=== PATIENT | female | born 1955 | race Caucasian/White ===

== ENCOUNTER 2016-09-30 10:47 | Inpatient (IN) | payer OTHER ==
[2016-09-30] MEDS ORDERED: ACETAMINOPHEN INJECTION 100 ML IVPB ONE (10:54)
--- NOTE | 2016-09-30 10:55 | PDOC ---
History of Present Illness - General History Source: Alf Records, Old Records, Primary Care Provider Exam Limitations: Unresponsive - History of Present Illness Initial Comments: 09/30/16 11:24 The patient is a 61 year old female brought via EMS, with a significant past medical history of anemia, dementia, diabetes, HLD, thyroid disease and hyperparathyroidism, who presents to the emergency department unresponsive. Upon presentation, the patient is unable to give a history. Allergies: None Past surgical history: Cholecystectomy, gastric bypass Social history: No alcohol, tobacco or drug use PMD - Dr. Cruzito Rojas <Rob Connelly - Last Filed: 09/30/16 11:24> <Charmaine Bowman - Last Filed: 09/30/16 14:24> - General Stated Complaint: UNRESPONSIVE Time Seen by Provider: 09/30/16 10:54 Past History <Rob Connelly - Last Filed: 09/30/16 11:24> - Past Medical History Anemia: No Asthma: Yes Cancer: No Cardiac Disorders: No CVA: No COPD: No CHF: No Dementia: Yes Diabetes: Yes GI Disorders: No Disorders: No HTN: No Hypercholesterolemia: Yes Liver Disease: No Seizures: Yes Thyroid Disease: Yes (hyperparathyroidism) - Surgical History Abdominal Surgery: Yes Appendectomy: No Cardiac Surgery: No Cholecystectomy: Yes GI Surgery: Yes (bariatric) Lung Surgery: No Neurologic Surgery: No Orthopedic Surgery: No - Psycho/Social/Smoking Cessation Hx Anxiety: No Suicidal Ideation: No Smoking Status: No Smoking History: Unknown if ever smoked Have you smoked in the past 12 months: No Number of Cigarettes Smoked Daily: 0 Hx Alcohol Use: No Drug/Substance Use Hx: No Substance Use Type: None Hx Substance Use Treatment: No <Charmaine Bowman - Last Filed: 09/30/16 14:24> - Past Medical History Allergies/Adverse Reactions: Allergies Allergy/AdvReac Type Severity Reaction Status Date / Time No Known Allergies Allergy Verified 05/03/16 11:53 Home Medications: Ambulatory Orders Acetaminophen [Extra Strength Non-Aspirin] 500 mg PO BID 09/30/16 Ascorbic Acid [Vitamin C] 500 mg PO DAILY 09/30/16 Atorvastatin Ca [Lipitor] 40 mg PO HS 09/30/16 Heparin - 5,000 unit SQ BID 09/30/16 Insulin (LOG) Aspart [NovoLOG -] 0 unit SQ DAILY 09/30/16 Insulin (Levemir) [Levemir Flexpen -] 16 units SQ DAILY 09/30/16 Insulin (Levemir) [Levemir Flexpen -] 25 units SQ HS 09/30/16 Levetiracetam [Keppra -] 500 mg PO DAILY 09/30/16 Magnesium Oxide [Magnesium] 400 mg PO BID 09/30/16 Multivitamin [Poly-Vitamin] 1 each PO DAILY 09/30/16 Potassium Chloride [KCl -] 40 meq PO DAILY 09/30/16 Ranitidine [Zantac -] 150 mg PO DAILY 09/30/16 Review of Systems - Review of Systems Able to Perform ROS?: No Comments:: 09/30/16 11:25 The patient is unable to provide a history due to unresponsiveness. <Rob Connelly - Last Filed: 09/30/16 11:24> *Physical Exam - Vital Signs Last Vital Signs Temp Pulse Resp BP Pulse Ox 106 F H 117 H 57 H 82/20 09/30/16 10:58 09/30/16 10:58 09/30/16 10:58 09/30/16 10:58 <Rob Connelly - Last Filed: 09/30/16 11:24> - Physical Exam Comments: GENERAL: Lethargic, ill-appearing. HEAD: No signs of trauma EYES: PERRLA, EOMI, sclera anicteric, conjunctiva clear ENT: Auricles normal inspection, hearing grossly normal, nares patent, oropharynx clear without exudates. Dry mucosa NECK: Normal ROM, supple, no lymphadenopathy, JVD, or masses LUNGS: Diffuse rhonchi. Grunting. HEART: Tachycardic. ABDOMEN: Soft, nontender, normoactive bowel sounds. No guarding, no rebound. No masses EXTREMITIES: Normal range of motion, no edema. No clubbing or cyanosis. No cords, erythema, or tenderness NEUROLOGICAL: Unable to assess, patient altered. SKIN: Warm, Dry, normal turgor. Large sacral decubitus ulcer. <Charmaine Bowman - Last Filed: 09/30/16 14:24> ED Treatment Course - LABORATORY CBC & Chemistry Diagram: 09/30/16 11:30 09/30/16 11:30 <Charmaine Bowman - Last Filed: 09/30/16 14:24> Medical Decision Making - Medical Decision Making 09/30/16 11:25 Dr. Cruzito Rojas was called regarding the patient at 11:08am Dr. Rojas was consulted when he came in person to the ED at 11:24am [phone] <Rob Connelly - Last Filed: 09/30/16 11:24> - Critical Care Time Total Critical Care Time (minutes): 35 Critical Care Statement: The care of this patient involved high complexity decision making to prevent further life threatening deterioration of the patient 's condition and/or to evalute & treat vital organ system(s) failure or risk of failure. - Medical Decision Making 09/30/16 11:[address] Rojas at bedside. I have ordered sepsis protocol, IV fluids , vanco/zosyn for presumed sepsis. Will place her on BiPAP for work of breathing. 09/30/16 12:15 Approved for ICU by Dr. Huerta. <Charmaine Bowman - Last Filed: 09/30/16 14:24> *DC/Admit/Observation/Transfer - Attestations Scribe Attestion: 09/30/16 11:25 Documentation prepared by Rob Connelly, acting as medical office worker for Charmaine Bowman MD <Rob Connelly - Last Filed: 09/30/16 11:24> - Discharge Dispostion Admit: Yes <Charmaine Bowman - Last Filed: 09/30/16 14:24> Diagnosis at time of Disposition: Sepsis Qualifiers: Sepsis type: sepsis due to unspecified organism Qualified Code(s): A41.9 - Sepsis, unspecified organism Sacral decubitus ulcer Qualifiers: Pressure ulcer stage: unspecified pressure ulcer stage Qualified Code(s): L89.159 - Pressure ulcer of sacral region, unspecified stage - Discharge Dispostion Condition at time of disposition: Critical
[2016-09-30] MEDS ORDERED: VANCOMYCIN 1,000 MG in DEXTROSE 5%-WATER - 250 ML IVPB ONE (11:06)
[2016-09-30] MEDS ORDERED: PIPERACILLIN/TAZOBACTAM 4.5 GM VIAL IVPB ONE (11:06)
[2016-09-30] MEDS ORDERED: SODIUM CHLORIDE 1,000 ML IV STA ×2 (11:11→12:31)
[2016-09-30] MEDS ORDERED: ACETAMINOPHEN 1000 MG/100 ML VIAL (NON FORMULARY) IVPB ONE ×2 (11:13→22:38)
[2016-09-30 11:40] LABS: VENOUS PH 7.42 (7.32-7.42)
[2016-09-30 11:41] LABS: VENOUS BLOOD GAS HCO3 27.1 meq/L (19-25)
--- NOTE | 2016-09-30 11:42 | HP ---
[id number] Chief Complaint: Low Blood. Unresponsiveness History of Present Illness: Pt is a resident of [facility], with known PMHx significant for Stage 4 sacral ulcer, sacral OM, DM, Advanced Dementia noticed this AM to be unresponsive and have a low SBP ( 80's). Pt came to ER where was found to have Temp of 106, low SBP, tachypneic ( my evaluation 40 breaths/ min.), unresponsive. History Source: Significant Other - Past Medical History BRAID CUTTER: Yes: Dementia (advanced, nonverbal), Seizure Cardiovascular: Yes: Other Pulmonary: Yes: Asthma Gastrointestinal: Yes: Constipation Renal/: Yes: UTI Infectious Disease: Yes: Other (Sacral osteomyelitis Sepsis) Psych: Yes: Other (Dementia) Endocrine: Yes: Diabetes Mellitus, Hyperparathyroidism, Hypothyroidism Dermatology: Yes: Other (Pressure ulcer stage 4) - Past Surgical History Past Surgical History: Yes: Cholecystectomy - Smoking History Smoking history: Unknown if ever smoked Have you smoked in the past 12 months: No Aproximately how many cigarettes per day: 0 - Alcohol/Substance Use Hx Alcohol Use: No History of Substance Use: reports: None - Social History ADL: Support Services History of Recent Travel: No Home Medications - Allergies Allergies/Adverse Reactions: Allergies Allergy/AdvReac Type Severity Reaction Status Date / Time No Known Allergies Allergy Verified 05/03/16 11:53 - Home Medications Home Medications: Ambulatory Orders Acetaminophen [Extra Strength Non-Aspirin] 500 mg PO BID 09/30/16 Ascorbic Acid [Vitamin C] 500 mg PO DAILY 09/30/16 Atorvastatin Ca [Lipitor] 40 mg PO HS 09/30/16 Heparin - 5,000 unit SQ BID 09/30/16 Insulin (LOG) Aspart [NovoLOG -] 0 unit SQ DAILY 09/30/16 Insulin (Levemir) [Levemir Flexpen -] 16 units SQ DAILY 09/30/16 Insulin (Levemir) [Levemir Flexpen -] 25 units SQ HS 09/30/16 Levetiracetam [Keppra -] 500 mg PO DAILY 09/30/16 Magnesium Oxide [Magnesium] 400 mg PO BID 09/30/16 Multivitamin [Poly-Vitamin] 1 each PO DAILY 09/30/16 Potassium Chloride [KCl -] 40 meq PO DAILY 09/30/16 Ranitidine [Zantac -] 150 mg PO DAILY 09/30/16 Review of Systems Unable to obtain ROS, reason: secondary to sepsis. Physical Examination Vital Signs: Vital Signs Temperature 106 F H 09/30/16 10:58 Pulse Rate 120 H 09/30/16 11:33 Respiratory Rate 57 H 09/30/16 10:58 Blood Pressure 82/20 09/30/16 10:58 O2 Sat by Pulse Oximetry (%) 94 L 09/30/16 11:33 Constitutional: Yes: Mild Distress Eyes: Yes: Conjunctiva Clear, EOM Intact, PERRL HENT: Yes: Atraumatic. No: Rhinnorhea, Thrush Neck: Yes: Rigid (old) Cardiovascular: Yes: Tachycardia, S1, S2 Respiratory: Yes: Rhonchi (bilat.), Tachypnea Gastrointestinal: Yes: Normal Bowel Sounds, Soft. No: Palpable Mass ...Rectal Exam: Yes: Deferred Edema: No Integumentary: Yes: Other (stage 4 scral ulcer) Neurological: Yes: Lethargy Labs: pending Problem List - Problems (1) Septic shock Assessment/Plan: IV abtx Bolus IVF, then continue IVF; pt might need pressors to maintan BP (pt. received already over 2 L IVF bolus) Admit to ICU. ID consult. CCM consult Code(s): A41.9 - SEPSIS, UNSPECIFIED ORGANISM R65.21 - SEVERE SEPSIS WITH SEPTIC SHOCK (2) Acute respiratory failure Assessment/Plan: ON BIPAP; Pt is DNI. TO f/u with ICU attending ABG in AM. Code(s): J96.00 - ACUTE RESPIRATORY FAILURE, UNSP W HYPOXIA OR HYPERCAPNIA (3) UTI (urinary tract infection) Assessment/Plan: Might be the source of infection IV abtx F/u UCX Code(s): N39.0 - URINARY TRACT INFECTION, SITE NOT SPECIFIED Qualifiers: Urinary tract infection type: catheter-associated UTI Indwelling urinary catheter type: indwelling urethral catheter Encounter type: initial encounter Qualified Code(s): T83.511A - Infection and inflammatory reaction due to indwelling urethral catheter, initial encounter; N39.0 - Urinary tract infection, site not specified (4) Ulcer of sacral region, stage 4 Code(s): L89.154 - PRESSURE ULCER OF SACRAL REGION, STAGE 4 (5) Diabetes mellitus Assessment/Plan: BGM and Coverage only Code(s): E11.9 - TYPE 2 DIABETES MELLITUS WITHOUT COMPLICATIONS Qualifiers: Diabetes mellitus type: other specified (including FERCHO) (6) Endocarditis Assessment/Plan: HX/o endocarditis Code(s): I38 - ENDOCARDITIS, VALVE UNSPECIFIED (7) Seizure Assessment/Plan: on Keppra Code(s): R56.9 - UNSPECIFIED CONVULSIONS Qualifiers: Convulsion type: unspecified Qualified Code(s): R56.9 - Unspecified convulsions Assessment/Plan Pt. with poor prognosis given overall status, current medical condition. Pt. is DNR, DNI. AM labs. Time spent for patient care: over 75 min
[2016-09-30] MEDS ORDERED: PIPERACILLIN/TAZOB 4.5 GM 100 ML IVPB ONE (11:43)
[2016-09-30 11:46] LABS: URINE APPEARANCE TURBID; URINE BILIRUBIN NEGATIVE (NEGATIVE); URINE COLOR YELLOW; URINE GLUCOSE (UA) NEGATIVE (NEGATIVE); URINE KETONE NEGATIVE (NEGATIVE); URINE NITRITE NEGATIVE (NEGATIVE); URINE UROBILINOGEN NEGATIVE E.U./dl (0.2-1.0)
[2016-09-30 11:48] LABS: BASOPHIL 0.5 % (0-2.0); MCH 26.9 pg (25.7-33.7); MCHC 31.3 g/dl (32.0-36.0); MEAN CELL VOLUME 86.1 fl (80-96); MEAN PLT VOLUME 9.8 fl (7.5-11.1); NEUTROPHILS 88.5 % (42.8-82.8); PLATELET COUNT 216 K/MM3 (134-434); RDW 15.4 % (11.6-15.6); WHITE BLOOD COUNT 14.7 K/mm3 (4.0-10.0)
[2016-09-30] MEDS ORDERED: VANCOMYCIN 1 GRAM (PRE-DOCKED) 250 ML IVPB ONE (11:48)
[2016-09-30 11:50] LABS: URINE BLOOD 1+ (NEGATIVE); URINE LEUK ESTERASE 1+ (NEGATIVE); URINE PROTEIN 3+ (NEGATIVE)
[2016-09-30 12:00] LABS: URINE BACTERIA MANY /hpf (NONE SEEN); URINE MUCUS FEW; URINE RBC 45 /hpf (0-3); URINE WBC 104 /hpf (3-5)
[2016-09-30 12:05] LABS: INR 1.23 (0.82-1.09); PROTHROMBIN TIME (PATIENT) 13.6 SEC (9.98-11.88)
[2016-09-30 12:07] LABS: ACTIVATED PTT 27.7 SECONDS (26.9-34.4)
[2016-09-30 12:15] LABS: ALBUMIN 3.1 g/dl (3.4-5.0); BILIRUBIN,TOTAL 0.5 mg/dL (0.2-1.0); CALCIUM 9.4 mg/dL (8.5-10.1); CREATININE 2.4 mg/dL (0.55-1.02); TOT PROT 7.3 g/dl (6.4-8.2)
--- NOTE | 2016-09-30 12:23 | PN ---
Progress Note, Physician Chief Complaint: ID Consult dictated and discussed with Dr Rojas tachpneic hypotensive febrile - Current Medication List Current Medications: Active Medications Ascorbic Acid (Vitamin C -) 500 mg PO BID ANTONIETA Atorvastatin Calcium (Lipitor -) 40 mg PO HS ANTONIETA Heparin Sodium (Porcine) (Heparin -) 5,000 unit SQ BID ANTONIETA Vancomycin HCl 1,000 mg/ (Dextrose) 250 mls @ 200 mls/hr IVPB ONCE ONE Stop: 09/30/16 12:20 Last Admin: 09/30/16 11:51 Dose: 200 mls/hr Insulin Aspart (Novolog Vial Sliding Scale -) 1 vial SQ Q4H ANTONIETA PRN Reason: Protocol Levetiracetam (Keppra -) 500 mg PO BID ANTONIETA Magnesium Oxide (Mag-Ox -) 800 mg PO BID ANTONIETA Multivitamins/Minerals/Vitamin C (Tab-A-Vit -) 1 tab PO DAILY ANTONIETA Nystatin (Nystop Powder -) 1 applic TP DAILY ANTONIETA Zinc Sulfate (Orazinc -) 220 mg PO DAILY ANTONIETA - Objective Vital Signs: Vital Signs Temperature 106.2 F H 09/30/16 10:58 Pulse Rate 107 H 09/30/16 12:00 Respiratory Rate 35 H 09/30/16 12:00 Blood Pressure 100/40 09/30/16 12:00 O2 Sat by Pulse Oximetry (%) 100 09/30/16 12:00 Constitutional: Yes: Severe Distress, Thin, Other (Venit mask) Cardiovascular: Yes: WNL, Regular Rate and Rhythm, Tachycardia, S1, S2 Respiratory: Yes: WNL, Regular, CTA Bilaterally Gastrointestinal: Yes: Soft. No: Tenderness, Tenderness, Epigastrium Extremities: Yes: Other (Contracted) Edema: No Wound/Incision: Yes: Other (stage 4 sacral decub clean) Labs: CBC, BMP 09/30/16 11:30 INR, PTT INR 1.23 (0.82-1.09) H 09/30/16 11:30 Problem List - Problems (1) Sacral decubitus ulcer Code(s): L89.159 - PRESSURE ULCER OF SACRAL REGION, UNSPECIFIED STAGE Qualifiers: Pressure ulcer stage: unspecified pressure ulcer stage Qualified Code(s ): L89.159 - Pressure ulcer of sacral region, unspecified stage (2) Sepsis Code(s): A41.9 - SEPSIS, UNSPECIFIED ORGANISM Qualifiers: Sepsis type: sepsis due to unspecified organism Qualified Code(s): A41.9 - Sepsis, unspecified organism (3) UTI (urinary tract infection) due to urinary indwelling catheter Code(s): T83.511A - I/I REACT D/T INDWELLING URETHRAL CATHETER, INIT N39.0 - URINARY TRACT INFECTION, SITE NOT SPECIFIED Assessment/Plan Microbiology 05/03/16 12:34 Blood - Peripheral Venous Blood Culture - Final Staphylococcus Epidermidis 05/03/16 12:28 Urine - Urine - Catheterized Urine Culture - Final Proteus Mirabilis Enterococcus Faecalis Laboratory Tests 09/30/16 09/30/16 09/30/16 11:30 11:30 11:30 WBC 14.7 H D Hct 51.3 H D Plt Count 216 INR 1.23 H Ur Leukocyte Esterase 1+ H D ASSESSMENT SEPSIS URINARY SOURCE RESPIRATORY DISTRESS ? ASPIRATION SILENT BY HISTORY DECUBITUS STAGE 4 CLEAN DEMENTIA PLAN ICU LINEZOLID MEROPENEM PROGNOSIS POOR DISCUSSED WITH DR FERNANDA RAINEY
[2016-09-30 12:33] LABS: TROPONIN I 0.55 ng/ml (0.00-0.05)
[2016-09-30] MEDS ORDERED: SODIUM CHLORIDE 2,000 ML IV STA (12:58)
[2016-09-30] MEDS: LINEZOLID 600 MG PREMIX BAG 300 ML IVPB SCH ×2 (13:20→21:17)
--- NOTE | 2016-09-30 13:21 | CONS ---
DATE OF CONSULTATION: DATE OF DICTATION: 09/30/2016 This is a 61-year-old female from [facility] with severe dementia who I am asked to see with sepsis syndrome. She presented to the hospital with a 106 fever, unresponsive, hypotensive, and tachypneic at 40 breaths per minute. She has a history of urinary infections, in the past, including with resistant organism VREF. She has not been recently admitted to the hospital. She has a chronic Alfred catheter and a chronic stage IV sacral decubitus ulcer, according to her primary doctor. She is also noted to have silent aspiration, as per a prior swallowing evaluation. PAST MEDICAL HISTORY: In addition, asthma; sacral decubitus; dementia; diabetes; hyperparathyroidism; hypothyroidism; cholecystectomy. MEDICATIONS: Include atorvastatin; insulin; multivitamins; ranitidine; and Keppra. ALLERGIES: None known. SOCIAL HISTORY: A non-smoker. No history of alcohol or substance abuse. FAMILY HISTORY: Unobtainable. REVIEW OF SYSTEMS: Respiratory: Tachypnea. No cough, hemoptysis. Cardiac: No history of heart murmur, chest pain, palpitations, syncope. GI: No abdominal pain, vomiting, diarrhea. : Chronic indwelling Alfred. SKIN: Stage IV sacral decubitus ulcer. PHYSICAL EXAMINATION: General: Physical examination revealed a thin-appearing woman in extremis, breathing 40 to 50 times a minute, on a Ventimask. Vital signs: Tachycardic at 120; fever of 106; blood pressure 80/40. Neck: Supple. Lungs: Diminished breath sounds. Heart: S1, S2, tachycardic. Abdomen: Soft, nontender, without hepatosplenomegaly. Extremities: Without clubbing, cyanosis, or edema. Contracted. Skin: Revealed a stage IV large sacral decubitus. The white count was 14.7, hemoglobin 16, platelets of 216. BUN and creatinine pending. Lactic acid pending. Urinalysis with 123 WBCs, 4 RBCs, 1+ leukocyte esterase. Chest x-ray shows no acute infiltrate. ASSESSMENT: 1. Sepsis syndrome. 2. Urinary tract infection with purulent, foul-smelling urine from the Alfred catheter. 3. Sacral decubitus ulcer, stage IV. 4. Silent aspiration, by history. 5. History of dementia from early age. 6. 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 PLAN: Blood cultures. Urine culture. Empiric therapy with an aggressive approach toward antibiotics, at this point, with meropenem and linezolid, pending cultures. DNR status to be discussed by Dr. Rojas. The case was discussed at length with Dr. Rojas regarding plan to transfer the patient to the intensive care unit. CASPER RAINEY M.D. [id number]
[2016-09-30 13:40] VITALS: BMI 22.3
[2016-09-30] MEDS: INSULIN SLIDING SCALE (NOVOLOG) 1 VIAL SQ SCH ×3 (16:45→21:27)
[2016-09-30] MEDS: MEROPENEM 1 GM in DEXTROSE 5%-WATER - 100 ML IVPB SCH (17:38)
[2016-09-30] MEDS ORDERED: LORAZEPAM CARPU-JECT 2 MG/ML DISP.SYRIN IVPUSH ONE (17:41)
[2016-09-30] MEDS ORDERED: LORAZEPAM CARPU-JECT 2 MG/ML DISP.SYRIN ONE (17:42)
--- NOTE | 2016-09-30 18:22 | EKG ---
Test Reason : Blood Pressure : / mmHG Vent. Rate : 115 BPM Atrial Rate : 115 BPM P-R Int : 126 ms QRS Dur : 066 ms QT Int : 314 ms P-R-T Axes : 028 -13 050 degrees QTc Int : 434 ms SINUS TACHYCARDIA MODERATE VOLTAGE CRITERIA FOR LVH, MAY BE NORMAL VARIANT NONSPECIFIC ST ABNORMALITY ABNORMAL ECG WHEN COMPARED WITH ECG OF 03-MAY-2016 12:56, ST NOW DEPRESSED IN LATERAL LEADS T WAVE AMPLITUDE HAS INCREASED IN ANTERIOR LEADS Confirmed by GRECIA MANCIA MD ([id number]) on 09/30/2016 6:22:14 PM Referred By: Confirmed By:GRECIA MANCIA MD
[2016-09-30 19:01] LABS: ALBUMIN 2.1 g/dl (3.4-5.0); BILIRUBIN,TOTAL 0.5 mg/dL (0.2-1.0); CALCIUM 7.1 mg/dL (8.5-10.1); CREATININE 1.5 mg/dL (0.55-1.02)
[2016-09-30 19:04] LABS: TROPONIN I 0.33 ng/ml (0.00-0.05)
[2016-09-30] MEDS ORDERED: DOPAMINE 400 MG/D5W - 250 ML IVPB ONE (20:35)
[2016-09-30 20:45] LABS: ARTERIAL BLD GAS O2 SATURATION 98.9 % (90-98.9); ARTERIAL BLOOD GAS BASE EXCESS -4.8 meq/l (-2-2); ARTERIAL BLOOD GAS HCO3 18.4 meq/L (22-26)
[2016-09-30] MEDS ORDERED: DOPAMINE 400 MG/D5W - 250 ML IVPB SCH (20:45)
[2016-09-30 20:46] LABS: ALLENS TEST POSITIVE; ART PUNCT SITE RIGHT RADIAL; LPM/O2% 100%; PT. ON O2? YES; TYPE OF O2 BI-PAP; VENT RATE 16; VT/PRESS 14/6
[2016-09-30] MEDS: ASCORBIC ACID 500 MG TABLET (FP) PO SCH (21:17)
[2016-09-30] MEDS: levETIRAcetam 500 MG/5 ML INJECTION VIAL IVPB SCH (21:17)
[2016-09-30] MEDS: MAGNESIUM OXIDE 400 MG TABLET (FP) PO SCH (21:17)
[2016-09-30] MEDS: HEPARIN NA (PORCINE) 5,000 UNITS/ML 1ML VIAL SQ SCH (21:17)
[2016-09-30] MEDS: ATORVASTATIN CA 40 MG TABLET (FP) PO SCH (21:17)
[2016-09-30] MEDS: CHLORHEXIDINE GLUCONATE 4% CLEANSER FOR DECOLONIZATION TP SCH (21:28)
[2016-09-30] MEDS: MUPIROCIN 2% TOPICAL OINTMENT FOR DECOLONIZATION NS SCH (21:28)
--- NOTE | 2016-09-30 21:33 | CONSULT ---
Consult Consult Specialty:: Pulm/CCM Reason for Consultation:: septic shock, OZZIE, NSTEMI, resp distress - History of Present Illness Chief Complaint: AMS, fever History of Present Illness: This is a 61 yo woman NHR since 2007 for dementia, non verbal bed bound w/ chronic casas at baseline PMH: seizure on keppra, IDDM, stage 4 sacral decub w/ h/o osteomyelitis who presented from the [facility] w/ AMS (unresponsive to stimulation) , hypotension (SBP 80s) respiratory distress (RR 40s) and febrile (106 F). Labs significant for lactate 5, leukocytosis (14.7), SCr (2.4). Hyperkalemia ( 6.4), troponin (0.55) and transaminitis (400/836). Patient placed on NIPPV (20/12 ). U/A: 104 wbc, +LE and many bacteria. Casas changed. Blood and urine cultures sent. ABX started per ID: meropenem, linezolid (h/o VRE). She received IV fluids x 5 liters NS for continued hypotension. Repeat labs: troponin 0.33, SCr 1.4 and lactate 4.2. Patient sent to ICU for continued care. In the ICU patient remains unresponsive to verbal. AB.4/30/137 on NIPPV. Dopamine started via PIV. HCP called. Per documentation from [facility] patient DNR. - History Source History Provided By: Medical Record Limitations to Obtaining History: Unresponsive - Past Medical History [employer]: Yes: Dementia (advanced, nonverbal), Seizure Cardio/Vascular: Yes: Other Pulmonary: Yes: Asthma Gastrointestinal: Yes: Constipation Renal/: Yes: UTI ...: No Infectious Disease: Yes: Other (Sacral osteomyelitis Sepsis) Psych: Yes: Other (Dementia) Endocrine: Yes: Diabetes Mellitus, Hyperparathyroidism, Hypothyroidism Dermatology: Yes: Other (Pressure ulcer stage 4) - Past Surgical History Past Surgical History: Yes: Cholecystectomy - Alcohol/Substance Use Hx Alcohol Use: No History of Substance Use: reports: None - Smoking History Smoking history: Unknown if ever smoked Have you smoked in the past 12 months: No Aproximately how many cigarettes per day: 0 - Social History Usual Living Arrangement: Retirement ADL: Support Services History of Recent Travel: No Home Medications - Allergies Allergies/Adverse Reactions: Allergies Allergy/AdvReac Type Severity Reaction Status Date / Time No Known Allergies Allergy Verified 05/03/16 11:53 - Home Medications Home Medications: Ambulatory Orders Acetaminophen [Extra Strength Non-Aspirin] 500 mg PO BID 09/30/16 Ascorbic Acid [Vitamin C] 500 mg PO DAILY 09/30/16 Atorvastatin Ca [Lipitor] 40 mg PO HS 09/30/16 Heparin - 5,000 unit SQ BID 09/30/16 Insulin (LOG) Aspart [NovoLOG -] 0 unit SQ DAILY 09/30/16 Insulin (Levemir) [Levemir Flexpen -] 16 units SQ DAILY 09/30/16 Insulin (Levemir) [Levemir Flexpen -] 25 units SQ HS 09/30/16 Levetiracetam [Keppra -] 500 mg PO DAILY 09/30/16 Magnesium Oxide [Magnesium] 400 mg PO BID 09/30/16 Multivitamin [Poly-Vitamin] 1 each PO DAILY 09/30/16 Potassium Chloride [KCl -] 40 meq PO DAILY 09/30/16 Ranitidine [Zantac -] 150 mg PO DAILY 09/30/16 Family Disease History - Family Disease History Family History: Unable to Obtain Review of Systems Unable to obtain ROS, reason: AMS, non verbal Physical Exam Vital Signs: Vital Signs Period Temp Pulse Resp BP Sys/Paz Pulse Ox Last 24 Hr 98.6 F-106.2 F 74-120 20-78 70-130/20-78 88-100 Active Medications Ascorbic Acid (Vitamin C -) 500 mg PO BID [facility] Last Admin: 09/30/16 21:17 Dose: Not Given Atorvastatin Calcium (Lipitor -) 40 mg PO HS [facility] Last Admin: 09/30/16 21:17 Dose: Not Given Chlorhexidine Gluconate (Hibiclens For Decolonization -) 1 applic TP HS [facility] Last Admin: 09/30/16 21:28 Dose: 1 applic Heparin Sodium (Porcine) (Heparin -) 5,000 unit SQ BID [facility] Last Admin: 09/30/16 21:17 Dose: 5,000 unit Meropenem 1 gm/ Dextrose 100 mls @ 100 mls/hr IVPB Q8H-IV [facility] PRN Reason: Protocol Last Admin: 09/30/16 17:38 Dose: 100 mls/hr Linezolid (Zyvox 600 Mg Premix Bag (Restricted To Id) -) 300 mls @ 300 mls/hr IVPB BID [facility] Last Admin: 09/30/16 21:17 Dose: 300 mls/hr Dopamine HCl/Dextrose (Dopamine 400 Mg/D5w -) 250 mls @ 11.056 mls/hr IVPB TITR [facility]; 5 MCG/KG/MIN PRN Reason: Protocol Last Admin: 09/30/16 20:40 Dose: 11.056 mls/hr Dextrose/Sodium Chloride (D5-1/2ns -) 1,000 mls @ 75 mls/hr IV ASDIR [facility] Insulin Aspart (Novolog Vial Sliding Scale -) 1 vial SQ Q4H [facility] PRN Reason: Protocol Last Admin: 09/30/16 21:27 Dose: Not Given Levetiracetam (Keppra Injection -) 500 mg IVPB BID [facility] Last Admin: 09/30/16 21:17 Dose: 500 mg Magnesium Oxide (Mag-Ox -) 800 mg PO BID [facility] Last Admin: 09/30/16 21:17 Dose: Not Given Multivitamins/Minerals/Vitamin C (Tab-A-Vit -) 1 tab PO DAILY [facility] Mupirocin (Bactroban Ointment (For Decolonization) -) 1 applic NS BID [facility] Stop: 10/05/16 21:59 Last Admin: 09/30/16 21:28 Dose: 1 applic Nystatin (Nystop Powder -) 1 applic TP DAILY [facility] Zinc Sulfate (Orazinc -) 220 mg PO DAILY [facility] Constitutional: Yes: No Distress, Calm Eyes: Yes: Conjunctiva Clear, PERRL Cardiovascular: Yes: Tachycardia, S1, S2 Respiratory: Yes: On BiPap, Rales (RLL with insp crackles) Gastrointestinal: Yes: Normal Bowel Sounds, Soft Renal/: Yes: Casas Present Extremities: Yes: Cool Edema: No Integumentary: Yes: Pressure Ulcer (stage 4: 8 x 10 with undermining on left) Neurological: Yes: Unresponsive Labs: CBCD WBC 14.7 K/mm3 (4.0-10.0) H D 09/30/16 11:30 RBC 5.96 M/mm3 (3.60-5.2) H D 09/30/16 11:30 Hgb 16.0 GM/dL (10.7-15.3) H D 09/30/16 11:30 Hct 51.3 % (32.4-45.2) H D 09/30/16 11:30 MCV 86.1 fl (80-96) 09/30/16 11:30 MCHC 31.3 g/dl (32.0-36.0) L 09/30/16 11:30 RDW 15.4 % (11.6-15.6) 09/30/16 11:30 Plt Count 216 K/MM3 (134-434) 09/30/16 11:30 MPV 9.8 fl (7.5-11.1) D 09/30/16 11:30 CMP Sodium 152 mmol/L (136-145) H 09/30/16 18:19 Potassium 3.9 mmol/L (3.5-5.1) D 09/30/16 18:19 Chloride 116 mmol/L (98-107) H 09/30/16 18:19 Carbon Dioxide 22 mmol/L (21-32) 09/30/16 18:19 Anion Gap 14 (8-16) 09/30/16 18:19 BUN 57 mg/dL (7-18) H D 09/30/16 18:19 Creatinine 1.5 mg/dL (0.55-1.02) H D 09/30/16 18:19 Creat Clearance w eGFR 35.19 (>60) 09/30/16 18:19 Random Glucose 186 mg/dL (74-106) H D 09/30/16 18:19 Calcium 7.1 mg/dL (8.5-10.1) L D 09/30/16 18:19 Total Bilirubin 0.5 mg/dL (0.2-1.0) 09/30/16 18:19 AST 337 U/L (15-37) H 09/30/16 18:19 ALT 579 U/L (12-78) H D 09/30/16 18:19 Alkaline Phosphatase 108 U/L (45-117) D 09/30/16 18:19 Total Protein 5.0 g/dl (6.4-8.2) L D 09/30/16 18:19 Albumin 2.1 g/dl (3.4-5.0) L D 09/30/16 18:19 CARDIAC ENZYMES Creatine Kinase 134 IU/L (26-192) 09/30/16 18:19 Troponin I 0.33 ng/ml (0.00-0.05) H 09/30/16 18:19 Laboratory Tests 09/30/16 18:19 Lactic Acid 4.295 H* Urine Test Results Urine Color Yellow 09/30/16 11:30 Urine Appearance Turbid 09/30/16 11:30 Urine pH 8.0 (5.0-8.0) 09/30/16 11:30 Ur Specific [place] 1.015 (1.001-1.035) 09/30/16 11:30 Urine Protein 3+ (NEGATIVE) H 09/30/16 11:30 Urine Glucose (UA) Negative (NEGATIVE) 09/30/16 11:30 Urine Ketones Negative (NEGATIVE) 09/30/16 11:30 Urine Blood 1+ (NEGATIVE) H 09/30/16 11:30 Urine Nitrite Negative (NEGATIVE) 09/30/16 11:30 Urine Bilirubin Negative (NEGATIVE) 09/30/16 11:30 Ur Leukocyte Esterase 1+ (NEGATIVE) H D 09/30/16 11:30 Urine RBC 45 /hpf (0-3) 09/30/16 11:30 Urine WBC 104 /hpf (3-5) 09/30/16 11:30 Urine Bacteria Many /hpf (NONE SEEN) 09/30/16 11:30 Urine Mucus Few 09/30/16 11:30 Imaging - Results Chest X-ray: Report Reviewed, Image Reviewed Problem List - Problems (1) Sacral decubitus ulcer Code(s): L89.159 - PRESSURE ULCER OF SACRAL REGION, UNSPECIFIED STAGE Qualifiers: Pressure ulcer stage: unspecified pressure ulcer stage Qualified Code(s ): L89.159 - Pressure ulcer of sacral region, unspecified stage (2) Septic shock Code(s): A41.9 - SEPSIS, UNSPECIFIED ORGANISM R65.21 - SEVERE SEPSIS WITH SEPTIC SHOCK (3) UTI (urinary tract infection) due to urinary indwelling catheter Code(s): T83.511A - I/I REACT D/T INDWELLING URETHRAL CATHETER, INIT N39.0 - URINARY TRACT INFECTION, SITE NOT SPECIFIED (4) Diabetes mellitus Code(s): E11.9 - TYPE 2 DIABETES MELLITUS WITHOUT COMPLICATIONS Qualifiers: Diabetes mellitus type: other specified (including FERCHO) (5) Fever Code(s): R50.9 - FEVER, UNSPECIFIED (6) Seizure Code(s): R56.9 - UNSPECIFIED CONVULSIONS Qualifiers: Convulsion type: unspecified Qualified Code(s): R56.9 - Unspecified convulsions (7) Transaminitis Code(s): R74.0 - NONSPEC ELEV OF LEVELS OF TRANSAMNS & LACTIC ACID DEHYDRGNSE (8) Ulcer of sacral region, stage 4 Code(s): L89.154 - PRESSURE ULCER OF SACRAL REGION, STAGE 4 (9) OZZIE (acute kidney injury) Code(s): N17.9 - ACUTE KIDNEY FAILURE, UNSPECIFIED Assessment/Plan 61 yo woman PMH: dementia, sz d/o, IDDM, stage 4 decub who presented with AMS, fever, respiratory distress requiring NIPPV, septic shock most likely urosepsis (chronic casas) +/- pneumonia, +/- wound infection/osteo, OZZIE (SCr 2.5, baseline 0.4) likely prerenal, hyperNa, NSTEMI likely stress related, transaminitis likely r/t shock liver -cont IV fluids (d5 NS @ at 125) -renal dose medication -ABX oer ID: linezolid and meropenem -f/u culture data -surgical evaluation of decub -cont NIPPV, titrate Fio2 for Sat >90% -cont pressors for MAP 60-70 -abdominal u/s given transaminitis and OZZIE -NPO given AMS -trend LFTs -cont Keppra -DVT and GI proph -DNR, call out to HCP to discuss goals of care ie: central access Boerem ACNP Pulm/CCM CCT: 45m
[2016-09-30] MEDS: DEXTROSE 5%-0.45% SALINE 1,000 ML IV SCH (21:55)
[2016-09-30] MEDS ORDERED: levETIRAcetam 500 MG TABLET (FP) PO SCH (22:00)
[2016-10-01] MEDS: INSULIN SLIDING SCALE (NOVOLOG) 1 VIAL SQ SCH ×6 (02:35→21:10)
[2016-10-01] MEDS: MEROPENEM 1 GM in DEXTROSE 5%-WATER - 100 ML IVPB SCH ×3 (02:35→21:16)
[2016-10-01 06:15] LABS: MCH 27.1 pg (25.7-33.7); MCHC 31.7 g/dl (32.0-36.0); MEAN CELL VOLUME 85.5 fl (80-96); MEAN PLT VOLUME 10.3 fl (7.5-11.1); PLATELET COUNT 148 K/MM3 (134-434); RDW 15.1 % (11.6-15.6); WHITE BLOOD COUNT 16.5 K/mm3 (4.0-10.0)
[2016-10-01 06:44] LABS: ALBUMIN 2.1 g/dl (3.4-5.0); BILIRUBIN,DIRECT 0.2 mg/dL (0.0-0.2); SGOT/AST 189 U/L (15-37)
[2016-10-01 06:47] LABS: ALK PHOS 109 U/L (45-117); BILIRUBIN,TOTAL 0.4 mg/dL (0.2-1.0); TOT PROT 5.3 g/dl (6.4-8.2)
[2016-10-01 06:50] LABS: SGPT/ALT 551 U/L (12-78)
--- NOTE | 2016-10-01 07:24 | PN ---
Progress Note, Physician Chief Complaint: ID ICU follow up for this 61 year old female with early onset dementia seen in ER yesterday after presenting with severe sepsis syndrome and fever 106! History of gram negative bacteremias in the past treated here and history of resistant organisms VREF I gave her Linezolid and Meropenem now day 1 Rx. Yesterday she need Ventimask now 100%. Since I saw her Dopamine added for hypotension. Presently in severe distress and temp still febrile though 102. - Current Medication List Current Medications: Active Medications Ascorbic Acid (Vitamin C -) 500 mg PO BID [facility] Last Admin: 09/30/16 21:17 Dose: Not Given Atorvastatin Calcium (Lipitor -) 40 mg PO HS [facility] Last Admin: 09/30/16 21:17 Dose: Not Given Chlorhexidine Gluconate (Hibiclens For Decolonization -) 1 applic TP HS [facility] Last Admin: 09/30/16 21:28 Dose: 1 applic Heparin Sodium (Porcine) (Heparin -) 5,000 unit SQ BID [facility] Last Admin: 09/30/16 21:17 Dose: 5,000 unit Meropenem 1 gm/ Dextrose 100 mls @ 100 mls/hr IVPB Q8H-IV [facility] PRN Reason: Protocol Last Admin: 10/01/16 02:35 Dose: 100 mls/hr Linezolid (Zyvox 600 Mg Premix Bag (Restricted To Id) -) 300 mls @ 300 mls/hr IVPB BID [facility] Last Admin: 09/30/16 21:17 Dose: 300 mls/hr Dopamine HCl/Dextrose (Dopamine 400 Mg/D5w -) 250 mls @ 11.056 mls/hr IVPB TITR [facility]; 5 MCG/KG/MIN PRN Reason: Protocol Last Titration: 09/30/16 21:00 Dose: 10 mcg/kg/min Dextrose/Sodium Chloride (D5-1/2ns -) 1,000 mls @ 75 mls/hr IV ASDIR [facility] Last Admin: 09/30/16 21:55 Dose: 75 mls/hr Insulin Aspart (Novolog Vial Sliding Scale -) 1 vial SQ Q4HPO [facility] PRN Reason: Protocol Last Admin: 10/01/16 05:59 Dose: 4 units Levetiracetam (Keppra Injection -) 500 mg IVPB BID [facility] Last Admin: 09/30/16 21:17 Dose: 500 mg Magnesium Oxide (Mag-Ox -) 800 mg PO BID [facility] Last Admin: 09/30/16 21:17 Dose: Not Given Multivitamins/Minerals/Vitamin C (Tab-A-Vit -) 1 tab PO DAILY [facility] Mupirocin (Bactroban Ointment (For Decolonization) -) 1 applic NS BID [facility] Stop: 10/05/16 21:59 Last Admin: 09/30/16 21:28 Dose: 1 applic Nystatin (Nystop Powder -) 1 applic TP DAILY [facility] Pantoprazole Sodium (Protonix 40mg Ivpb (Pre-Docked)) 40 mg IVPB DAILY [facility] Zinc Sulfate (Orazinc -) 220 mg PO DAILY [facility] - Objective Vital Signs: Vital Signs Temperature 102.5 F H 10/01/16 05:49 Pulse Rate 116 H 10/01/16 05:49 Respiratory Rate 26 H 10/01/16 05:49 Blood Pressure 106/59 10/01/16 05:49 O2 Sat by Pulse Oximetry (%) 96 10/01/16 02:53 Constitutional: Yes: Severe Distress, Other (Ventimask) HENT: Yes: WNL, Atraumatic Cardiovascular: Yes: Tachycardia, S1, S2 Respiratory: Yes: WNL, Regular, CTA Bilaterally, Rhonchi. No: Rales Gastrointestinal: Yes: WNL, Normal Bowel Sounds, Hepatomegaly. No: Splenomegaly , Tenderness, Tenderness, Rebound Extremities: Yes: Other (peripheralIV). No: Cold, Cool, Cyanosis Edema: No Labs: CBC, BMP 10/01/16 05:20 09/30/16 18:19 INR, PTT INR 1.23 (0.82-1.09) H 09/30/16 11:30 Problem List - Problems (1) Sacral decubitus ulcer Code(s): L89.159 - PRESSURE ULCER OF SACRAL REGION, UNSPECIFIED STAGE Qualifiers: Pressure ulcer stage: unspecified pressure ulcer stage Qualified Code(s ): L89.159 - Pressure ulcer of sacral region, unspecified stage (2) Sepsis Code(s): A41.9 - SEPSIS, UNSPECIFIED ORGANISM Qualifiers: Sepsis type: sepsis due to unspecified organism Qualified Code(s): A41.9 - Sepsis, unspecified organism (3) UTI (urinary tract infection) due to urinary indwelling catheter Code(s): T83.511A - I/I REACT D/T INDWELLING URETHRAL CATHETER, INIT N39.0 - URINARY TRACT INFECTION, SITE NOT SPECIFIED (4) Elevated LFTs Code(s): R79.89 - OTHER SPECIFIED ABNORMAL FINDINGS OF BLOOD CHEMISTRY Assessment/Plan Microbiology Laboratory Tests 09/30/16 09/30/16 09/30/16 11:30 11:30 11:30 WBC Hgb Plt Count INR 1.23 H ABG pH ABG pCO2 at Pt Temp ABG pO2 at Pt Temp Oxygen Flow Rate BUN Creatinine Pending Creat Clearance w eGFR Lactic Acid AST ALT Alkaline Phosphatase Urine RBC 45 09/30/16 09/30/16 10/01/16 18:19 20:40 05:20 WBC 16.5 H Hgb 13.9 D Plt Count 148 D INR ABG pH 7.40 ABG pCO2 at Pt Temp 30.5 L ABG pO2 at Pt Temp 137.0 H Oxygen Flow Rate 100% BUN 57 H D Creatinine 1.5 H D Creat Clearance w eGFR 35.19 Lactic Acid AST ALT Alkaline Phosphatase Urine RBC 10/01/16 10/01/16 05:20 05:20 WBC Hgb Plt Count INR ABG pH ABG pCO2 at Pt Temp ABG pO2 at Pt Temp Oxygen Flow Rate BUN Creatinine Creat Clearance w eGFR Lactic Acid 5.969 H* AST 189 H D ALT 551 H Alkaline Phosphatase 109 Urine RBC Assessment Sepsis syndrome presumed to be urinary source at this time This is what she has had previously. Urine was purulent foul smelling URinary tract infection with histosry of resistant organisms VREF in past Early onset dementia NIDDM ? History of seizure disorder ( on Kepppra) Acute kidney injury Abnormal LFT most likely shock liver related but rule out biliary disease stones Stage 4 sacral decubitus Plan Lower carbepenem dose though kidney function improving Sonogram liver GB Attempting to reach family member re end of life concerns/questions 38 minutes spent with pt today critical care time Christopher [place] Antibiotics Await c/s
[2016-10-01] MEDS ORDERED: LORAZEPAM CARPU-JECT 2 MG/ML DISP.SYRIN ONE ×2 (07:29→16:00)
[2016-10-01] MEDS ORDERED: LORAZEPAM CARPU-JECT 2 MG/ML DISP.SYRIN IVPUSH ONE ×2 (07:39→16:45)
[2016-10-01] MEDS ORDERED: SODIUM CHLORIDE 1,000 ML IV STA (07:40)
--- NOTE | 2016-10-01 07:57 | PN ---
Progress Note (short form) - Note Progress Note: Seen and examined in ICU Cont on NIPPV (21/02) 100% Cont on DPA gtt 15mcg->10mcg/kg/min Seizure activity this AM t/w rose mary Spoke with HCP Ivan Geronimo this AM: DNR/DNI, no aggressive measures: no CVCs, no dialysis, no blood transfusions Plan to focus on comfort, cont on ABX for planned course Current Medications Ascorbic Acid (Vitamin C -) 500 mg PO BID [facility] Last Admin: 09/30/16 21:17 Dose: Not Given Atorvastatin Calcium (Lipitor -) 40 mg PO HS [facility] Last Admin: 09/30/16 21:17 Dose: Not Given Chlorhexidine Gluconate (Hibiclens For Decolonization -) 1 applic TP HS [facility] Last Admin: 09/30/16 21:28 Dose: 1 applic Heparin Sodium (Porcine) (Heparin -) 5,000 unit SQ BID [facility] Last Admin: 09/30/16 21:17 Dose: 5,000 unit Linezolid (Zyvox 600 Mg Premix Bag (Restricted To Id) -) 300 mls @ 300 mls/hr IVPB BID [facility] Last Admin: 09/30/16 21:17 Dose: 300 mls/hr Dopamine HCl/Dextrose (Dopamine 400 Mg/D5w -) 250 mls @ 11.056 mls/hr IVPB TITR [facility]; 5 MCG/KG/MIN PRN Reason: Protocol Last Titration: 09/30/16 22:00 Dose: 15 mcg/kg/min Dextrose/Sodium Chloride (D5-1/2ns -) 1,000 mls @ 75 mls/hr IV ASDIR [facility] Last Admin: 09/30/16 21:55 Dose: 75 mls/hr Meropenem 1 gm/ Dextrose 100 mls @ 100 mls/hr IVPB BID [facility] PRN Reason: Protocol Sodium Chloride (Normal Saline -) 1,000 mls @ 1,000 mls/hr IV ASDIR STA Stop: 10/01/16 08:39 Last Admin: 10/01/16 07:42 Dose: 1,000 mls/hr Insulin Aspart (Novolog Vial Sliding Scale -) 1 vial SQ Q4HPO [facility] PRN Reason: Protocol Last Admin: 10/01/16 05:59 Dose: 4 units Levetiracetam (Keppra Injection -) 500 mg IVPB BID [facility] Last Admin: 09/30/16 21:17 Dose: 500 mg Magnesium Oxide (Mag-Ox -) 800 mg PO BID [facility] Last Admin: 09/30/16 21:17 Dose: Not Given Multivitamins/Minerals/Vitamin C (Tab-A-Vit -) 1 tab PO DAILY [facility] Mupirocin (Bactroban Ointment (For Decolonization) -) 1 applic NS BID [facility] Stop: 10/05/16 21:59 Last Admin: 09/30/16 21:28 Dose: 1 applic Nystatin (Nystop Powder -) 1 applic TP DAILY [facility] Pantoprazole Sodium (Protonix 40mg Ivpb (Pre-Docked)) 40 mg IVPB DAILY [facility] Zinc Sulfate (Orazinc -) 220 mg PO DAILY [facility] Exam: General: ill appearing woman on NIPPV HEENT: PERRL Pulm: insp crackles R>L CV: s1, s2 tachy Abd: SNTND Ext: cool to touch CBCD WBC 16.5 K/mm3 (4.0-10.0) H 10/01/16 05:20 RBC 5.12 M/mm3 (3.60-5.2) 10/01/16 05:20 Hgb 13.9 GM/dL (10.7-15.3) D 10/01/16 05:20 Hct 43.7 % (32.4-45.2) 10/01/16 05:20 MCV 85.5 fl (80-96) 10/01/16 05:20 MCHC 31.7 g/dl (32.0-36.0) L 10/01/16 05:20 RDW 15.1 % (11.6-15.6) 10/01/16 05:20 Plt Count 148 K/MM3 (134-434) D 10/01/16 05:20 MPV 10.3 fl (7.5-11.1) 10/01/16 05:20 CMP Sodium 152 mmol/L (136-145) H 09/30/16 18:19 Potassium 3.9 mmol/L (3.5-5.1) D 09/30/16 18:19 Chloride 116 mmol/L (98-107) H 09/30/16 18:19 Carbon Dioxide 22 mmol/L (21-32) 09/30/16 18:19 Anion Gap 14 (8-16) 09/30/16 18:19 BUN 57 mg/dL (7-18) H D 09/30/16 18:19 Creatinine 1.5 mg/dL (0.55-1.02) H D 09/30/16 18:19 Creat Clearance w eGFR 35.19 (>60) 09/30/16 18:19 Random Glucose 186 mg/dL (74-106) H D 09/30/16 18:19 Calcium 7.1 mg/dL (8.5-10.1) L D 09/30/16 18:19 Total Bilirubin 0.4 mg/dL (0.2-1.0) 10/01/16 05:20 AST 189 U/L (15-37) H D 10/01/16 05:20 ALT 551 U/L (12-78) H 10/01/16 05:20 Alkaline Phosphatase 109 U/L (45-117) 10/01/16 05:20 Total Protein 5.3 g/dl (6.4-8.2) L 10/01/16 05:20 Albumin 2.1 g/dl (3.4-5.0) L 10/01/16 05:20 CARDIAC ENZYMES Creatine Kinase 134 IU/L (26-192) 09/30/16 18:19 Troponin I 0.33 ng/ml (0.00-0.05) H 09/30/16 18:19 Micro:pending Problem List - Problems (1) Sacral decubitus ulcer Code(s): L89.159 - PRESSURE ULCER OF SACRAL REGION, UNSPECIFIED STAGE Qualifiers: Pressure ulcer stage: unspecified pressure ulcer stage Qualified Code(s ): L89.159 - Pressure ulcer of sacral region, unspecified stage (2) Septic shock Code(s): A41.9 - SEPSIS, UNSPECIFIED ORGANISM R65.21 - SEVERE SEPSIS WITH SEPTIC SHOCK (3) UTI (urinary tract infection) due to urinary indwelling catheter Code(s): T83.511A - I/I REACT D/T INDWELLING URETHRAL CATHETER, INIT N39.0 - URINARY TRACT INFECTION, SITE NOT SPECIFIED (4) Diabetes mellitus Code(s): E11.9 - TYPE 2 DIABETES MELLITUS WITHOUT COMPLICATIONS Qualifiers: Diabetes mellitus type: other specified (including FERCHO) (5) Fever Code(s): R50.9 - FEVER, UNSPECIFIED (6) Seizure Code(s): R56.9 - UNSPECIFIED CONVULSIONS Qualifiers: Convulsion type: unspecified Qualified Code(s): R56.9 - Unspecified convulsions (7) Transaminitis Code(s): R74.0 - NONSPEC ELEV OF LEVELS OF TRANSAMNS & LACTIC ACID DEHYDRGNSE (8) Ulcer of sacral region, stage 4 Code(s): L89.154 - PRESSURE ULCER OF SACRAL REGION, STAGE 4 (9) OZZIE (acute kidney injury) Code(s): N17.9 - ACUTE KIDNEY FAILURE, UNSPECIFIED Assessment/Plan 61 yo woman PMH: dementia, sz d/o, IDDM, stage 4 decub who presented with AMS, fever, respiratory distress requiring NIPPV, septic shock most likely urosepsis (chronic casas) +/- pneumonia, +/- wound infection/osteo, OZZIE (SCr 2.5, baseline 0.4) likely prerenal, hyperNa, NSTEMI likely stress related, transaminitis likely r/t shock liver. Now DNR/DNI no escalation of aggressive care -cont IV fluids (d5 NS @ at 125) -renal dose medication -ABX oer ID: linezolid and meropenem -f/u culture data -surgical evaluation of decub -cont NIPPV, titrate Fio2 for Sat >90% -cont pressors for MAP 60-70, will wean off but not increase given goals of care -NPO given AMS -cont Keppra, ativan prn for seizure -DVT and GI proph -DNR/DNI no escalation of aggressive measures -focus on comfort, will add morphine drip if signs of distress Sam ACNP Pulm/CCM CCT: 45m Problem List - Problems (1) Sacral decubitus ulcer Code(s): L89.159 - PRESSURE ULCER OF SACRAL REGION, UNSPECIFIED STAGE Qualifiers: Pressure ulcer stage: unspecified pressure ulcer stage Qualified Code(s ): L89.159 - Pressure ulcer of sacral region, unspecified stage (2) Septic shock Code(s): A41.9 - SEPSIS, UNSPECIFIED ORGANISM R65.21 - SEVERE SEPSIS WITH SEPTIC SHOCK (3) UTI (urinary tract infection) due to urinary indwelling catheter Code(s): T83.511A - I/I REACT D/T INDWELLING URETHRAL CATHETER, INIT N39.0 - URINARY TRACT INFECTION, SITE NOT SPECIFIED (4) Diabetes mellitus Code(s): E11.9 - TYPE 2 DIABETES MELLITUS WITHOUT COMPLICATIONS Qualifiers: Diabetes mellitus type: other specified (including FERCHO) (5) Fever Code(s): R50.9 - FEVER, UNSPECIFIED (6) Seizure Code(s): R56.9 - UNSPECIFIED CONVULSIONS Qualifiers: Convulsion type: unspecified Qualified Code(s): R56.9 - Unspecified convulsions (7) Transaminitis Code(s): R74.0 - NONSPEC ELEV OF LEVELS OF TRANSAMNS & LACTIC ACID DEHYDRGNSE (8) Ulcer of sacral region, stage 4 Code(s): L89.154 - PRESSURE ULCER OF SACRAL REGION, STAGE 4 (9) OZZIE (acute kidney injury) Code(s): N17.9 - ACUTE KIDNEY FAILURE, UNSPECIFIED
[2016-10-01] MEDS ORDERED: morphine CARPU-JECT 2 MG/1 ML DISP.SYRIN ONE (09:15)
[2016-10-01 09:20] LABS: PLATELET COMMENT2 NO CLOTTING DETECTED; PLATELET ESTIMATE SLT DECREASED (NORMAL)
[2016-10-01 09:21] LABS: POIKILOCYTOSIS 1+; POLYCHROMASIA 1+
[2016-10-01 09:36] LABS: ANION GAP 14 (8-16); CALCIUM 7.4 mg/dL (8.5-10.1); CO2 19 mmol/L (21-32); CREATININE 0.6 mg/dL (0.55-1.02); GLUCOSE,RANDOM 169 mg/dL (74-106)
[2016-10-01] MEDS ORDERED: morphine CARPU-JECT 2 MG/1 ML DISP.SYRIN IVPUSH PRN (09:43)
[2016-10-01] MEDS: levETIRAcetam 500 MG/5 ML INJECTION VIAL IVPB SCH ×2 (09:46→21:09)
[2016-10-01] MEDS: LINEZOLID 600 MG PREMIX BAG 300 ML IVPB SCH ×2 (09:46→21:09)
[2016-10-01] MEDS: PANTOPRAZOLE SODIUM 40 MG/100 ML PRE-DOCKED IVPB SCH (09:46)
[2016-10-01] MEDS: MULTIVITAMINS (DAILY MVI) TABLET (FP) PO SCH (09:46)
[2016-10-01] MEDS: ASCORBIC ACID 500 MG TABLET (FP) PO SCH ×2 (09:46→21:10)
[2016-10-01] MEDS: NYSTATIN POWDER 100,000 UNITS/GM - 15 GM TOPICAL POWDER TP SCH (09:47)
[2016-10-01] MEDS: ZINC SULFATE 220 MG CAPSULE (FP) PO SCH (09:47)
[2016-10-01] MEDS: MAGNESIUM OXIDE 400 MG TABLET (FP) PO SCH (09:48)
[2016-10-01] MEDS: MUPIROCIN 2% TOPICAL OINTMENT FOR DECOLONIZATION NS SCH ×2 (09:48→21:09)
[2016-10-01] MEDS ORDERED: PANTOPRAZOLE SODIUM 40 MG in SODIUM CHLORIDE 100 ML IVPB SCH (10:00)
[2016-10-01] MEDS ORDERED: MORPHINE 100 MG in SODIUM CHLORIDE 98 ML IVPB SCH (10:15)
[2016-10-01] MEDS: HEPARIN NA (PORCINE) 5,000 UNITS/ML 1ML VIAL SQ SCH ×2 (10:15→21:09)
--- NOTE | 2016-10-01 12:27 | PN ---
Progress Note, Physician History of Present Illness: Pt. is in ICU, on BIPAP, unresponsive to voice and verbal stimuli ( pt received Ativan IVP, is on Morphine drip) Case was d/w pt.'s nurse at bedside, medications and care was reviewed. - Current Medication List Current Medications: Active Medications Ascorbic Acid (Vitamin C -) 500 mg PO BID [facility] Last Admin: 10/01/16 09:46 Dose: Not Given Atorvastatin Calcium (Lipitor -) 40 mg PO HS [facility] Last Admin: 09/30/16 21:17 Dose: Not Given Chlorhexidine Gluconate (Hibiclens For Decolonization -) 1 applic TP HS [facility] Last Admin: 09/30/16 21:28 Dose: 1 applic Heparin Sodium (Porcine) (Heparin -) 5,000 unit SQ BID [facility] Last Admin: 10/01/16 10:15 Dose: 5,000 unit Linezolid (Zyvox 600 Mg Premix Bag (Restricted To Id) -) 300 mls @ 300 mls/hr IVPB BID [facility] Last Admin: 10/01/16 09:46 Dose: 300 mls/hr Dextrose/Sodium Chloride (D5-1/2ns -) 1,000 mls @ 75 mls/hr IV ASDIR [facility] Last Admin: 09/30/16 21:55 Dose: 75 mls/hr Meropenem 1 gm/ Dextrose 100 mls @ 100 mls/hr IVPB BID [facility] PRN Reason: Protocol Last Admin: 10/01/16 09:47 Dose: 100 mls/hr Morphine Sulfate 100 mg/ (Sodium Chloride) 100 mls @ 2 mls/hr IVPB TITR [facility]; 2 MG/HR PRN Reason: Protocol Last Admin: 10/01/16 10:16 Dose: 2 mls/hr Insulin Aspart (Novolog Vial Sliding Scale -) 1 vial SQ Q4HPO [facility] PRN Reason: Protocol Last Admin: 10/01/16 10:09 Dose: Not Given Levetiracetam (Keppra Injection -) 500 mg IVPB BID [facility] Last Admin: 10/01/16 09:46 Dose: 500 mg Magnesium Oxide (Mag-Ox -) 800 mg PO BID [facility] Last Admin: 10/01/16 09:48 Dose: Not Given Morphine Sulfate (Morphine Injection -) 2 mg IVPUSH Q3H PRN PRN Reason: PAIN Last Admin: 10/01/16 09:45 Dose: 2 mg Multivitamins/Minerals/Vitamin C (Tab-A-Vit -) 1 tab PO DAILY [facility] Last Admin: 10/01/16 09:46 Dose: Not Given Mupirocin (Bactroban Ointment (For Decolonization) -) 1 applic NS BID [facility] Stop: 10/05/16 21:59 Last Admin: 10/01/16 09:48 Dose: 1 applic Nystatin (Nystop Powder -) 1 applic TP DAILY [facility] Last Admin: 10/01/16 09:47 Dose: 1 appful Pantoprazole Sodium (Protonix 40mg Ivpb (Pre-Docked)) 40 mg IVPB DAILY [facility] Last Admin: 10/01/16 09:46 Dose: 40 mg Zinc Sulfate (Orazinc -) 220 mg PO DAILY [facility] Last Admin: 10/01/16 09:47 Dose: Not Given - Objective Vital Signs: Vital Signs Temperature 100.2 F H 10/01/16 10:00 Pulse Rate 92 H 10/01/16 12:05 Respiratory Rate 28 H 10/01/16 10:00 Blood Pressure 138/68 10/01/16 10:00 O2 Sat by Pulse Oximetry (%) 100 10/01/16 12:05 Constitutional: Yes: No Distress, Calm Cardiovascular: Yes: Regular Rate and Rhythm, S1, S2 Respiratory: Yes: Regular, Other (coasrse at bases) Gastrointestinal: Yes: Normal Bowel Sounds, Soft. No: Tenderness Edema: No Neurological: Yes: Other (Sedated, on Morphine drip for comfort) Labs: CBC, BMP 10/01/16 05:20 10/01/16 05:49 INR, PTT INR 1.23 (0.82-1.09) H 09/30/16 11:30 Problem List - Problems (1) Septic shock Assessment/Plan: IV abtx- per ID IVF Admitted to ICU ID consult and f/u appreciated CCM consult appreciated Pt was on IV pressor, it was DC'ed per HCP request. I spoke with Mr. Geronimo (HCP) in ICU, case was reviewed, plan of care was reviewed, all questions were answered. Code(s): A41.9 - SEPSIS, UNSPECIFIED ORGANISM R65.21 - SEVERE SEPSIS WITH SEPTIC SHOCK (2) UTI (urinary tract infection) Assessment/Plan: IV abtx per ID- today urine looks better. Code(s): N39.0 - URINARY TRACT INFECTION, SITE NOT SPECIFIED Qualifiers: Urinary tract infection type: catheter-associated UTI Indwelling urinary catheter type: indwelling urethral catheter Encounter type: initial encounter Qualified Code(s): T83.511A - Infection and inflammatory reaction due to indwelling urethral catheter, initial encounter; N39.0 - Urinary tract infection, site not specified (3) Ulcer of sacral region, stage 4 Code(s): L89.154 - PRESSURE ULCER OF SACRAL REGION, STAGE 4 (4) Diabetes mellitus Assessment/Plan: BGM and Coverage only Code(s): E11.9 - TYPE 2 DIABETES MELLITUS WITHOUT COMPLICATIONS Qualifiers: Diabetes mellitus type: other specified (including FERCHO) (5) Endocarditis Assessment/Plan: HX/o endocarditis Code(s): I38 - ENDOCARDITIS, VALVE UNSPECIFIED (6) Seizure Assessment/Plan: on IV Keppra, required Ativan Code(s): R56.9 - UNSPECIFIED CONVULSIONS Qualifiers: Convulsion type: unspecified Qualified Code(s): R56.9 - Unspecified convulsions (7) Elevated liver enzymes Assessment/Plan: Probable secondary to sepsis to monitor Code(s): R74.8 - ABNORMAL LEVELS OF OTHER SERUM ENZYMES (8) Acute renal insufficiency Code(s): N28.9 - DISORDER OF KIDNEY AND URETER, UNSPECIFIED (9) Acute respiratory failure Assessment/Plan: Improving To monitor Code(s): J96.00 - ACUTE RESPIRATORY FAILURE, UNSP W HYPOXIA OR HYPERCAPNIA (10) Hypokalemia Assessment/Plan: Replete K Check Mg level Code(s): E87.6 - HYPOKALEMIA Assessment/Plan AM labs Time spent for managing pt's care: over 45 min
[2016-10-01 12:39] LABS: THYROID STIMULATING HORMONE 1.48 uIU/ml (0.358-3.74)
[2016-10-01] MEDS: KCL 10 MEQ IVPB 100 ML IVPB SCH ×5 (14:00→22:00)
[2016-10-01] MEDS: ATORVASTATIN CA 40 MG TABLET (FP) PO SCH (21:10)
[2016-10-01] MEDS: DEXTROSE 5%-0.45% SALINE 1,000 ML IV SCH (21:11)
[2016-10-01] MEDS: CHLORHEXIDINE GLUCONATE 4% CLEANSER FOR DECOLONIZATION TP SCH (21:11)
[2016-10-01] MEDS ORDERED: PT OWN MED DRAWER 7, Y5N ONE (21:16)
[2016-10-02] MEDS: INSULIN SLIDING SCALE (NOVOLOG) 1 VIAL SQ SCH ×6 (03:08→21:39)
[2016-10-02] MEDS: MAGNESIUM OXIDE 400 MG TABLET (FP) PO SCH ×2 (03:09→10:00)
[2016-10-02 06:04] LABS: MCH 27.2 pg (25.7-33.7); MCHC 32.1 g/dl (32.0-36.0); MEAN CELL VOLUME 84.9 fl (80-96); MEAN PLT VOLUME 9.5 fl (7.5-11.1); PLATELET COUNT 89 K/MM3 (134-434); RDW 15.3 % (11.6-15.6); WHITE BLOOD COUNT 12.5 K/mm3 (4.0-10.0)
[2016-10-02 06:30] LABS: ANION GAP 8 (8-16); BILIRUBIN,TOTAL 0.3 mg/dL (0.2-1.0); CALCIUM 7.1 mg/dL (8.5-10.1); CO2 26 mmol/L (21-32); CREATININE 0.6 mg/dL (0.55-1.02); GLUCOSE,RANDOM 136 mg/dL (74-106); SGOT/AST 229 U/L (15-37); TOT PROT 4.6 g/dl (6.4-8.2)
[2016-10-02 06:31] LABS: ALK PHOS 128 U/L (45-117)
[2016-10-02 06:37] LABS: SGPT/ALT 471 U/L (12-78)
--- NOTE | 2016-10-02 07:25 | PN ---
Physical Exam: SUBJECTIVE: Patient seen and examined OBJECTIVE: Vital Signs Period Temp Pulse Resp BP Sys/Paz Pulse Ox Last 24 Hr 97.5 F-100.2 F 69-92 13-28 75-138/53-79 96-100 GENERAL: The patient is awake, alert, and fully oriented, in no acute distress. HEAD: Normal with no signs of trauma. EYES: PERRL, extraocular movements intact, sclera anicteric, conjunctiva clear. No ptosis. ENT: Ears normal, nares patent, oropharynx clear without exudates, moist mucous membranes. NECK: Trachea midline, full range of motion, supple. LUNGS: Breath sounds equal, clear to auscultation bilaterally, no wheezes, no crackles, no accessory muscle use. HEART: Regular rate and rhythm, S1, S2 without murmur, rub or gallop. ABDOMEN: Soft, nontender, nondistended, normoactive bowel sounds, no guarding, no rebound, no hepatosplenomegaly, no masses. EXTREMITIES: 2+ pulses, warm, well-perfused, no edema. NEUROLOGICAL: Cranial nerves II through XII grossly intact. Normal speech, gait not observed. PSYCH: Normal mood, normal affect. SKIN: Warm, dry, normal turgor, no rashes or lesions noted Laboratory Results - last 24 hr 10/01/16 10/01/16 10/01/16 02:24 05:20 05:20 WBC RBC Hgb Hct MCV MCHC RDW Plt Count MPV Neutrophils % 73.0 Lymphocytes % 10.0 D Monocytes % 5.0 Band Neutrophils 12.0 H D Platelet Estimate Slt decreased Platelet Comment No clotting detected Polychromasia 1+ Poikilocytosis 1+ Sodium 150 H Potassium 3.0 L D Chloride 117 H Carbon Dioxide 19 L Anion Gap 14 BUN 30 H D Creatinine 0.6 D Creat Clearance w eGFR > 60 POC Glucometer [phone] Random Glucose 169 H Calcium 7.4 L Phosphorus Magnesium Total Bilirubin Direct Bilirubin GGT AST ALT Alkaline Phosphatase Total Protein Albumin TSH 1.48 D 10/01/16 10/01/16 10/01/16 05:24 05:49 10:08 WBC RBC Hgb Hct MCV MCHC RDW Plt Count MPV Neutrophils % Lymphocytes % Monocytes % Band Neutrophils Platelet Estimate Platelet Comment Polychromasia Poikilocytosis Sodium Cancelled Potassium Cancelled Chloride Cancelled Carbon Dioxide Cancelled Anion Gap Cancelled BUN Cancelled Creatinine Cancelled Creat Clearance w eGFR Cancelled POC Glucometer 202.96655 101.42951 Random Glucose Cancelled Calcium Cancelled Phosphorus Magnesium Total Bilirubin Cancelled Direct Bilirubin Cancelled GGT AST Cancelled ALT Cancelled Alkaline Phosphatase Cancelled Total Protein Cancelled Albumin Cancelled [facility] 10/01/16 10/01/16 10/02/16 14:55 21:37 03:07 WBC RBC Hgb Hct MCV MCHC RDW Plt Count MPV Neutrophils % Lymphocytes % Monocytes % Band Neutrophils Platelet Estimate Platelet Comment Polychromasia Poikilocytosis Sodium Potassium Chloride Carbon Dioxide Anion Gap BUN Creatinine Creat Clearance w eGFR POC Glucometer 120.45563 148.67200 196.90414 Random Glucose Calcium Phosphorus Magnesium Total Bilirubin Direct Bilirubin GGT AST ALT Alkaline Phosphatase Total Protein Albumin [facility] 10/02/16 10/02/16 10/02/16 05:05 05:05 05:05 WBC 12.5 H RBC 4.18 Hgb 11.4 D Hct 35.5 D MCV 84.9 MCHC 32.1 RDW 15.3 Plt Count 89 L D MPV 9.5 Neutrophils % Lymphocytes % Monocytes % Band Neutrophils Platelet Estimate Platelet Comment Polychromasia Poikilocytosis Sodium 148 H Potassium 3.6 Chloride 114 H Carbon Dioxide 26 D Anion Gap 8 BUN 32 H Creatinine 0.6 Creat Clearance w eGFR > 60 POC Glucometer Random Glucose 136 H Calcium 7.1 L Phosphorus 2.0 L D Magnesium 2.2 D Total Bilirubin 0.3 D Direct Bilirubin GGT 188 H D AST 229 H D ALT 471 H Alkaline Phosphatase 128 H Total Protein 4.6 L Albumin 2.0 L TSH Active Medications Generic Name Dose Route Start Last Admin Trade Name Freq PRN Reason Stop Dose Admin Ascorbic Acid 500 mg 09/30/16 22:00 10/01/16 21:10 Vitamin C - PO Not Given BID [facility]A Atorvastatin Calcium 40 mg 09/30/16 22:00 10/01/16 21:10 Lipitor - PO Not Given HS AN[facility]IETA Chlorhexidine Gluconate 1 applic 09/30/16 22:00 10/01/16 21:11 Hibiclens For Decolonization - TP 1 applic HS [facility]ETA Administration Heparin Sodium (Porcine) 5,000 unit 09/30/16 22:00 10/01/16 21:09 Heparin - SQ 5,000 unit BID [facility] Administration Linezolid 300 mls @ 300 mls/hr 09/30/16 12:45 10/01/16 21:09 Zyvox 600 Mg Premix Bag (Restricted To Id) - IVPB 300 mls/hr BID [facility] Administration Dextrose/Sodium Chloride 1,000 mls @ 75 mls/hr 09/30/16 21:30 10/01/16 21:11 D5-1/2ns - IV 75 mls/hr ASDIR AN[facility]IETA Administration Meropenem 1 gm/ Dextrose 100 mls @ 100 mls/hr 10/01/16 10:00 10/01/16 21:16 IVPB 100 mls/hr BID [facility] Administration Protocol Morphine Sulfate 100 mg/ 100 mls @ 2 mls/hr 10/01/16 10:15 10/01/16 10:16 Sodium Chloride IVPB 2 mls/hr TITR [facility] Administration Protocol 2 MG/HR Insulin Aspart 1 vial 10/01/16 02:00 10/02/16 06:26 Novolog Vial Sliding Scale - SQ 2 units Q4HPO [facility] Administration Protocol Levetiracetam 500 mg 09/30/16 22:00 10/01/16 21:09 Keppra Injection - IVPB 500 mg BID [facility] Administration Magnesium Oxide 800 mg 09/30/16 22:00 10/02/16 03:09 Mag-Ox - PO Not Given BID [facility] Morphine Sulfate 2 mg 10/01/16 09:43 10/01/16 09:45 Morphine Injection - IVPUSH 2 mg Q3H PRN Administration PAIN Multivitamins/Minerals/Vitamin C 1 tab 10/01/16 10:00 10/01/16 09:46 Tab-A-Vit - PO Not Given DAILY [facility] Mupirocin 1 applic 09/30/16 22:00 10/01/16 21:09 Bactroban Ointment (For Decolonization) - NS 10/05/16 21:59 1 applic BID [facility] Administration Nystatin 1 applic 10/01/16 10:00 10/01/16 09:47 Nystop Powder - TP 1 appful DAILY [facility] Administration Pantoprazole Sodium 40 mg 10/01/16 10:00 10/01/16 09:46 Protonix 40mg Ivpb (Pre-Docked) IVPB 40 mg DAILY [facility] Administration Zinc Sulfate 220 mg 10/01/16 10:00 10/01/16 09:47 Orazinc - PO Not Given DAILY [facility] ASSESSMENT/PLAN:
--- NOTE | 2016-10-02 07:52 | PN ---
Progress Note (short form) - Note Progress Note: ID Meropenem Linezolid day 2 therapy Doing better Temps down Originally 106! Off pressors Selected Entries 10/02/16 06:00 Temperature 97.6 F Pulse Rate 80 Respiratory 16 Rate Blood Pressure 115/79 Microbiology 09/30/16 11:30 Blood - Peripheral Venous Blood Culture - Preliminary NO GROWTH OBTAINED AFTER 24 HOURS, INCUBATION TO CONTINUE FOR 4 DAYS. 09/30/16 11:30 Blood - Peripheral Venous Blood Culture - Preliminary NO GROWTH OBTAINED AFTER 24 HOURS, INCUBATION TO CONTINUE FOR 4 DAYS. Laboratory Tests 09/30/16 10/01/16 10/02/16 11:30 05:20 05:05 WBC 14.7 H D 16.5 H 12.5 H Hgb 11.4 D Plt Count 89 L D Creat Clearance w eGFR GGT AST ALT Alkaline Phosphatase 10/02/16 05:05 WBC Hgb Plt Count Creat Clearance w eGFR > 60 GGT 188 H D AST 229 H D ALT 471 H Alkaline Phosphatase 128 H SONOGRAM unrevealing Assessment Sepsis syndrome urinary source Urine culture pending Shock liver (enzymes) Decubitus ulcer Plan Same antibiotic pending urine culture then svenate [place] Problem List - Problems (1) Sacral decubitus ulcer Code(s): L89.159 - PRESSURE ULCER OF SACRAL REGION, UNSPECIFIED STAGE Qualifiers: Pressure ulcer stage: unspecified pressure ulcer stage Qualified Code(s ): L89.159 - Pressure ulcer of sacral region, unspecified stage (2) Sepsis Code(s): A41.9 - SEPSIS, UNSPECIFIED ORGANISM Qualifiers: Sepsis type: sepsis due to unspecified organism Qualified Code(s): A41.9 - Sepsis, unspecified organism (3) UTI (urinary tract infection) due to urinary indwelling catheter Code(s): T83.511A - I/I REACT D/T INDWELLING URETHRAL CATHETER, INIT N39.0 - URINARY TRACT INFECTION, SITE NOT SPECIFIED (4) Elevated LFTs Code(s): R79.89 - OTHER SPECIFIED ABNORMAL FINDINGS OF BLOOD CHEMISTRY
[2016-10-02] MEDS ORDERED: PT OWN MED DRAWER 7, Y5N ONE (07:59)
[2016-10-02] MEDS: PANTOPRAZOLE SODIUM 40 MG/100 ML PRE-DOCKED IVPB SCH (09:03)
[2016-10-02] MEDS: LINEZOLID 600 MG PREMIX BAG 300 ML IVPB SCH ×2 (09:04→21:10)
[2016-10-02] MEDS ORDERED: DEXTROSE 5%-0.45% SALINE 1,000 ML IV SCH ×2 (09:05→18:56)
[2016-10-02] MEDS: MUPIROCIN 2% TOPICAL OINTMENT FOR DECOLONIZATION NS SCH (09:06)
[2016-10-02] MEDS: levETIRAcetam 500 MG/5 ML INJECTION VIAL IVPB SCH ×2 (09:07→21:09)
[2016-10-02] MEDS: HEPARIN NA (PORCINE) 5,000 UNITS/ML 1ML VIAL SQ SCH ×2 (09:07→21:09)
[2016-10-02] MEDS: NYSTATIN POWDER 100,000 UNITS/GM - 15 GM TOPICAL POWDER TP SCH (10:00)
--- NOTE | 2016-10-02 10:57 | PN ---
Progress Note, Physician History of Present Illness: Pt. is in ICU, on BIPAP, unresponsive to voice and verbal stimuli ( pt received Ativan IVP, is on Morphine drip) Case was d/w ICU attending and pt.'s nurse at bedside. - Current Medication List Current Medications: Active Medications Ascorbic Acid (Vitamin C -) 500 mg PO BID [facility] Last Admin: 10/01/16 21:10 Dose: Not Given Atorvastatin Calcium (Lipitor -) 40 mg PO HS [facility] Last Admin: 10/01/16 21:10 Dose: Not Given Chlorhexidine Gluconate (Hibiclens For Decolonization -) 1 applic TP HS [facility] Last Admin: 10/01/16 21:11 Dose: 1 applic Heparin Sodium (Porcine) (Heparin -) 5,000 unit SQ BID [facility] Last Admin: 10/02/16 09:07 Dose: 5,000 unit Linezolid (Zyvox 600 Mg Premix Bag (Restricted To Id) -) 300 mls @ 300 mls/hr IVPB BID [facility] Last Admin: 10/02/16 09:04 Dose: 300 mls/hr Meropenem 1 gm/ Dextrose 100 mls @ 100 mls/hr IVPB BID [facility] PRN Reason: Protocol Last Admin: 10/01/16 21:16 Dose: 100 mls/hr Morphine Sulfate 100 mg/ (Sodium Chloride) 100 mls @ 2 mls/hr IVPB TITR [facility]; 2 MG/HR PRN Reason: Protocol Last Admin: 10/01/16 10:16 Dose: 2 mls/hr Dextrose/Sodium Chloride (D5-1/2ns -) 1,000 mls @ 100 mls/hr IV ASDIR [facility] Insulin Aspart (Novolog Vial Sliding Scale -) 1 vial SQ Q4HPO [facility] PRN Reason: Protocol Last Admin: 10/02/16 06:26 Dose: 2 units Levetiracetam (Keppra Injection -) 500 mg IVPB BID [facility] Last Admin: 10/02/16 09:07 Dose: 500 mg Magnesium Oxide (Mag-Ox -) 800 mg PO BID [facility] Last Admin: 10/02/16 03:09 Dose: Not Given Morphine Sulfate (Morphine Injection -) 2 mg IVPUSH Q3H PRN PRN Reason: PAIN Last Admin: 10/01/16 09:45 Dose: 2 mg Multivitamins/Minerals/Vitamin C (Tab-A-Vit -) 1 tab PO DAILY [facility] Last Admin: 10/01/16 09:46 Dose: Not Given Mupirocin (Bactroban Ointment (For Decolonization) -) 1 applic NS BID [facility] Stop: 10/05/16 21:59 Last Admin: 10/02/16 09:06 Dose: 1 applic Nystatin (Nystop Powder -) 1 applic TP DAILY [facility] Last Admin: 10/01/16 09:47 Dose: 1 appful Pantoprazole Sodium (Protonix 40mg Ivpb (Pre-Docked)) 40 mg IVPB DAILY [facility] Last Admin: 10/02/16 09:03 Dose: 40 mg Zinc Sulfate (Orazinc -) 220 mg PO DAILY [facility] Last Admin: 10/01/16 09:47 Dose: Not Given - Objective Vital Signs: Vital Signs Temperature 97.6 F 10/02/16 06:00 Pulse Rate 72 10/02/16 08:00 Respiratory Rate 16 10/02/16 08:17 Blood Pressure 90/61 10/02/16 08:00 O2 Sat by Pulse Oximetry (%) 98 10/02/16 08:17 Constitutional: Yes: No Distress, Calm Cardiovascular: Yes: Regular Rate and Rhythm, S1, S2 Respiratory: Yes: Regular, Rhonchi (scattered bilat) Gastrointestinal: Yes: Normal Bowel Sounds, Soft. No: Tenderness Edema: No Labs: CBC, BMP 10/02/16 05:05 10/02/16 05:05 INR, PTT INR 1.23 (0.82-1.09) H 09/30/16 11:30 Problem List - Problems (1) Septic shock Assessment/Plan: IV abtx- per ID IVF Admitted to ICU ID consult and f/u appreciated CCM consult appreciated Pt is off pressor. Code(s): A41.9 - SEPSIS, UNSPECIFIED ORGANISM R65.21 - SEVERE SEPSIS WITH SEPTIC SHOCK (2) UTI (urinary tract infection) Assessment/Plan: IV abtx per ID- today urine looks better. Code(s): N39.0 - URINARY TRACT INFECTION, SITE NOT SPECIFIED Qualifiers: Urinary tract infection type: catheter-associated UTI Indwelling urinary catheter type: indwelling urethral catheter Encounter type: initial encounter Qualified Code(s): T83.511A - Infection and inflammatory reaction due to indwelling urethral catheter, initial encounter; N39.0 - Urinary tract infection, site not specified (3) Ulcer of sacral region, stage 4 Code(s): L89.154 - PRESSURE ULCER OF SACRAL REGION, STAGE 4 (4) Diabetes mellitus Assessment/Plan: BGM and Coverage only Code(s): E11.9 - TYPE 2 DIABETES MELLITUS WITHOUT COMPLICATIONS Qualifiers: Diabetes mellitus type: other specified (including FERCHO) (5) Endocarditis Assessment/Plan: Hx/o endocarditis Code(s): I38 - ENDOCARDITIS, VALVE UNSPECIFIED (6) Seizure Assessment/Plan: on IV Keppra. Pt. is very anxious at baseline, with and tremor at baseline Code(s): R56.9 - UNSPECIFIED CONVULSIONS Qualifiers: Convulsion type: unspecified Qualified Code(s): R56.9 - Unspecified convulsions (7) Elevated liver enzymes Assessment/Plan: Probable secondary to sepsis. Improving. To monitor LFTs Code(s): R74.8 - ABNORMAL LEVELS OF OTHER SERUM ENZYMES (8) Acute renal insufficiency Code(s): N28.9 - DISORDER OF KIDNEY AND URETER, UNSPECIFIED (9) Acute respiratory failure Assessment/Plan: Improving, on BIPAP To monitor Code(s): J96.00 - ACUTE RESPIRATORY FAILURE, UNSP W HYPOXIA OR HYPERCAPNIA (10) Hypokalemia Assessment/Plan: Repleted K, corrected, Mg level w/i NL Code(s): E87.6 - HYPOKALEMIA Assessment/Plan AM labs Time spent for managing pt's care: over 45 min
[2016-10-02] MEDS: MEROPENEM 1 GM in DEXTROSE 5%-WATER - 100 ML IVPB SCH ×2 (11:00→21:09)
[2016-10-02] MEDS ORDERED: morphine CARPU-JECT 2 MG/1 ML DISP.SYRIN IVPUSH PRN ×3 (13:00→18:56)
--- NOTE | 2016-10-02 13:32 | PN ---
Physical Exam: SUBJECTIVE: Patient seen and examined, patient lying in bed, non verbal on BIPAP , casas cath in situ. on iv fluid 75 ml/hr off dopamin on morphine drip, OBJECTIVE: Vital Signs Period Temp Pulse Resp BP Sys/Paz Pulse Ox Last 24 Hr 97.5 F-99.2 F 69-80 13-18 80-115/53-79 96-100 GENERAL: lying in bed on bipap support HEAD: Normal with no signs of trauma. NECK: Trachea midline, LUNGS: b/l air entry present, diffuse ronchi. HEART: s1s2 normal ABDOMEN: Soft, nontender, nondistended, normoactive bowel sounds, no guarding, no rebound, EXTREMITIES: 2+ pulses, b/l lower extremities warm to touch, no edema. NEUROLOGICAL: unobtainable SKIN: Warm, dry, Laboratory Results - last 24 hr 10/01/16 10/01/16 10/01/16 02:24 05:24 10:08 WBC RBC Hgb Hct MCV MCHC RDW Plt Count MPV Sodium Potassium Chloride Carbon Dioxide Anion Gap BUN Creatinine Creat Clearance w eGFR POC Glucometer 261.68938 202.47771 101.38617 Random Glucose Calcium Phosphorus Magnesium Total Bilirubin GGT AST ALT Alkaline Phosphatase Total Protein Albumin 10/01/16 10/01/16 10/02/16 14:55 21:37 03:07 WBC RBC Hgb Hct MCV MCHC RDW Plt Count MPV Sodium Potassium Chloride Carbon Dioxide Anion Gap BUN Creatinine Creat Clearance w eGFR POC Glucometer 120.85462 148.44411 196.19119 Random Glucose Calcium Phosphorus Magnesium Total Bilirubin GGT AST ALT Alkaline Phosphatase Total Protein Albumin 10/02/16 10/02/16 10/02/16 05:05 05:05 05:05 WBC 12.5 H RBC 4.18 Hgb 11.4 D Hct 35.5 D MCV 84.9 MCHC 32.1 RDW 15.3 Plt Count 89 L D MPV 9.5 Sodium 148 H Potassium 3.6 Chloride 114 H Carbon Dioxide 26 D Anion Gap 8 BUN 32 H Creatinine 0.6 Creat Clearance w eGFR > 60 POC Glucometer Random Glucose 136 H Calcium 7.1 L Phosphorus 2.0 L D Magnesium 2.2 D Total Bilirubin 0.3 D GGT 188 H D AST 229 H D ALT 471 H Alkaline Phosphatase 128 H Total Protein 4.6 L Albumin 2.0 L 10/02/16 06:18 WBC RBC Hgb Hct MCV MCHC RDW Plt Count MPV Sodium Potassium Chloride Carbon Dioxide Anion Gap BUN Creatinine Creat Clearance w eGFR POC Glucometer 167.62072 Random Glucose Calcium Phosphorus Magnesium Total Bilirubin GGT AST ALT Alkaline Phosphatase Total Protein Albumin Active Medications Generic Name Dose Route Start Last Admin Trade Name Freq PRN Reason Stop Dose Admin Ascorbic Acid 500 mg 09/30/16 22:00 10/01/16 21:10 Vitamin C - PO Not Given BID [facility] Atorvastatin Calcium 40 mg 09/30/16 22:00 10/01/16 21:10 Lipitor - PO Not Given HS [facility] Chlorhexidine Gluconate 1 applic 09/30/16 22:00 10/01/16 21:11 Hibiclens For Decolonization - TP 1 applic HS [facility] Administration Heparin Sodium (Porcine) 5,000 unit 09/30/16 22:00 10/02/16 09:07 Heparin - SQ 5,000 unit BID [facility] Administration Linezolid 300 mls @ 300 mls/hr 09/30/16 12:45 10/02/16 09:04 Zyvox 600 Mg Premix Bag (Restricted To Id) - IVPB 300 mls/hr BID [facility] Administration Meropenem 1 gm/ Dextrose 100 mls @ 100 mls/hr 10/01/16 10:00 10/01/16 21:16 IVPB 100 mls/hr BID [facility] Administration Protocol Dextrose/Sodium Chloride 1,000 mls @ 100 mls/hr 10/02/16 09:05 D5-1/2ns - IV ASDIR [facility] Insulin Aspart 1 vial 10/01/16 02:00 10/02/16 06:26 Novolog Vial Sliding Scale - SQ 2 units Q4HPO [facility] Administration Protocol Levetiracetam 500 mg 09/30/16 22:00 10/02/16 09:07 Keppra Injection - IVPB 500 mg BID [facility] Administration Magnesium Oxide 800 mg 09/30/16 22:00 10/02/16 03:09 Mag-Ox - PO Not Given BID [facility] Morphine Sulfate 2 mg 10/01/16 09:43 10/01/16 09:45 Morphine Injection - IVPUSH 2 mg Q3H PRN Administration PAIN Morphine Sulfate 2 mg 10/02/16 13:00 Morphine Injection - IVPUSH Q3H PRN PAIN Multivitamins/Minerals/Vitamin C 1 tab 10/01/16 10:00 10/01/16 09:46 Tab-A-Vit - PO Not Given DAILY [facility] Mupirocin 1 applic 09/30/16 22:00 10/02/16 09:06 Bactroban Ointment (For Decolonization) - NS 10/05/16 21:59 1 applic BID [facility] Administration Nystatin 1 applic 10/01/16 10:00 10/01/16 09:47 Nystop Powder - TP 1 appful DAILY [facility] Administration Pantoprazole Sodium 40 mg 10/01/16 10:00 10/02/16 09:03 Protonix 40mg Ivpb (Pre-Docked) IVPB 40 mg DAILY [facility] Administration Zinc Sulfate 220 mg 10/01/16 10:00 10/01/16 09:47 Orazinc - PO Not Given DAILY [facility] Microbiology 09/30/16 10:58 Decubiti Gram Stain - Final 09/30/16 10:58 Decubiti Wound Culture - Preliminary Presumptive Mssa (Pbp2a Neg) Diphtheroid/Corynebacterium 09/30/16 11:30 Urine - Urine - Catheterized Urine Culture - Preliminary Non Lactose Fermenting Gnb Group D Strep Or Entero Coccus 09/30/16 11:30 Blood - Peripheral Venous Blood Culture - Preliminary NO GROWTH OBTAINED AFTER 48 HOURS, INCUBATION TO CONTINUE FOR 3 DAYS. 09/30/16 11:30 Blood - Peripheral Venous Blood Culture - Preliminary NO GROWTH OBTAINED AFTER 48 HOURS, INCUBATION TO CONTINUE FOR 3 DAYS. ASSESSMENT/PLAN: (1) Septic shock ( could be due to bed bed sore and uti) on iv antibiotics meropenem and linezolid Iv fluid 100ml/hr monitor vitals monitor intake/ output follow b/c, urine culture (2) UTI (urinary tract infection) u/c non lactose fermenting gnb, group d strep on Iv antibiotics meropenem and linezolid (3) Ulcer of sacral region, stage 4 regular dressing change position every 2 hour avoid pressure on sacral area (4) Diabetes mellitus on BGM monitoring on sliding scale (5) Seizure on IV Keppra. (6) Elevated liver enzymes Probable secondary to sepsis. Improving. To monitor LFTs (7) Acute renal insufficiency improved probably secondary to shock (8) Acute respiratory failure improving change from BIPAP to ventuary mask 9 Hypernatremia free water deficit 1.5L increases IV fluid to 100ml/hr monitor serum Na Fluid D51/2ns increased to 100ml/hr electrolyte: monitor na, k dvt pro :on heparin gi pro on protonix Dispo: monitor on ventuary mask, if stable transfer [facility] surg Patient DNR, DNI Visit type - Emergency Visit Emergency Visit: Yes ED Registration Date: 09/30/16 Care time: The patient presented to the Emergency Department on the above date and was hospitalized for further evaluation of their emergent condition. - New Patient This patient is new to me today: Yes Date on this admission: 10/02/16 - Critical Care Critical Care patient: Yes Total Critical Care Time (in minutes): 45 Critical Care Statement: The care of this patient involved high complexity decision making to prevent further life threatening deterioration of the patient 's condition and/or to evalute & treat vital organ system(s) failure or risk of failure.
--- NOTE | 2016-10-02 15:14 | PN ---
Teaching Attending Note Name of Resident: Marco Antonio Madrid ATTENDING PHYSICIAN STATEMENT I saw and evaluated the patient. I reviewed the resident's note and discussed the case with the resident. I agree with the resident's findings and plan as documented. SUBJECTIVE: Patient seen and examined in the ICU. Lethargic on BiPAP. IV Morphine drip at 1 mg/hr. Currently off Dopamine. Intake & Output 09/29/16 09/30/16 10/01/16 10/02/16 23:59 23:59 23:59 23:59 Intake Total 3838 2606 1165 Output Total 3900 1500 400 Balance -62 1106 765 Weight 125 lb 6 oz 125 lb 6 oz 128 lb 11.999 oz Last Vital Signs Temp Pulse Resp BP Pulse Ox 97.6 F 70 16 90/61 98 10/02/16 06:00 10/02/16 09:35 10/02/16 08:17 10/02/16 08:00 10/02/16 13:58 Active Medications Ascorbic Acid (Vitamin C -) 500 mg PO BID [facility] Last Admin: 10/01/16 21:10 Dose: Not Given Atorvastatin Calcium (Lipitor -) 40 mg PO HS [facility] Last Admin: 10/01/16 21:10 Dose: Not Given Chlorhexidine Gluconate (Hibiclens For Decolonization -) 1 applic TP HS [facility] Last Admin: 10/01/16 21:11 Dose: 1 applic Heparin Sodium (Porcine) (Heparin -) 5,000 unit SQ BID [facility] Last Admin: 10/02/16 09:07 Dose: 5,000 unit Linezolid (Zyvox 600 Mg Premix Bag (Restricted To Id) -) 300 mls @ 300 mls/hr IVPB BID [facility] Last Admin: 10/02/16 09:04 Dose: 300 mls/hr Meropenem 1 gm/ Dextrose 100 mls @ 100 mls/hr IVPB BID [facility] PRN Reason: Protocol Last Admin: 10/01/16 21:16 Dose: 100 mls/hr Dextrose/Sodium Chloride (D5-1/2ns -) 1,000 mls @ 100 mls/hr IV ASDIR [facility] Insulin Aspart (Novolog Vial Sliding Scale -) 1 vial SQ Q4HPO [facility] PRN Reason: Protocol Last Admin: 10/02/16 06:26 Dose: 2 units Levetiracetam (Keppra Injection -) 500 mg IVPB BID [facility] Last Admin: 10/02/16 09:07 Dose: 500 mg Magnesium Oxide (Mag-Ox -) 800 mg PO BID [facility] Last Admin: 10/02/16 03:09 Dose: Not Given Morphine Sulfate (Morphine Injection -) 2 mg IVPUSH Q3H PRN PRN Reason: PAIN Last Admin: 10/01/16 09:45 Dose: 2 mg Morphine Sulfate (Morphine Injection -) 2 mg IVPUSH Q3H PRN PRN Reason: PAIN Multivitamins/Minerals/Vitamin C (Tab-A-Vit -) 1 tab PO DAILY [facility] Last Admin: 10/01/16 09:46 Dose: Not Given Mupirocin (Bactroban Ointment (For Decolonization) -) 1 applic NS BID [facility] Stop: 10/05/16 21:59 Last Admin: 10/02/16 09:06 Dose: 1 applic Nystatin (Nystop Powder -) 1 applic TP DAILY [facility] Last Admin: 10/01/16 09:47 Dose: 1 appful Pantoprazole Sodium (Protonix 40mg Ivpb (Pre-Docked)) 40 mg IVPB DAILY [facility] Last Admin: 10/02/16 09:03 Dose: 40 mg Zinc Sulfate (Orazinc -) 220 mg PO DAILY [facility] Last Admin: 10/01/16 09:47 Dose: Not Given General: Lethargic on NIPPV HEENT: (-) Icterus Pulm: Bilateral rhonchi and basilar crackles CV: S1, S2 tachy Abd: (+) BS, ND Ext: cool to touch Laboratory Results - last 24 hr 10/01/16 10/01/16 10/01/16 02:24 05:24 10:08 WBC RBC Hgb Hct MCV MCHC RDW Plt Count MPV Sodium Potassium Chloride Carbon Dioxide Anion Gap BUN Creatinine Creat Clearance w eGFR POC Glucometer 261.35545 202.06437 101.25088 Random Glucose Calcium Phosphorus Magnesium Total Bilirubin GGT AST ALT Alkaline Phosphatase Total Protein Albumin 10/01/16 10/01/16 10/02/16 14:55 21:37 03:07 WBC RBC Hgb Hct MCV MCHC RDW Plt Count MPV Sodium Potassium Chloride Carbon Dioxide Anion Gap BUN Creatinine Creat Clearance w eGFR POC Glucometer 120.16579 148.84521 196.75771 Random Glucose Calcium Phosphorus Magnesium Total Bilirubin GGT AST ALT Alkaline Phosphatase Total Protein Albumin 10/02/16 10/02/16 10/02/16 05:05 05:05 05:05 WBC 12.5 H RBC 4.18 Hgb 11.4 D Hct 35.5 D MCV 84.9 MCHC 32.1 RDW 15.3 Plt Count 89 L D MPV 9.5 Sodium 148 H Potassium 3.6 Chloride 114 H Carbon Dioxide 26 D Anion Gap 8 BUN 32 H Creatinine 0.6 Creat Clearance w eGFR > 60 POC Glucometer Random Glucose 136 H Calcium 7.1 L Phosphorus 2.0 L D Magnesium 2.2 D Total Bilirubin 0.3 D GGT 188 H D AST 229 H D ALT 471 H Alkaline Phosphatase 128 H Total Protein 4.6 L Albumin 2.0 L 10/02/16 06:18 WBC RBC Hgb Hct MCV MCHC RDW Plt Count MPV Sodium Potassium Chloride Carbon Dioxide Anion Gap BUN Creatinine Creat Clearance w eGFR POC Glucometer 167.71423 Random Glucose Calcium Phosphorus Magnesium Total Bilirubin GGT AST ALT Alkaline Phosphatase Total Protein Albumin Problem List - Problems (1) Sacral decubitus ulcer Code(s): L89.159 - PRESSURE ULCER OF SACRAL REGION, UNSPECIFIED STAGE Qualifiers: Pressure ulcer stage: unspecified pressure ulcer stage Qualified Code(s ): L89.159 - Pressure ulcer of sacral region, unspecified stage (2) Septic shock Code(s): A41.9 - SEPSIS, UNSPECIFIED ORGANISM R65.21 - SEVERE SEPSIS WITH SEPTIC SHOCK (3) UTI (urinary tract infection) due to urinary indwelling catheter Code(s): T83.511A - I/I REACT D/T INDWELLING URETHRAL CATHETER, INIT N39.0 - URINARY TRACT INFECTION, SITE NOT SPECIFIED (4) Diabetes mellitus Code(s): E11.9 - TYPE 2 DIABETES MELLITUS WITHOUT COMPLICATIONS Qualifiers: Diabetes mellitus type: other specified (including FERCHO) (5) Fever Code(s): R50.9 - FEVER, UNSPECIFIED (6) Seizure Code(s): R56.9 - UNSPECIFIED CONVULSIONS Qualifiers: Convulsion type: unspecified Qualified Code(s): R56.9 - Unspecified convulsions (7) Transaminitis Code(s): R74.0 - NONSPEC ELEV OF LEVELS OF TRANSAMNS & LACTIC ACID DEHYDRGNSE (8) Ulcer of sacral region, stage 4 Code(s): L89.154 - PRESSURE ULCER OF SACRAL REGION, STAGE 4 (9) OZZIE (acute kidney injury) Code(s): N17.9 - ACUTE KIDNEY FAILURE, UNSPECIFIED Assessment/Plan Trial of VM O2 Aspiration precautions MS for comfort measures IVF ABX per ID Local wound care Keppra Atbeatriz prn for seizure DVT and GI prophylaxis DNR/DNI no escalation of aggressive measures Dr Naidu CCTime 35"
[2016-10-02] MEDS: ZINC SULFATE 220 MG CAPSULE (FP) PO SCH (16:11)
[2016-10-02] MEDS: MULTIVITAMINS (DAILY MVI) TABLET (FP) PO SCH (16:12)
[2016-10-02] MEDS: ASCORBIC ACID 500 MG TABLET (FP) PO SCH ×2 (16:12→21:10)
[2016-10-02] MEDS: ATORVASTATIN CA 40 MG TABLET (FP) PO SCH (21:09)
[2016-10-02] MEDS ORDERED: INSULIN (NOVOLOG) ASPART 100 UNITS/ML 10ML VIAL ONE (21:32)
[2016-10-02] MEDS ORDERED: MAGNESIUM OXIDE 400 MG TABLET (FP) PO SCH (22:00)
[2016-10-02] MEDS ORDERED: CHLORHEXIDINE GLUCONATE 4% CLEANSER FOR DECOLONIZATION TP SCH (22:00)
[2016-10-02] MEDS ORDERED: MUPIROCIN 2% TOPICAL OINTMENT FOR DECOLONIZATION NS SCH (22:00)
[2016-10-03] MEDS: INSULIN SLIDING SCALE (NOVOLOG) 1 VIAL SQ SCH ×6 (01:22→21:58)
[2016-10-03] MEDS: HEPARIN NA (PORCINE) 5,000 UNITS/ML 1ML VIAL SQ SCH ×2 (09:05→21:42)
[2016-10-03] MEDS: levETIRAcetam 500 MG/5 ML INJECTION VIAL IVPB SCH ×2 (09:06→21:42)
[2016-10-03] MEDS: ASCORBIC ACID 500 MG TABLET (FP) PO SCH ×2 (09:07→21:38)
[2016-10-03] MEDS: ZINC SULFATE 220 MG CAPSULE (FP) PO SCH (09:07)
[2016-10-03] MEDS: MULTIVITAMINS (DAILY MVI) TABLET (FP) PO SCH (09:07)
[2016-10-03 09:12] LABS: BASOPHIL 0.3 % (0-2.0); EOSINOPHIL 0.7 % (0-4.5); MCHC 31.4 g/dl (32.0-36.0); MEAN CELL VOLUME 85.9 fl (80-96); MEAN PLT VOLUME 9.4 fl (7.5-11.1); NEUTROPHILS 92.5 % (42.8-82.8); PLATELET COUNT 71 K/MM3 (134-434); RDW 14.4 % (11.6-15.6); WHITE BLOOD COUNT 9.5 K/mm3 (4.0-10.0)
[2016-10-03 10:03] LABS: ALBUMIN 1.9 g/dl (3.4-5.0); ALK PHOS 133 U/L (45-117); ANION GAP 11 (8-16); BILIRUBIN,TOTAL 0.4 mg/dL (0.2-1.0); CALCIUM 7.1 mg/dL (8.5-10.1); CO2 26 mmol/L (21-32); CREATININE 0.4 mg/dL (0.55-1.02); GLUCOSE,RANDOM 219 mg/dL (74-106); SGOT/AST 58 U/L (15-37); SGPT/ALT 282 U/L (12-78); TOT PROT 4.4 g/dl (6.4-8.2)
--- NOTE | 2016-10-03 10:43 | PN ---
Progress Note, Physician History of Present Illness: Pt. was transferred to the floor form ICU, off BIPAP. - Current Medication List Current Medications: Active Medications Ascorbic Acid (Vitamin C -) 500 mg PO BID [facility] Last Admin: 10/03/16 09:07 Dose: Not Given Atorvastatin Calcium (Lipitor -) 40 mg PO HS [facility] Last Admin: 10/02/16 21:09 Dose: Not Given Heparin Sodium (Porcine) (Heparin -) 5,000 unit SQ BID [facility] Last Admin: 10/03/16 09:05 Dose: 5,000 unit Linezolid (Zyvox 600 Mg Premix Bag (Restricted To Id) -) 300 mls @ 300 mls/hr IVPB BID [facility] Last Admin: 10/02/16 21:10 Dose: 300 mls/hr Meropenem 1 gm/ Dextrose 100 mls @ 200 mls/hr IVPB BID [facility] PRN Reason: Protocol Last Admin: 10/02/16 21:09 Dose: 200 mls/hr Dextrose/Sodium Chloride (D5-1/2ns -) 1,000 mls @ 50 mls/hr IV ASDIR [facility] Insulin Aspart (Novolog Vial Sliding Scale -) 1 vial SQ Q4HPO [facility] PRN Reason: Protocol Last Admin: 10/03/16 06:27 Dose: 2 units Levetiracetam (Keppra Injection -) 500 mg IVPB BID [facility] Last Admin: 10/03/16 09:06 Dose: 500 mg Magnesium Oxide (Mag-Ox -) 800 mg PO BID [facility] Morphine Sulfate (Morphine Injection -) 2 mg IVPUSH Q3H PRN PRN Reason: PAIN Multivitamins/Minerals/Vitamin C (Tab-A-Vit -) 1 tab PO DAILY [facility] Last Admin: 10/03/16 09:07 Dose: Not Given Nystatin (Nystop Powder -) 1 applic TP DAILY [facility] Pantoprazole Sodium (Protonix 40mg Ivpb (Pre-Docked)) 40 mg IVPB DAILY [facility] Zinc Sulfate (Orazinc -) 220 mg PO DAILY [facility] Last Admin: 10/03/16 09:07 Dose: Not Given - Objective Vital Signs: Vital Signs Temperature 98.6 F 10/03/16 06:39 Pulse Rate 77 10/03/16 06:39 Respiratory Rate 20 10/03/16 06:39 Blood Pressure 151/71 10/03/16 06:39 O2 Sat by Pulse Oximetry (%) 95 10/02/16 20:24 Constitutional: Yes: No Distress, Calm Cardiovascular: Yes: Regular Rate and Rhythm, S1, S2 Respiratory: Yes: Regular, Other (coarse BS bilat. throughout) Gastrointestinal: Yes: Normal Bowel Sounds, Soft, Tenderness Edema: No Neurological: Yes: Alert Labs: CBC, BMP 10/03/16 08:35 10/03/16 08:35 INR, PTT INR 1.23 (0.82-1.09) H 09/30/16 11:30 Problem List - Problems (1) Septic shock Assessment/Plan: IV abtx- per ID IVF Admitted to ICU, now on regular floor ID consult and f/u appreciated CCM consult appreciated Pt is off pressor. Code(s): A41.9 - SEPSIS, UNSPECIFIED ORGANISM R65.21 - SEVERE SEPSIS WITH SEPTIC SHOCK (2) UTI (urinary tract infection) Assessment/Plan: IV abtx per ID. Code(s): N39.0 - URINARY TRACT INFECTION, SITE NOT SPECIFIED Qualifiers: Urinary tract infection type: catheter-associated UTI Indwelling urinary catheter type: indwelling urethral catheter Encounter type: initial encounter Qualified Code(s): T83.511A - Infection and inflammatory reaction due to indwelling urethral catheter, initial encounter; N39.0 - Urinary tract infection, site not specified (3) Ulcer of sacral region, stage 4 Code(s): L89.154 - PRESSURE ULCER OF SACRAL REGION, STAGE 4 (4) Diabetes mellitus Assessment/Plan: BGM and Coverage only Code(s): E11.9 - TYPE 2 DIABETES MELLITUS WITHOUT COMPLICATIONS Qualifiers: Diabetes mellitus type: other specified (including FERCHO) (5) Endocarditis Code(s): I38 - ENDOCARDITIS, VALVE UNSPECIFIED (6) Seizure Assessment/Plan: on IV Keppra. Pt. is very anxious at baseline, with and tremor at baseline Code(s): R56.9 - UNSPECIFIED CONVULSIONS Qualifiers: Convulsion type: unspecified Qualified Code(s): R56.9 - Unspecified convulsions (7) Elevated liver enzymes Assessment/Plan: Probable secondary to sepsis. Improving. To monitor LFTs Code(s): R74.8 - ABNORMAL LEVELS OF OTHER SERUM ENZYMES (8) Acute renal insufficiency Code(s): N28.9 - DISORDER OF KIDNEY AND URETER, UNSPECIFIED (9) Acute respiratory failure Assessment/Plan: Improving, off BIPAP To monitor Code(s): J96.00 - ACUTE RESPIRATORY FAILURE, UNSP W HYPOXIA OR HYPERCAPNIA (10) Hypokalemia Assessment/Plan: Repleted K, corrected. Mg level w/i NL. Today K pending Code(s): E87.6 - HYPOKALEMIA Assessment/Plan AM labs.
[2016-10-03 10:50] LABS: PHOSPHOROUS 0.8 mg/dL (2.5-4.9)
[2016-10-03] MEDS ORDERED: INSULIN (NOVOLOG) ASPART 100 UNITS/ML 10ML VIAL ONE ×2 (10:52→17:09)
[2016-10-03] MEDS: PANTOPRAZOLE SODIUM 40 MG/100 ML PRE-DOCKED IVPB SCH (10:55)
[2016-10-03] MEDS: DEXTROSE 5%-0.45% SALINE 1,000 ML IV SCH (10:56)
[2016-10-03] MEDS: NYSTATIN POWDER 100,000 UNITS/GM - 15 GM TOPICAL POWDER TP SCH (11:04)
--- NOTE | 2016-10-03 11:22 | PN ---
Progress Note (short form) - Note Progress Note: PULMONARY No fevers recorded. Appears relatively comfortable. Last Vital Signs Temp Pulse Resp BP Pulse Ox 98.6 F 77 20 151/71 95 10/03/16 06:39 10/03/16 06:39 10/03/16 06:39 10/03/16 06:39 10/02/16 20:24 Gen: lethargic but arousable Heart: RRR Lung: scattered rhonchi Abd: soft, nontender Ext: trace edema CBC, BMP 10/03/16 08:35 10/03/16 08:35 Active Medications Ascorbic Acid (Vitamin C -) 500 mg PO BID [facility] Last Admin: 10/03/16 09:07 Dose: Not Given Atorvastatin Calcium (Lipitor -) 40 mg PO HS [facility] Last Admin: 10/02/16 21:09 Dose: Not Given Heparin Sodium (Porcine) (Heparin -) 5,000 unit SQ BID [facility] Last Admin: 10/03/16 09:05 Dose: 5,000 unit Linezolid (Zyvox 600 Mg Premix Bag (Restricted To Id) -) 300 mls @ 300 mls/hr IVPB BID [facility] Last Admin: 10/02/16 21:10 Dose: 300 mls/hr Meropenem 1 gm/ Dextrose 100 mls @ 200 mls/hr IVPB BID [facility] PRN Reason: Protocol Last Admin: 10/02/16 21:09 Dose: 200 mls/hr Dextrose/Sodium Chloride (D5-1/2ns -) 1,000 mls @ 50 mls/hr IV ASDIR [facility] Last Admin: 10/03/16 10:56 Dose: 50 mls/hr Insulin Aspart (Novolog Vial Sliding Scale -) 1 vial SQ Q4HPO [facility] PRN Reason: Protocol Last Admin: 10/03/16 11:00 Dose: 2 units Levetiracetam (Keppra Injection -) 500 mg IVPB BID [facility] Last Admin: 10/03/16 09:06 Dose: 500 mg Magnesium Oxide (Mag-Ox -) 800 mg PO BID [facility] Morphine Sulfate (Morphine Injection -) 2 mg IVPUSH Q3H PRN PRN Reason: PAIN Multivitamins/Minerals/Vitamin C (Tab-A-Vit -) 1 tab PO DAILY [facility] Last Admin: 10/03/16 09:07 Dose: Not Given Nystatin (Nystop Powder -) 1 applic TP DAILY [facility] Last Admin: 10/03/16 11:04 Dose: 1 applic Pantoprazole Sodium (Protonix 40mg Ivpb (Pre-Docked)) 40 mg IVPB DAILY [facility] Last Admin: 10/03/16 10:55 Dose: 40 mg Zinc Sulfate (Orazinc -) 220 mg PO DAILY [facility] Last Admin: 10/03/16 09:07 Dose: Not Given A/P UTI s/p Septic Shock Sacral Decubitus Ulcer s/p Acute Respiratory Failure Seizure Disorder DM - continue antibiotics - f/u cultures - replete lytes - wound care - morphine for comfort - DVT prophylaxis
[2016-10-03] MEDS ORDERED: POTASSIUM CHLORIDE 40 MEQ/30 ML UNIT DOSE CUP PO ONE (11:45)
[2016-10-03] MEDS: MEROPENEM 1 GM in DEXTROSE 5%-WATER - 100 ML IVPB SCH (11:56)
[2016-10-03] MEDS ORDERED: POTASSIUM PHOSPHATE 30 MM in DEXTROSE 5%-WATER - 500 ML IVPB ONE (12:00)
[2016-10-03] MEDS: LINEZOLID 600 MG PREMIX BAG 300 ML IVPB SCH (12:38)
[2016-10-03] MEDS: KCL 10 MEQ IVPB 100 ML IVPB SCH ×2 (14:52→16:00)
--- NOTE | 2016-10-03 16:30 | PN ---
Progress Note (short form) - Note Progress Note: afebrile Vital Signs Period Temp Pulse Resp BP Sys/Paz Pulse Ox Last 24 Hr 97.2 F-98.7 F 68-88 16-20 98-151/48-71 95-97 cor-rrr lungs decreased bs at bases abd soft,nt ext no edema CBC, BMP 10/03/16 08:35 10/03/16 08:35 Microbiology 09/30/16 11:30 Urine - Urine - Catheterized Urine Culture - Final Proteus Mirabilus - Esbl Produ Enterococcus Faecalis 09/30/16 10:58 Decubiti Gram Stain - Final 09/30/16 10:58 Decubiti Wound Culture - Preliminary Presumptive Mssa (Pbp2a Neg) Diphtheroid/Corynebacterium 09/30/16 11:30 Blood - Peripheral Venous Blood Culture - Preliminary NO GROWTH OBTAINED AFTER 72 HOURS, INCUBATION TO CONTINUE FOR 2 DAYS. 09/30/16 11:30 Blood - Peripheral Venous Blood Culture - Preliminary NO GROWTH OBTAINED AFTER 72 HOURS, INCUBATION TO CONTINUE FOR 2 DAYS. Current Medications Ascorbic Acid (Vitamin C -) 500 mg PO BID [facility] Last Admin: 10/03/16 09:07 Dose: Not Given Atorvastatin Calcium (Lipitor -) 40 mg PO HS [facility] Last Admin: 10/02/16 21:09 Dose: Not Given Heparin Sodium (Porcine) (Heparin -) 5,000 unit SQ BID [facility] Last Admin: 10/03/16 09:05 Dose: 5,000 unit Linezolid (Zyvox 600 Mg Premix Bag (Restricted To Id) -) 300 mls @ 300 mls/hr IVPB BID [facility] Last Admin: 10/03/16 12:38 Dose: 300 mls/hr Meropenem 1 gm/ Dextrose 100 mls @ 200 mls/hr IVPB BID [facility] PRN Reason: Protocol Last Admin: 10/03/16 11:56 Dose: 200 mls/hr Dextrose/Sodium Chloride (D5-1/2ns -) 1,000 mls @ 50 mls/hr IV ASDIR [facility] Last Admin: 10/03/16 10:56 Dose: 50 mls/hr Potassium Phosphate 30 mm/ (Dextrose) 510 mls @ 85 mls/hr IVPB ONCE ONE Stop: 10/03/16 17:59 Insulin Aspart (Novolog Vial Sliding Scale -) 1 vial SQ Q4HPO [facility] PRN Reason: Protocol Last Admin: 10/03/16 14:27 Dose: Not Given Levetiracetam (Keppra Injection -) 500 mg IVPB BID [facility] Last Admin: 10/03/16 09:06 Dose: 500 mg Magnesium Oxide (Mag-Ox -) 800 mg PO BID [facility] Morphine Sulfate (Morphine Injection -) 2 mg IVPUSH Q3H PRN PRN Reason: PAIN Multivitamins/Minerals/Vitamin C (Tab-A-Vit -) 1 tab PO DAILY [facility] Last Admin: 10/03/16 09:07 Dose: Not Given Nystatin (Nystop Powder -) 1 applic TP DAILY [facility] Last Admin: 10/03/16 11:04 Dose: 1 applic Pantoprazole Sodium (Protonix 40mg Ivpb (Pre-Docked)) 40 mg IVPB DAILY [facility] Last Admin: 10/03/16 10:55 Dose: 40 mg Zinc Sulfate (Orazinc -) 220 mg PO DAILY [facility] Last Admin: 10/03/16 09:07 Dose: Not Given a/p s/p septic shock- off pressors transferred to floor source felt to be urine switch to ertapenem d/c zyvox and meropenem
[2016-10-03] MEDS ORDERED: DEXTROSE 50%-WATER - 25 GM/50 ML VIAL IVPB ONE (18:15)
[2016-10-03] MEDS: LACTOBACILLUS ACIDOPHILUS 1 EACH TAB (FP) PO SCH (21:37)
[2016-10-03] MEDS: ATORVASTATIN CA 40 MG TABLET (FP) PO SCH (21:37)
[2016-10-03] MEDS: AMPICILLIN NA/SULBACTAM NA 100 ML IVPB SCH (21:42)
[2016-10-04] MEDS: INSULIN SLIDING SCALE (NOVOLOG) 1 VIAL SQ SCH ×6 (01:18→21:42)
[2016-10-04] MEDS: AMPICILLIN NA/SULBACTAM NA 100 ML IVPB SCH ×4 (02:37→20:57)
[2016-10-04 08:32] LABS: MCH 27.3 pg (25.7-33.7); MCHC 32.6 g/dl (32.0-36.0); MEAN CELL VOLUME 83.8 fl (80-96); MEAN PLT VOLUME 9.6 fl (7.5-11.1); PLATELET COUNT 102 K/MM3 (134-434); RDW 14.5 % (11.6-15.6); WHITE BLOOD COUNT 7.5 K/mm3 (4.0-10.0)
[2016-10-04 09:03] LABS: ALBUMIN 2.1 g/dl (3.4-5.0); ALK PHOS 155 U/L (45-117); ANION GAP 8 (8-16); BILIRUBIN,TOTAL 0.7 mg/dL (0.2-1.0); CO2 32 mmol/L (21-32); CREATININE 0.2 mg/dL (0.55-1.02); GLUCOSE,RANDOM 177 mg/dL (74-106); MAGNESIUM 1.4 mg/dL (1.8-2.4); PHOSPHOROUS 1.8 mg/dL (2.5-4.9); SGOT/AST 41 U/L (15-37); SGPT/ALT 213 U/L (12-78)
[2016-10-04 09:10] LABS: CALCIUM 6.9 mg/dL (8.5-10.1)
[2016-10-04] MEDS: ASCORBIC ACID 500 MG TABLET (FP) PO SCH ×2 (09:45→21:13)
[2016-10-04] MEDS: MULTIVITAMINS (DAILY MVI) TABLET (FP) PO SCH (09:45)
[2016-10-04] MEDS: ZINC SULFATE 220 MG CAPSULE (FP) PO SCH (09:45)
[2016-10-04] MEDS: LACTOBACILLUS ACIDOPHILUS 1 EACH TAB (FP) PO SCH ×2 (09:45→21:28)
[2016-10-04] MEDS: NYSTATIN POWDER 100,000 UNITS/GM - 15 GM TOPICAL POWDER TP SCH (09:47)
[2016-10-04] MEDS ORDERED: POTASSIUM PHOSPHATE 30 MM in DEXTROSE 5%-WATER - 250 ML IVPB ONE (10:00)
[2016-10-04] MEDS ORDERED: MAGNESIUM SULF 50% (8.12 MEQ/2 ML-1 GM VIAL) IVPB ONE (10:00)
--- NOTE | 2016-10-04 10:09 | PN ---
Progress Note (short form) - Note Progress Note: PULMONARY NO RESP DISTRESS VSS/AFEBRILE NO OVERALL CHANGE IN EXAM LABS/MEDS/NOTES/IMAGING REVIEWED A/P UTI s/p Septic Shock Sacral Decubitus Ulcer s/p Acute Respiratory Failure Seizure Disorder DM - continue antibiotics - f/u cultures - replete lytes - wound care - morphine for comfort - DVT prophylaxis Raciel COHEN MD
[2016-10-04] MEDS ORDERED: POTASSIUM PHOSPHATE 30 MM in DEXTROSE 5%-WATER - 500 ML IVPB ONE (10:16)
--- NOTE | 2016-10-04 10:42 | CONSULT ---
Admitting History and Physical - Past Medical History [employer]: Yes: Dementia (advanced, nonverbal), Seizure Cardiovascular: Yes: Other Pulmonary: Yes: Asthma Gastrointestinal: Yes: Constipation Renal/: Yes: UTI ...: No Infectious Disease: Yes: Other (Sacral osteomyelitis Sepsis) Psych: Yes: Other (Dementia) Endocrine: Yes: Diabetes Mellitus, Hyperparathyroidism, Hypothyroidism Dermatology: Yes: Other (Pressure ulcer stage 4) - Past Surgical History Past Surgical History: Yes: Cholecystectomy - Advance Directives Advance Directives: Yes: Living Will, Health Care Proxy, DNR - Smoking History Smoking history: Unknown if ever smoked Have you smoked in the past 12 months: No Aproximately how many cigarettes per day: 0 - Alcohol/Substance Use Hx Alcohol Use: No History of Substance Use: reports: None - Social History ADL: Support Services History of Recent Travel: No History - Admission Reason For Visit: SEPSIS, SACRAL DECUBITUS - Hearing Hearing: Normal Speech Evaluation - Communication Primary Language: BANGLADESHI Communication: Yes: Non-Communicable Oral Expression Ability: Yes: Non-Verbal (secondary to advanced dementia, vocalizations and incoherent words. Pt was able to say "yes." in response to a question.) - Speech Production Apraxia: No Able to Make Needs Known: Yes: Severely Impaired Intelligibility: Yes: Severely Impaired - Speech Characteristics Voice Loudness: Mildly Soft/Quiet Voice Pitch: Yes: Limited Variation Voice Phonatory-based Quality: Yes: Quivering, Strident Speech Pattern: Impaired Speech Clarity: < 100% Nasal Resonance: Normal Articulation: Yes: Imprecise Voice, Other Observations: Yes: Mouth Breathing, Throat Clearing, Progressively Weak Voice, Disordered Intonation - Language/Auditory Comprehension Observation: Able to respond to yes/no queries: No (occassionally ), Yes/No Confusion: Yes, Comprehends Conversational Speech: No (possibly simple social speech), Benefits from Slow Speech: Yes, Benefits from Repetiton: Yes, Benefits from Increased Volume of Speech: No - Language/Verbal Expression Aphasia: Yes: Neologisms Able to Respond to Simple Queries: Yes: Severely Impaired Able to Communicate Wants and Needs: Yes: Severely Impaired Functional Communication Status: Yes: Severely Impaired (Essentially Non-verbal) Aware of Errors: No Attempts to Correct Errors: No Use of Gestures: No Attention: Yes: Profound Impairment (Pt will turn towards speaker when her name is called. 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 Pt has top teeth. Unable to visually observe bottom teeth secondary to AMS.) Facial Symmetry at Rest: Symmetrical Facial Symmetry on Retraction: Symmetrical Facial Movement: Controlled Facial Comment: Informal observation only secondary to AMS but appears WFL. Jaw Position: Open at Rest Against Resistance Opening: Normal Against Resistance Closing: Weak Lips, Comment: Informal observation only secondary to AMS but appears WFL. Lingual Movement: Unable to Perform (Informal observation only secondary to AMS but appears WFL.) Lingual Speed of Movement: Other (unable to perfrm) Lingual Movement Characteristics: Jerky (Informal observation only secondary to AMS but appears WFL.) Lingual Comment: Informal observation only secondary to AMS but appears WFL. Gag Reflex: Absent Velopharyngeal Movement: Reduced Elevation Laryngeal Elevation: Impaired Laryngeal Movement: Unable to Palpate Needs Assistance: Yes Bolus Size: Small Labial Seal: WFL Chewing: Impaired Oral Prep Time: Increased A-P Transit: Impaired Coughing/Throat Clear: Yes Change in Voice: No Other Findings/Remarks: 61 year old female seen at bedside eval to r/o dysphagia. Pt present with advanced dementia, non-verbal but vocal, unable to follow directives. Nasal canula in place. Poor secretion management as pt intermittently coughs to clear airway with weak voicing. PMHX includes seizure, AK failure, UTI diabetes mellitus and asthma. Pt was unable to participate in oral motor examination secondary to AMS. Pt given po trials of ice chips and sips of water via spoon revealed poor acceptance, adequate labial containment and A-P transport. Pharyngeal swallow is delayed 2-4 seconds with coughing observed after the swallow. Multiple swallow observed and delayed coughing observed. No solid consistency offered at this time. Recommendations - Speech Evaluation, Impression/Plan Impression: 61 year old female present with moderate to severe pharyngeal phase dysphagia with positive s/s of aspiration at this time. Pt is at risk for aspiration with po trials. House Principal Goals: Maintain NPO status. Short Term Goals: Maintain NPO status - Dysphagia Impressions/Plan Swallowing Skills: Impaired Dysphagia Impressions: Profound Impairment, Risk of Aspiration, Suspect Aspiration *Silent aspiration: cannot be R/O at bedside Dysphagia Treatment Plan: Other Dysphagia Evaluation Summary: Pt is not safe to consume po trials of liquids or solids at this time. Continue NPO status. Consider alternative methods for providing nutrition and hydration. Observe standard aspiration precautions. Results given to battery charger Maggy and to pcp via chart. Recommendations: Modified Barium Swallow (If patient is cece.) - Recommendations Diet Consistency: NPO Liquids: NPO, IV Hydration
[2016-10-04] MEDS: levETIRAcetam 500 MG/5 ML INJECTION VIAL IVPB SCH ×2 (11:05→21:41)
[2016-10-04] MEDS: HEPARIN NA (PORCINE) 5,000 UNITS/ML 1ML VIAL SQ SCH ×2 (11:06→21:41)
--- NOTE | 2016-10-04 11:42 | PN ---
Progress Note, Physician History of Present Illness: Pt. was transferred to the floor form ICU ( yesterday), off BIPAP. Pt is more alert today than yesterday. - Current Medication List Current Medications: Active Medications Ascorbic Acid (Vitamin C -) 500 mg PO BID [facility] Last Admin: 10/04/16 09:45 Dose: Not Given Atorvastatin Calcium (Lipitor -) 40 mg PO HS [facility] Last Admin: 10/03/16 21:37 Dose: Not Given Heparin Sodium (Porcine) (Heparin -) 5,000 unit SQ BID [facility] Last Admin: 10/04/16 11:06 Dose: 5,000 unit Dextrose/Sodium Chloride (D5-1/2ns -) 1,000 mls @ 50 mls/hr IV ASDIR [facility] Last Admin: 10/03/16 10:56 Dose: 50 mls/hr Ampicillin Sodium/Sulbactam Sodium (Unasyn 1.5 Gm (Pre-Docked)) 100 mls @ 200 mls/hr IVPB Q6H-IV [facility] Last Admin: 10/04/16 09:44 Dose: 200 mls/hr Potassium Chloride (Potassium Chloride 10 Meq Premix Ivpb -) 100 mls @ 100 mls/ hr IVPB Q1H [facility] Stop: 10/04/16 11:59 Potassium Phosphate 30 mm/ (Dextrose) 510 mls @ 85 mls/hr IVPB ONCE ONE Stop: 10/04/16 15:59 Insulin Aspart (Novolog Vial Sliding Scale -) 1 vial SQ Q4HPO [facility] PRN Reason: Protocol Last Admin: 10/04/16 11:31 Dose: Not Given Lactobacillus Acidophilus (Bacid -) 1 tab PO BID [facility] Last Admin: 10/04/16 09:45 Dose: Not Given Levetiracetam (Keppra Injection -) 500 mg IVPB BID [facility] Last Admin: 10/04/16 11:05 Dose: 500 mg Magnesium Oxide (Mag-Ox -) 800 mg PO BID [facility] Morphine Sulfate (Morphine Injection -) 2 mg IVPUSH Q3H PRN PRN Reason: PAIN Multivitamins/Minerals/Vitamin C (Tab-A-Vit -) 1 tab PO DAILY [facility] Last Admin: 10/04/16 09:45 Dose: Not Given Nystatin (Nystop Powder -) 1 applic TP DAILY [facility] Last Admin: 10/04/16 09:47 Dose: 1 applic Pantoprazole Sodium (Protonix 40mg Ivpb (Pre-Docked)) 40 mg IVPB DAILY [facility] Last Admin: 10/03/16 10:55 Dose: 40 mg Zinc Sulfate (Orazinc -) 220 mg PO DAILY [facility] Last Admin: 10/04/16 09:45 Dose: Not Given - Objective Vital Signs: Vital Signs Temperature 98.4 F 10/04/16 09:00 Pulse Rate 77 10/04/16 10:35 Respiratory Rate 20 10/04/16 09:00 Blood Pressure 100/62 10/04/16 09:00 O2 Sat by Pulse Oximetry (%) 97 10/04/16 10:45 Constitutional: Yes: No Distress, Calm Cardiovascular: Yes: Regular Rate and Rhythm, S1, S2 Respiratory: Yes: Regular, Rales (bilat., scattered) Gastrointestinal: Yes: Normal Bowel Sounds, Soft Edema: No Integumentary: Yes: Other (sacral ulcer) Labs: CBC, BMP 10/04/16 08:00 10/04/16 08:00 INR, PTT INR 1.23 (0.82-1.09) H 09/30/16 11:30 Problem List - Problems (1) Septic shock Assessment/Plan: IV abtx- per ID IVF Admitted to ICU, now on regular floor ID consult and f/u appreciated CCM consult appreciated Pt is off pressor. Code(s): A41.9 - SEPSIS, UNSPECIFIED ORGANISM R65.21 - SEVERE SEPSIS WITH SEPTIC SHOCK (2) UTI (urinary tract infection) Assessment/Plan: IV abtx per ID. Code(s): N39.0 - URINARY TRACT INFECTION, SITE NOT SPECIFIED Qualifiers: Urinary tract infection type: catheter-associated UTI Indwelling urinary catheter type: indwelling urethral catheter Encounter type: initial encounter Qualified Code(s): T83.511A - Infection and inflammatory reaction due to indwelling urethral catheter, initial encounter; N39.0 - Urinary tract infection, site not specified (3) Ulcer of sacral region, stage 4 Assessment/Plan: Chronic Hx/o OM Code(s): L89.154 - PRESSURE ULCER OF SACRAL REGION, STAGE 4 (4) Diabetes mellitus Assessment/Plan: BGM and Coverage only. BGM coverage was changed. Cannot tolerate PO- swallow eval appreciated. Code(s): E11.9 - TYPE 2 DIABETES MELLITUS WITHOUT COMPLICATIONS Qualifiers: Diabetes mellitus type: other specified (including FERCHO) (5) Endocarditis Assessment/Plan: Hx/o endocarditis Code(s): I38 - ENDOCARDITIS, VALVE UNSPECIFIED (6) Seizure Assessment/Plan: on IV Keppra. Pt. is very anxious at baseline, with arm/ hand tremor at baseline Code(s): R56.9 - UNSPECIFIED CONVULSIONS Qualifiers: Convulsion type: unspecified Qualified Code(s): R56.9 - Unspecified convulsions (7) Elevated liver enzymes Assessment/Plan: Probable secondary to sepsis. Improving. To monitor LFTs Code(s): R74.8 - ABNORMAL LEVELS OF OTHER SERUM ENZYMES (8) Acute renal insufficiency Code(s): N28.9 - DISORDER OF KIDNEY AND URETER, UNSPECIFIED (9) Acute respiratory failure Assessment/Plan: Improving, off BIPAP To monitor Code(s): J96.00 - ACUTE RESPIRATORY FAILURE, UNSP W HYPOXIA OR HYPERCAPNIA (10) Hypokalemia Assessment/Plan: To replete K ( IV). Code(s): E87.6 - HYPOKALEMIA (11) Hypomagnesemia Assessment/Plan: replete Mg ( IV) Code(s): E83.42 - HYPOMAGNESEMIA (12) Hypophosphatemia Assessment/Plan: replete PH ( IV). Code(s): E83.39 - OTHER DISORDERS OF PHOSPHORUS METABOLISM Assessment/Plan AM labs. If pt. would not tolerate PO in near future, per HCP, might go on Hospice.
--- NOTE | 2016-10-04 11:45 | PN ---
Progress Note (short form) - Note Progress Note: Pt. with poor IV access. Pt. was examined with her nurse (Woodrow). To use leg for IV access. Problem List - Problems (1) Septic shock Code(s): A41.9 - SEPSIS, UNSPECIFIED ORGANISM R65.21 - SEVERE SEPSIS WITH SEPTIC SHOCK (2) UTI (urinary tract infection) Code(s): N39.0 - URINARY TRACT INFECTION, SITE NOT SPECIFIED Qualifiers: Urinary tract infection type: catheter-associated UTI Indwelling urinary catheter type: indwelling urethral catheter Encounter type: initial encounter Qualified Code(s): T83.511A - Infection and inflammatory reaction due to indwelling urethral catheter, initial encounter; N39.0 - Urinary tract infection, site not specified (3) Ulcer of sacral region, stage 4 Code(s): L89.154 - PRESSURE ULCER OF SACRAL REGION, STAGE 4 (4) Diabetes mellitus Code(s): E11.9 - TYPE 2 DIABETES MELLITUS WITHOUT COMPLICATIONS Qualifiers: Diabetes mellitus type: other specified (including FERCHO) (5) Endocarditis Code(s): I38 - ENDOCARDITIS, VALVE UNSPECIFIED (6) Seizure Code(s): R56.9 - UNSPECIFIED CONVULSIONS Qualifiers: Convulsion type: unspecified Qualified Code(s): R56.9 - Unspecified convulsions (7) Elevated liver enzymes Code(s): R74.8 - ABNORMAL LEVELS OF OTHER SERUM ENZYMES (8) Acute renal insufficiency Code(s): N28.9 - DISORDER OF KIDNEY AND URETER, UNSPECIFIED (9) Acute respiratory failure Code(s): J96.00 - ACUTE RESPIRATORY FAILURE, UNSP W HYPOXIA OR HYPERCAPNIA (10) Hypokalemia Code(s): E87.6 - HYPOKALEMIA (11) Hypomagnesemia Code(s): E83.42 - HYPOMAGNESEMIA (12) Hypophosphatemia Code(s): E83.39 - OTHER DISORDERS OF PHOSPHORUS METABOLISM
[2016-10-04] MEDS: PANTOPRAZOLE SODIUM 40 MG/100 ML PRE-DOCKED IVPB SCH (11:46)
[2016-10-04] MEDS: DEXTROSE 5%-0.45% SALINE 1,000 ML IV SCH (11:46)
[2016-10-04] MEDS: KCL 10 MEQ IVPB 100 ML IVPB SCH ×2 (12:39→13:50)
[2016-10-04] MEDS ORDERED: INSULIN (NOVOLOG) ASPART 100 UNITS/ML 10ML VIAL ONE (18:09)
[2016-10-04] MEDS: ATORVASTATIN CA 40 MG TABLET (FP) PO SCH (21:13)
[2016-10-05] MEDS: INSULIN SLIDING SCALE (NOVOLOG) 1 VIAL SQ SCH ×6 (02:08→22:10)
[2016-10-05] MEDS: AMPICILLIN NA/SULBACTAM NA 100 ML IVPB SCH ×4 (02:24→22:02)
[2016-10-05] MEDS: DEXTROSE 5%-0.45% SALINE 1,000 ML IV SCH ×2 (06:25→10:13)
[2016-10-05] MEDS ORDERED: INSULIN (NOVOLOG) ASPART 100 UNITS/ML 10ML VIAL ONE ×2 (09:56→14:15)
[2016-10-05] MEDS: HEPARIN NA (PORCINE) 5,000 UNITS/ML 1ML VIAL SQ SCH ×2 (10:12→22:02)
[2016-10-05] MEDS: levETIRAcetam 500 MG/5 ML INJECTION VIAL IVPB SCH ×2 (10:12→22:02)
[2016-10-05] MEDS: MULTIVITAMINS (DAILY MVI) TABLET (FP) PO SCH (10:13)
[2016-10-05] MEDS: NYSTATIN POWDER 100,000 UNITS/GM - 15 GM TOPICAL POWDER TP SCH (10:13)
[2016-10-05] MEDS: ZINC SULFATE 220 MG CAPSULE (FP) PO SCH (10:13)
[2016-10-05] MEDS: LACTOBACILLUS ACIDOPHILUS 1 EACH TAB (FP) PO SCH ×2 (10:13→22:02)
[2016-10-05] MEDS: ASCORBIC ACID 500 MG TABLET (FP) PO SCH ×2 (10:13→22:02)
[2016-10-05] MEDS: PANTOPRAZOLE SODIUM 40 MG/100 ML PRE-DOCKED IVPB SCH (10:48)
--- NOTE | 2016-10-05 11:09 | PN ---
Progress Note (short form) - Note Progress Note: PULMONARY No fevers recorded. Appears comfortable. Last Vital Signs Temp Pulse Resp BP Pulse Ox 98.2 F 52 L 20 134/76 97 10/05/16 06:36 10/05/16 09:51 10/05/16 06:36 10/05/16 06:36 10/05/16 09:51 Gen: lethargic but arousable Heart: RRR Lung: scattered rhonchi Abd: soft, nontender Ext: trace edema CBC, BMP 10/04/16 08:00 10/04/16 08:00 Active Medications Ascorbic Acid (Vitamin C -) 500 mg PO BID [facility] Last Admin: 10/05/16 10:13 Dose: Not Given Atorvastatin Calcium (Lipitor -) 40 mg PO HS [facility] Last Admin: 10/04/16 21:13 Dose: Not Given Heparin Sodium (Porcine) (Heparin -) 5,000 unit SQ BID [facility] Last Admin: 10/05/16 10:12 Dose: 5,000 unit Dextrose/Sodium Chloride (D5-1/2ns -) 1,000 mls @ 50 mls/hr IV [facility] Last Admin: 10/05/16 10:13 Dose: Not Given Ampicillin Sodium/Sulbactam Sodium (Unasyn 1.5 Gm (Pre-Docked)) 100 mls @ 200 mls/hr IVPB Q6H-IV [facility] Last Admin: 10/05/16 02:24 Dose: 200 mls/hr Insulin Aspart (Novolog Vial Sliding Scale -) 1 vial SQ Q4HPO [facility] PRN Reason: Protocol Last Admin: 10/05/16 10:19 Dose: 3 units Lactobacillus Acidophilus (Bacid -) 1 tab PO BID [facility] Last Admin: 10/05/16 10:13 Dose: Not Given Levetiracetam (Keppra Injection -) 500 mg IVPB BID [facility] Last Admin: 10/05/16 10:12 Dose: 500 mg Magnesium Oxide (Mag-Ox -) 800 mg PO BID [facility] Morphine Sulfate (Morphine Injection -) 2 mg IVPUSH Q3H PRN PRN Reason: PAIN Multivitamins/Minerals/Vitamin C (Tab-A-Vit -) 1 tab PO DAILY [facility] Last Admin: 10/05/16 10:13 Dose: Not Given Nystatin (Nystop Powder -) 1 applic TP DAILY [facility] Last Admin: 10/05/16 10:13 Dose: 1 applic Pantoprazole Sodium (Protonix 40mg Ivpb (Pre-Docked)) 40 mg IVPB DAILY [facility] Last Admin: 10/05/16 10:48 Dose: 40 mg Zinc Sulfate (Orazinc -) 220 mg PO DAILY [facility] Last Admin: 10/05/16 10:13 Dose: Not Given A/P UTI s/p Septic Shock Sacral Decubitus Ulcer s/p Acute Respiratory Failure Seizure Disorder DM - continue antibiotics - wound care - morphine for comfort - DVT prophylaxis
[2016-10-05 11:55] LABS: ALBUMIN 2.2 g/dl (3.4-5.0); ANION GAP 7 (8-16); CO2 35 mmol/L (21-32); GLUCOSE,RANDOM 207 mg/dL (74-106); MAGNESIUM 1.4 mg/dL (1.8-2.4)
[2016-10-05 11:59] LABS: ALK PHOS 155 U/L (45-117); BILIRUBIN,TOTAL 0.5 mg/dL (0.2-1.0); CREATININE 0.3 mg/dL (0.55-1.02); SGOT/AST 29 U/L (15-37); SGPT/ALT 158 U/L (12-78); TOT PROT 5.2 g/dl (6.4-8.2)
--- NOTE | 2016-10-05 15:24 | PN ---
Progress Note (short form) - Note Progress Note: afebrile Vital Signs Period Temp Pulse Resp BP Sys/Paz Pulse Ox Last 24 Hr 98.0 F-98.5 F 52-80 20-22 102-134/60-76 96-97 cor-rrr lungs decreased bs at bases abd soft,nt ext no edema CBC, BMP 10/04/16 08:00 10/05/16 10:55 Microbiology 09/30/16 11:30 Blood - Peripheral Venous Blood Culture - Final NO GROWTH AFTER 5 DAYS INCUBATION 09/30/16 11:30 Blood - Peripheral Venous Blood Culture - Final NO GROWTH AFTER 5 DAYS INCUBATION 09/30/16 10:58 Decubiti Gram Stain - Final 09/30/16 10:58 Decubiti Wound Culture - Final Staphylococcus Aureus Diphtheroid/Corynebacterium 09/30/16 11:30 Urine - Urine - Catheterized Urine Culture - Final Proteus Mirabilus - Esbl Produ Enterococcus Faecalis a/p s/p septic shock- source felt to be urine day #5 antibiotics now on unasyn she failed swallowing eval and family doesnot want feeding tube ?hospice/palliative care finish 7 days of antiibotics please call back if needed
--- NOTE | 2016-10-05 16:42 | PN ---
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 Pt continues to present as non-verbal, advanced Dementia, unable to follow directives. Pt presents with open mouth posture at rest and reduced airway protection. Pt is not a candidate for po trials at this time. Recommendations. Continue NPO status at this time. Consider alternative methods for providing medication, hydration and nutrition. Results given to propellant charge loader Joanna and to pcp via chart.
[2016-10-05] MEDS: ATORVASTATIN CA 40 MG TABLET (FP) PO SCH (22:02)
--- NOTE | 2016-10-05 22:51 | PN ---
Progress Note, Physician History of Present Illness: Pt. was transferred to the floor from ICU, off BIPAP. Pt is more alert today than yesterday. Pt was seen in AM; labs pending. - Current Medication List Current Medications: Active Medications Ascorbic Acid (Vitamin C -) 500 mg PO BID [facility] Last Admin: 10/05/16 22:02 Dose: Not Given Atorvastatin Calcium (Lipitor -) 40 mg PO HS [facility] Last Admin: 10/05/16 22:02 Dose: Not Given Heparin Sodium (Porcine) (Heparin -) 5,000 unit SQ BID [facility] Last Admin: 10/05/16 22:02 Dose: 5,000 unit Dextrose/Sodium Chloride (D5-1/2ns -) 1,000 mls @ 50 mls/hr IV ASDIR [facility] Last Admin: 10/05/16 10:13 Dose: Not Given Ampicillin Sodium/Sulbactam Sodium (Unasyn 1.5 Gm (Pre-Docked)) 100 mls @ 200 mls/hr IVPB Q6H-IV [facility] Last Admin: 10/05/16 22:02 Dose: 200 mls/hr Potassium Phosphate 30 mm/ (Dextrose) 260 mls @ 65 mls/hr IVPB ONCE ONE PRN Reason: 30 MM/4 HR Stop: 10/06/16 02:40 Insulin Aspart (Novolog Vial Sliding Scale -) 1 vial SQ Q4HPO [facility] PRN Reason: Protocol Last Admin: 10/05/16 22:10 Dose: Not Given Lactobacillus Acidophilus (Bacid -) 1 tab PO BID [facility] Last Admin: 10/05/16 22:02 Dose: Not Given Levetiracetam (Keppra Injection -) 500 mg IVPB BID [facility] Last Admin: 10/05/16 22:02 Dose: 500 mg Magnesium Oxide (Mag-Ox -) 800 mg PO BID [facility] Magnesium Sulfate (Magnesium Sulfate) 2 gm IVPB ONCE ONE Stop: 10/05/16 22:43 Multivitamins/Minerals/Vitamin C (Tab-A-Vit -) 1 tab PO DAILY [facility] Last Admin: 10/05/16 10:13 Dose: Not Given Nystatin (Nystop Powder -) 1 applic TP DAILY [facility] Last Admin: 10/05/16 10:13 Dose: 1 applic Pantoprazole Sodium (Protonix 40mg Ivpb (Pre-Docked)) 40 mg IVPB DAILY [facility] Last Admin: 10/05/16 10:48 Dose: 40 mg Zinc Sulfate (Orazinc -) 220 mg PO DAILY [facility] Last Admin: 10/05/16 10:13 Dose: Not Given - Objective Vital Signs: Vital Signs Temperature 97.9 F 10/05/16 18:46 Pulse Rate 78 10/05/16 18:46 Respiratory Rate 20 10/05/16 18:46 Blood Pressure 131/62 10/05/16 18:46 O2 Sat by Pulse Oximetry (%) 97 10/05/16 09:51 Constitutional: Yes: No Distress, Calm Cardiovascular: Yes: Regular Rate and Rhythm, S1, S2 Respiratory: Yes: Regular, Rales (scattered) Gastrointestinal: Yes: Normal Bowel Sounds, Soft Extremities: Yes: Other (Right leg IV line, no erythema, no calor) Edema: No Neurological: Yes: Alert, Oriented Labs: CBC, BMP 10/04/16 08:00 10/05/16 10:55 INR, PTT INR 1.23 (0.82-1.09) H 09/30/16 11:30 Problem List - Problems (1) Septic shock Assessment/Plan: IV abtx- per ID IVF Admitted to ICU, now on regular floor ID consult and f/u appreciated CCM consult appreciated Pt is off pressor. Code(s): A41.9 - SEPSIS, UNSPECIFIED ORGANISM R65.21 - SEVERE SEPSIS WITH SEPTIC SHOCK (2) UTI (urinary tract infection) Assessment/Plan: IV abtx per ID. Code(s): N39.0 - URINARY TRACT INFECTION, SITE NOT SPECIFIED Qualifiers: Urinary tract infection type: catheter-associated UTI Indwelling urinary catheter type: indwelling urethral catheter Encounter type: initial encounter Qualified Code(s): T83.511A - Infection and inflammatory reaction due to indwelling urethral catheter, initial encounter; N39.0 - Urinary tract infection, site not specified (3) Ulcer of sacral region, stage 4 Assessment/Plan: Chronic Hx/o OM Code(s): L89.154 - PRESSURE ULCER OF SACRAL REGION, STAGE 4 (4) Diabetes mellitus Assessment/Plan: BGM and Coverage only. BGM coverage was changed. Cannot tolerate PO- swallow eval appreciated. Code(s): E11.9 - TYPE 2 DIABETES MELLITUS WITHOUT COMPLICATIONS Qualifiers: Diabetes mellitus type: other specified (including FERCHO) (5) Endocarditis Code(s): I38 - ENDOCARDITIS, VALVE UNSPECIFIED (6) Seizure Code(s): R56.9 - UNSPECIFIED CONVULSIONS Qualifiers: Convulsion type: unspecified Qualified Code(s): R56.9 - Unspecified convulsions (7) Elevated liver enzymes Assessment/Plan: Probable secondary to sepsis. Improving. To monitor LFTs Code(s): R74.8 - ABNORMAL LEVELS OF OTHER SERUM ENZYMES (8) Acute renal insufficiency Code(s): N28.9 - DISORDER OF KIDNEY AND URETER, UNSPECIFIED (9) Acute respiratory failure Assessment/Plan: Improving, off BIPAP To monitor Code(s): J96.00 - ACUTE RESPIRATORY FAILURE, UNSP W HYPOXIA OR HYPERCAPNIA (10) Hypokalemia Assessment/Plan: To replete K ( IV)- as needed. Code(s): E87.6 - HYPOKALEMIA (11) Hypomagnesemia Assessment/Plan: replete Mg ( IV)- as needed Code(s): E83.42 - HYPOMAGNESEMIA (12) Hypophosphatemia Assessment/Plan: replete Ph ( IV)- as needed. Code(s): E83.39 - OTHER DISORDERS OF PHOSPHORUS METABOLISM Assessment/Plan AM labs. To f/u with swallow specialist- consult appreciated. If pt. would not tolerate PO in near future, per HCP, might go on Hospice.
[2016-10-05] MEDS ORDERED: POTASSIUM PHOSPHATE 30 MM in DEXTROSE 5%-WATER - 500 ML IVPB ONE (23:30)
[2016-10-05] MEDS ORDERED: MAGNESIUM SULF 50% (8.12 MEQ/2 ML-1 GM VIAL) IVPB ONE (23:30)
[2016-10-06] MEDS: AMPICILLIN NA/SULBACTAM NA 100 ML IVPB SCH ×4 (02:22→21:07)
[2016-10-06] MEDS: INSULIN SLIDING SCALE (NOVOLOG) 1 VIAL SQ SCH ×6 (02:35→21:10)
[2016-10-06 08:59] LABS: CREATININE 0.2 mg/dL (0.55-1.02); PHOSPHOROUS 3.6 mg/dL (2.5-4.9)
[2016-10-06] MEDS: LACTOBACILLUS ACIDOPHILUS 1 EACH TAB (FP) PO SCH ×2 (09:55→21:07)
[2016-10-06] MEDS: MULTIVITAMINS (DAILY MVI) TABLET (FP) PO SCH (09:55)
[2016-10-06] MEDS: ZINC SULFATE 220 MG CAPSULE (FP) PO SCH (09:55)
[2016-10-06] MEDS: ASCORBIC ACID 500 MG TABLET (FP) PO SCH ×2 (09:55→21:08)
[2016-10-06] MEDS ORDERED: PT OWN MED DRAWER 7, Y5N ONE (09:58)
[2016-10-06] MEDS: NYSTATIN POWDER 100,000 UNITS/GM - 15 GM TOPICAL POWDER TP SCH (10:19)
[2016-10-06] MEDS: HEPARIN NA (PORCINE) 5,000 UNITS/ML 1ML VIAL SQ SCH ×2 (10:19→21:07)
[2016-10-06] MEDS: DEXTROSE 5%-0.45% SALINE 1,000 ML IV SCH (11:04)
[2016-10-06] MEDS: levETIRAcetam 500 MG/5 ML INJECTION VIAL IVPB SCH ×2 (11:05→21:08)
[2016-10-06] MEDS: PANTOPRAZOLE SODIUM 40 MG/100 ML PRE-DOCKED IVPB SCH (11:05)
[2016-10-06 12:24] LABS: MAGNESIUM 1.7 mg/dL (1.8-2.4)
[2016-10-06] MEDS ORDERED: MAGNESIUM SULF 50% (8.12 MEQ/2 ML-1 GM VIAL) IVPB ONE (14:36)
[2016-10-06] MEDS: ATORVASTATIN CA 40 MG TABLET (FP) PO SCH (21:08)
--- NOTE | 2016-10-06 23:37 | PN ---
Progress Note, Physician History of Present Illness: Pt. was transferred to the floor from ICU, off BIPAP. Pt is more alert today than yesterday. Pt. still not able to tolerate PO intake. Pt. cannot provide ROS , secondary of dementia. - Current Medication List Current Medications: Active Medications Ascorbic Acid (Vitamin C -) 500 mg PO BID [facility] Last Admin: 10/06/16 21:08 Dose: Not Given Atorvastatin Calcium (Lipitor -) 40 mg PO HS [facility] Last Admin: 10/06/16 21:08 Dose: Not Given Heparin Sodium (Porcine) (Heparin -) 5,000 unit SQ BID [facility] Last Admin: 10/06/16 21:07 Dose: 5,000 unit Dextrose/Sodium Chloride (D5-1/2ns -) 1,000 mls @ 50 mls/hr IV ASDIR [facility] Last Admin: 10/06/16 11:04 Dose: 50 mls/hr Ampicillin Sodium/Sulbactam Sodium (Unasyn 1.5 Gm (Pre-Docked)) 100 mls @ 200 mls/hr IVPB Q6H-IV [facility] Last Admin: 10/06/16 21:07 Dose: 200 mls/hr Insulin Aspart (Novolog Vial Sliding Scale -) 1 vial SQ Q4HPO [facility] PRN Reason: Protocol Last Admin: 10/06/16 21:10 Dose: Not Given Lactobacillus Acidophilus (Bacid -) 1 tab PO BID [facility] Last Admin: 10/06/16 21:07 Dose: Not Given Levetiracetam (Keppra Injection -) 500 mg IVPB BID [facility] Last Admin: 10/06/16 21:08 Dose: 500 mg Magnesium Oxide (Mag-Ox -) 800 mg PO BID [facility] Multivitamins/Minerals/Vitamin C (Tab-A-Vit -) 1 tab PO DAILY [facility] Last Admin: 10/06/16 09:55 Dose: Not Given Nystatin (Nystop Powder -) 1 applic TP DAILY [facility] Last Admin: 10/06/16 10:19 Dose: 1 applic Pantoprazole Sodium (Protonix 40mg Ivpb (Pre-Docked)) 40 mg IVPB DAILY [facility] Last Admin: 10/06/16 11:05 Dose: 40 mg Zinc Sulfate (Orazinc -) 220 mg PO DAILY [facility] Last Admin: 10/06/16 09:55 Dose: Not Given - Objective Vital Signs: Vital Signs Temperature 97.9 F 10/06/16 18:00 Pulse Rate 68 10/06/16 18:00 Respiratory Rate 18 10/06/16 18:00 Blood Pressure 106/47 10/06/16 18:00 O2 Sat by Pulse Oximetry (%) 98 10/06/16 10:32 Constitutional: Yes: No Distress, Calm Cardiovascular: Yes: Regular Rate and Rhythm, S1, S2 Respiratory: Yes: Regular, Other (coarse BS bilat.) Gastrointestinal: Yes: Normal Bowel Sounds, Soft Edema: No Neurological: Yes: Alert, Oriented Labs: CBC, BMP 10/04/16 08:00 10/06/16 08:25 INR, PTT INR 1.23 (0.82-1.09) H 09/30/16 11:30 Problem List - Problems (1) Septic shock Assessment/Plan: IV abtx- per ID IVF Admitted to ICU, now on regular floor ID consult and f/u appreciated CCM consult appreciated Pt is off pressor. Code(s): A41.9 - SEPSIS, UNSPECIFIED ORGANISM R65.21 - SEVERE SEPSIS WITH SEPTIC SHOCK (2) UTI (urinary tract infection) Assessment/Plan: IV abtx per ID. Code(s): N39.0 - URINARY TRACT INFECTION, SITE NOT SPECIFIED Qualifiers: Urinary tract infection type: catheter-associated UTI Indwelling urinary catheter type: indwelling urethral catheter Encounter type: initial encounter Qualified Code(s): T83.511A - Infection and inflammatory reaction due to indwelling urethral catheter, initial encounter; N39.0 - Urinary tract infection, site not specified (3) Ulcer of sacral region, stage 4 Assessment/Plan: Chronic Hx/o OM Code(s): L89.154 - PRESSURE ULCER OF SACRAL REGION, STAGE 4 (4) Diabetes mellitus Assessment/Plan: BGM and Coverage only. BGM coverage was changed. Cannot tolerate PO- swallow eval appreciated. Code(s): E11.9 - TYPE 2 DIABETES MELLITUS WITHOUT COMPLICATIONS Qualifiers: Diabetes mellitus type: other specified (including FERCHO) (5) Endocarditis Assessment/Plan: Hx/o endocarditis Code(s): I38 - ENDOCARDITIS, VALVE UNSPECIFIED (6) Seizure Assessment/Plan: on IV Keppra. Pt. is very anxious at baseline, with arm/ hand tremor at baseline Code(s): R56.9 - UNSPECIFIED CONVULSIONS Qualifiers: Convulsion type: unspecified Qualified Code(s): R56.9 - Unspecified convulsions (7) Elevated liver enzymes Assessment/Plan: Probable secondary to sepsis. Improving. To monitor LFTs Code(s): R74.8 - ABNORMAL LEVELS OF OTHER SERUM ENZYMES (8) Acute renal insufficiency Code(s): N28.9 - DISORDER OF KIDNEY AND URETER, UNSPECIFIED (9) Acute respiratory failure Assessment/Plan: Improving, off BIPAP To monitor Code(s): J96.00 - ACUTE RESPIRATORY FAILURE, UNSP W HYPOXIA OR HYPERCAPNIA (10) Hypokalemia Assessment/Plan: Corrected; to monitor. Code(s): E87.6 - HYPOKALEMIA (11) Hypomagnesemia Assessment/Plan: Improved. rTo replete Mg ( IV)- as needed Code(s): E83.42 - HYPOMAGNESEMIA (12) Hypophosphatemia Assessment/Plan: Corrected; to monitor. Code(s): E83.39 - OTHER DISORDERS OF PHOSPHORUS METABOLISM Assessment/Plan AM labs. To f/u with swallow specialist- consult appreciated. If pt. would not tolerate PO in near future, per HCP, might go on Hospice.
[2016-10-07] MEDS: INSULIN SLIDING SCALE (NOVOLOG) 1 VIAL SQ SCH ×6 (02:05→21:27)
[2016-10-07] MEDS: AMPICILLIN NA/SULBACTAM NA 100 ML IVPB SCH ×4 (02:23→21:24)
[2016-10-07 08:37] LABS: MCH 26.9 pg (25.7-33.7); MCHC 31.9 g/dl (32.0-36.0); MEAN CELL VOLUME 84.2 fl (80-96); MEAN PLT VOLUME 8.5 fl (7.5-11.1); PLATELET COUNT 165 K/MM3 (134-434); RDW 13.9 % (11.6-15.6)
[2016-10-07] MEDS: HEPARIN NA (PORCINE) 5,000 UNITS/ML 1ML VIAL SQ SCH ×2 (09:18→21:24)
[2016-10-07] MEDS: LACTOBACILLUS ACIDOPHILUS 1 EACH TAB (FP) PO SCH ×2 (09:22→21:24)
[2016-10-07] MEDS: ZINC SULFATE 220 MG CAPSULE (FP) PO SCH (09:22)
[2016-10-07] MEDS: MULTIVITAMINS (DAILY MVI) TABLET (FP) PO SCH (09:22)
[2016-10-07] MEDS: ASCORBIC ACID 500 MG TABLET (FP) PO SCH ×2 (09:22→21:25)
[2016-10-07 09:36] LABS: ALBUMIN 2.1 g/dl (3.4-5.0); ALK PHOS 140 U/L (45-117); ANION GAP 8 (8-16); BILIRUBIN,TOTAL 0.3 mg/dL (0.2-1.0); CO2 32 mmol/L (21-32); CREATININE 0.3 mg/dL (0.55-1.02); GLUCOSE,RANDOM 206 mg/dL (74-106); MAGNESIUM 1.5 mg/dL (1.8-2.4); PHOSPHOROUS 1.8 mg/dL (2.5-4.9); SGOT/AST 19 U/L (15-37); SGPT/ALT 88 U/L (12-78); TOT PROT 5.1 g/dl (6.4-8.2)
[2016-10-07] MEDS: PANTOPRAZOLE SODIUM 40 MG/100 ML PRE-DOCKED IVPB SCH (09:57)
[2016-10-07] MEDS: levETIRAcetam 500 MG/5 ML INJECTION VIAL IVPB SCH ×2 (10:40→22:00)
[2016-10-07] MEDS: DEXTROSE 5%-0.45% SALINE 1,000 ML IV SCH (10:47)
[2016-10-07] MEDS: NYSTATIN POWDER 100,000 UNITS/GM - 15 GM TOPICAL POWDER TP SCH (12:29)
--- NOTE | 2016-10-07 12:32 | PN ---
Progress Note (short form) - Note Progress Note: Drowsy but arousable. No significant change in overall condition. NAD Intake & Output 10/04/16 10/05/16 10/06/16 10/07/16 23:59 23:59 23:59 23:59 Intake Total 1600 1500 2450 550 Balance 1600 1500 2450 550 Weight 128 lb 127 lb 4 oz 123 lb 9.6 oz 123 lb 2 oz Last Vital Signs Temp Pulse Resp BP Pulse Ox 98.3 F 52 L 20 123/52 98 10/07/16 09:16 10/07/16 09:16 10/07/16 09:16 10/07/16 09:16 10/06/16 21:00 Active Medications Ascorbic Acid (Vitamin C -) 500 mg PO BID [facility] Last Admin: 10/07/16 09:22 Dose: Not Given Atorvastatin Calcium (Lipitor -) 40 mg PO HS [facility] Last Admin: 10/06/16 21:08 Dose: Not Given Heparin Sodium (Porcine) (Heparin -) 5,000 unit SQ BID [facility] Last Admin: 10/07/16 09:18 Dose: 5,000 unit Dextrose/Sodium Chloride (D5-1/2ns -) 1,000 mls @ 50 mls/hr IV ASDIR [facility] Last Admin: 10/07/16 10:47 Dose: 50 mls/hr Ampicillin Sodium/Sulbactam Sodium (Unasyn 1.5 Gm (Pre-Docked)) 100 mls @ 200 mls/hr IVPB Q6H-IV [facility] Last Admin: 10/07/16 09:17 Dose: 200 mls/hr Insulin Aspart (Novolog Vial Sliding Scale -) 1 vial SQ Q4HPO [facility] PRN Reason: Protocol Last Admin: 10/07/16 10:46 Dose: Not Given Lactobacillus Acidophilus (Bacid -) 1 tab PO BID [facility] Last Admin: 10/07/16 09:22 Dose: Not Given Levetiracetam (Keppra Injection -) 500 mg IVPB BID [facility] Last Admin: 10/07/16 10:40 Dose: 500 mg Magnesium Oxide (Mag-Ox -) 800 mg PO BID [facility] Multivitamins/Minerals/Vitamin C (Tab-A-Vit -) 1 tab PO DAILY [facility] Last Admin: 10/07/16 09:22 Dose: Not Given Nystatin (Nystop Powder -) 1 applic TP DAILY [facility] Last Admin: 04/01/17 12:29 Dose: 1 applic Pantoprazole Sodium (Protonix 40mg Ivpb (Pre-Docked)) 40 mg IVPB DAILY [facility] Last Admin: 10/07/16 09:57 Dose: 40 mg Zinc Sulfate (Orazinc -) 220 mg PO DAILY [facility] Last Admin: 10/07/16 09:22 Dose: Not Given Gen: Drowsy but arousable Heart: RRR Lung: scattered rhonchi Abd: soft, nontender Ext: trace edema Laboratory Results - last 24 hr 10/06/16 10/06/16 10/06/16 08:25 14:03 17:51 WBC RBC Hgb Hct MCV MCHC RDW Plt Count MPV Sodium Potassium Chloride Carbon Dioxide Anion Gap BUN Creatinine Creat Clearance w eGFR POC Glucometer 185 167 Random Glucose Calcium Phosphorus Magnesium 1.7 L D Total Bilirubin AST ALT Alkaline Phosphatase Total Protein Albumin 10/06/16 10/07/16 10/07/16 21:10 01:51 05:51 WBC RBC Hgb Hct MCV MCHC RDW Plt Count MPV Sodium Potassium Chloride Carbon Dioxide Anion Gap BUN Creatinine Creat Clearance w eGFR POC Glucometer 174 173 172 Random Glucose Calcium Phosphorus Magnesium Total Bilirubin AST ALT Alkaline Phosphatase Total Protein Albumin 10/07/16 10/07/16 10/07/16 07:50 07:50 10:45 WBC 6.0 RBC 4.28 Hgb 11.5 Hct 36.0 MCV 84.2 MCHC 31.9 L RDW 13.9 Plt Count 165 D MPV 8.5 D Sodium 140 Potassium 3.7 Chloride 100 Carbon Dioxide 32 Anion Gap 8 BUN 3 L D Creatinine 0.3 L D Creat Clearance w eGFR > 60 POC Glucometer 182 Random Glucose 206 H Calcium 7.0 L Phosphorus 1.8 L D Magnesium 1.5 L Total Bilirubin 0.3 D AST 19 D ALT 88 H D Alkaline Phosphatase 140 H Total Protein 5.1 L Albumin 2.1 L A/P UTI s/p Septic Shock Sacral Decubitus Ulcer s/p Acute Respiratory Failure Seizure Disorder DM - Aspiration precautions - wound care - morphine for comfort - DVT prophylaxis - DNR/DNI - Supportive measures Dr Naidu
[2016-10-07] MEDS ORDERED: POTASSIUM PHOSPHATE 30 MM in SODIUM CHLORIDE 250 ML IVPB ONE (14:15)
[2016-10-07] MEDS ORDERED: MAGNESIUM SULF 50% (8.12 MEQ/2 ML-1 GM VIAL) IVPB ONE (14:15)
--- NOTE | 2016-10-07 15:01 | PN ---
Progress Note, Physician History of Present Illness: Pt. was transferred to the floor from ICU, off BIPAP. Pt. still not able to tolerate PO intake. Pt. cannot provide ROS , secondary of dementia. - Current Medication List Current Medications: Active Medications Ascorbic Acid (Vitamin C -) 500 mg PO BID [facility] Last Admin: 10/07/16 09:22 Dose: Not Given Atorvastatin Calcium (Lipitor -) 40 mg PO HS [facility] Last Admin: 10/06/16 21:08 Dose: Not Given Heparin Sodium (Porcine) (Heparin -) 5,000 unit SQ BID [facility] Last Admin: 10/07/16 09:18 Dose: 5,000 unit Dextrose/Sodium Chloride (D5-1/2ns -) 1,000 mls @ 50 mls/hr IV ASDIR [facility] Last Admin: 10/07/16 10:47 Dose: 50 mls/hr Ampicillin Sodium/Sulbactam Sodium (Unasyn 1.5 Gm (Pre-Docked)) 100 mls @ 200 mls/hr IVPB Q6H-IV [facility] Last Admin: 10/07/16 14:19 Dose: 200 mls/hr Potassium Phosphate 30 mm/ (Sodium Chloride) 260 mls @ 65 mls/hr IVPB ONCE ONE PRN Reason: 30 MM/4 HR Stop: 10/07/16 18:14 Insulin Aspart (Novolog Vial Sliding Scale -) 1 vial SQ Q4HPO [facility] PRN Reason: Protocol Last Admin: 10/07/16 14:26 Dose: Not Given Lactobacillus Acidophilus (Bacid -) 1 tab PO BID [facility] Last Admin: 10/07/16 09:22 Dose: Not Given Levetiracetam (Keppra Injection -) 500 mg IVPB BID [facility] Last Admin: 10/07/16 10:40 Dose: 500 mg Magnesium Oxide (Mag-Ox -) 800 mg PO BID [facility] Multivitamins/Minerals/Vitamin C (Tab-A-Vit -) 1 tab PO DAILY [facility] Last Admin: 10/07/16 09:22 Dose: Not Given Nystatin (Nystop Powder -) 1 applic TP DAILY [facility] Last Admin: 10/07/16 12:29 Dose: 1 applic Pantoprazole Sodium (Protonix 40mg Ivpb (Pre-Docked)) 40 mg IVPB DAILY [facility] Last Admin: 10/07/16 09:57 Dose: 40 mg Zinc Sulfate (Orazinc -) 220 mg PO DAILY [facility] Last Admin: 10/07/16 09:22 Dose: Not Given - Objective Vital Signs: Vital Signs Temperature 98.1 F 10/07/16 13:39 Pulse Rate 82 10/07/16 13:39 Respiratory Rate 20 10/07/16 09:16 Blood Pressure 115/60 10/07/16 13:39 O2 Sat by Pulse Oximetry (%) 97 10/07/16 09:00 Constitutional: Yes: No Distress, Calm Cardiovascular: Yes: Regular Rate and Rhythm, S1, S2 Respiratory: Yes: Regular, CTA Bilaterally, Diminished, Other (coarse BS) Gastrointestinal: Yes: Normal Bowel Sounds, Soft. No: Distention Edema: No Labs: CBC, BMP 10/07/16 07:50 10/07/16 07:50 INR, PTT INR 1.23 (0.82-1.09) H 09/30/16 11:30 Problem List - Problems (1) Septic shock Assessment/Plan: IV abtx- per ID IVF Admitted to ICU, now on regular floor ID consult and f/u appreciated CCM consult appreciated Pt is off pressor. Code(s): A41.9 - SEPSIS, UNSPECIFIED ORGANISM R65.21 - SEVERE SEPSIS WITH SEPTIC SHOCK (2) UTI (urinary tract infection) Assessment/Plan: IV abtx per ID. Code(s): N39.0 - URINARY TRACT INFECTION, SITE NOT SPECIFIED Qualifiers: Urinary tract infection type: catheter-associated UTI Indwelling urinary catheter type: indwelling urethral catheter Encounter type: initial encounter Qualified Code(s): T83.511A - Infection and inflammatory reaction due to indwelling urethral catheter, initial encounter; N39.0 - Urinary tract infection, site not specified (3) Ulcer of sacral region, stage 4 Assessment/Plan: Chronic Hx/o OM Code(s): L89.154 - PRESSURE ULCER OF SACRAL REGION, STAGE 4 (4) Diabetes mellitus Assessment/Plan: BGM and Coverage only. BGM coverage was changed. Cannot tolerate PO- swallow eval. appreciated. Code(s): E11.9 - TYPE 2 DIABETES MELLITUS WITHOUT COMPLICATIONS Qualifiers: Diabetes mellitus type: other specified (including FERCHO) (5) Endocarditis Assessment/Plan: Hx/o endocarditis Code(s): I38 - ENDOCARDITIS, VALVE UNSPECIFIED (6) Seizure Assessment/Plan: on IV Keppra. Pt. is very anxious at baseline, with arm/ hand tremor at baseline Code(s): R56.9 - UNSPECIFIED CONVULSIONS Qualifiers: Convulsion type: unspecified Qualified Code(s): R56.9 - Unspecified convulsions (7) Elevated liver enzymes Assessment/Plan: Probable secondary to sepsis. Improving. To monitor LFTs Code(s): R74.8 - ABNORMAL LEVELS OF OTHER SERUM ENZYMES (8) Acute renal insufficiency Code(s): N28.9 - DISORDER OF KIDNEY AND URETER, UNSPECIFIED (9) Acute respiratory failure Assessment/Plan: Improving, off BIPAP To monitor Code(s): J96.00 - ACUTE RESPIRATORY FAILURE, UNSP W HYPOXIA OR HYPERCAPNIA (10) Hypokalemia Assessment/Plan: Corrected; to monitor. Code(s): E87.6 - HYPOKALEMIA (11) Hypomagnesemia Assessment/Plan: To replete Mg ( IV) Code(s): E83.42 - HYPOMAGNESEMIA (12) Hypophosphatemia Assessment/Plan: To replete Ph; to monitor. Code(s): E83.39 - OTHER DISORDERS OF PHOSPHORUS METABOLISM Assessment/Plan AM labs. If pt. would not tolerate PO in near future, per HCP, might go on Hospice.
[2016-10-07] MEDS ORDERED: INSULIN (NOVOLOG) ASPART 100 UNITS/ML 10ML VIAL ONE (17:51)
[2016-10-07] MEDS: ATORVASTATIN CA 40 MG TABLET (FP) PO SCH (21:25)
[2016-10-08] MEDS: INSULIN SLIDING SCALE (NOVOLOG) 1 VIAL SQ SCH ×6 (01:42→21:49)
[2016-10-08] MEDS: AMPICILLIN NA/SULBACTAM NA 100 ML IVPB SCH ×4 (03:14→22:08)
[2016-10-08] MEDS: LACTOBACILLUS ACIDOPHILUS 1 EACH TAB (FP) PO SCH (09:42)
[2016-10-08] MEDS: MULTIVITAMINS (DAILY MVI) TABLET (FP) PO SCH (09:42)
[2016-10-08] MEDS: ZINC SULFATE 220 MG CAPSULE (FP) PO SCH (09:42)
[2016-10-08] MEDS: ASCORBIC ACID 500 MG TABLET (FP) PO SCH (09:43)
[2016-10-08] MEDS: PANTOPRAZOLE SODIUM 40 MG/100 ML PRE-DOCKED IVPB SCH (10:01)
[2016-10-08] MEDS: HEPARIN NA (PORCINE) 5,000 UNITS/ML 1ML VIAL SQ SCH ×2 (10:01→21:05)
[2016-10-08] MEDS: NYSTATIN POWDER 100,000 UNITS/GM - 15 GM TOPICAL POWDER TP SCH (10:02)
[2016-10-08] MEDS: levETIRAcetam 500 MG/5 ML INJECTION VIAL IVPB SCH ×2 (10:57→22:37)
--- NOTE | 2016-10-08 11:03 | PN ---
Progress Note (short form) - Note Progress Note: Drowsy but arousable. No significant change in overall condition. NAD on 3 L NC O2. Intake & Output 10/05/16 10/06/16 10/07/16 10/08/16 23:59 23:59 23:59 23:59 Intake Total 1500 2450 1750 700 Balance 1500 2450 1750 700 Weight 127 lb 4 oz 123 lb 9.6 oz 123 lb 2 oz 122 lb 1 oz Last Vital Signs Temp Pulse Resp BP Pulse Ox 97.8 F 79 20 125/55 98 10/08/16 09:43 10/08/16 09:43 10/08/16 09:43 10/08/16 09:43 10/07/16 21:00 Active Medications Ascorbic Acid (Vitamin C -) 500 mg PO BID [facility] Last Admin: 10/08/16 09:43 Dose: Not Given Atorvastatin Calcium (Lipitor -) 40 mg PO HS [facility] Last Admin: 10/07/16 21:25 Dose: Not Given Heparin Sodium (Porcine) (Heparin -) 5,000 unit SQ BID [facility] Last Admin: 10/08/16 10:01 Dose: 5,000 unit Dextrose/Sodium Chloride (D5-1/2ns -) 1,000 mls @ 50 mls/hr IV ASDIR [facility] Last Admin: 10/07/16 10:47 Dose: 50 mls/hr Ampicillin Sodium/Sulbactam Sodium (Unasyn 1.5 Gm (Pre-Docked)) 100 mls @ 200 mls/hr IVPB Q6H-IV [facility] Last Admin: 10/08/16 09:39 Dose: 200 mls/hr Insulin Aspart (Novolog Vial Sliding Scale -) 1 vial SQ Q4HPO [facility] PRN Reason: Protocol Last Admin: 10/08/16 06:20 Dose: Not Given Lactobacillus Acidophilus (Bacid -) 1 tab PO BID [facility] Last Admin: 10/08/16 09:42 Dose: Not Given Levetiracetam (Keppra Injection -) 500 mg IVPB BID [facility] Last Admin: 10/08/16 10:57 Dose: 500 mg Magnesium Oxide (Mag-Ox -) 800 mg PO BID [facility] Multivitamins/Minerals/Vitamin C (Tab-A-Vit -) 1 tab PO DAILY [facility] Last Admin: 10/08/16 09:42 Dose: Not Given Nystatin (Nystop Powder -) 1 applic TP DAILY [facility] Last Admin: 10/08/16 10:02 Dose: 1 applic Pantoprazole Sodium (Protonix 40mg Ivpb (Pre-Docked)) 40 mg IVPB DAILY [facility] Last Admin: 10/08/16 10:01 Dose: 40 mg Zinc Sulfate (Orazinc -) 220 mg PO DAILY [facility] Last Admin: 10/08/16 09:42 Dose: Not Given Gen: Drowsy but arousable Heart: RRR Lung: scattered rhonchi Abd: soft, nontender Ext: trace edema Laboratory Results - last 24 hr 10/07/16 10/07/16 10/07/16 10:45 14:21 17:48 POC Glucometer 182 183 206 10/07/16 10/08/16 10/08/16 21:26 01:39 05:26 POC Glucometer 162 193 175 A/P UTI s/p Septic Shock Sacral Decubitus Ulcer s/p Acute Respiratory Failure Seizure Disorder DM - Aspiration precautions - wound care - morphine for comfort - DVT prophylaxis - DNR/DNI - Supportive measures Dr Naidu
[2016-10-08] MEDS: DEXTROSE 5%-0.45% SALINE 1,000 ML IV SCH (11:17)
--- NOTE | 2016-10-08 11:34 | PN ---
Progress Note, Physician History of Present Illness: Pt. was transferred to the floor from ICU, off BIPAP. Pt. still not able to tolerate PO intake. Pt. cannot provide ROS , secondary of dementia. - Current Medication List Current Medications: Active Medications Ascorbic Acid (Vitamin C -) 500 mg PO BID [facility] Last Admin: 10/08/16 09:43 Dose: Not Given Atorvastatin Calcium (Lipitor -) 40 mg PO HS [facility] Last Admin: 10/07/16 21:25 Dose: Not Given Heparin Sodium (Porcine) (Heparin -) 5,000 unit SQ BID [facility] Last Admin: 10/08/16 10:01 Dose: 5,000 unit Dextrose/Sodium Chloride (D5-1/2ns -) 1,000 mls @ 50 mls/hr IV ASDIR [facility] Last Admin: 10/08/16 11:17 Dose: Not Given Ampicillin Sodium/Sulbactam Sodium (Unasyn 1.5 Gm (Pre-Docked)) 100 mls @ 200 mls/hr IVPB Q6H-IV [facility] Last Admin: 10/08/16 09:39 Dose: 200 mls/hr Insulin Aspart (Novolog Vial Sliding Scale -) 1 vial SQ Q4HPO [facility] PRN Reason: Protocol Last Admin: 10/08/16 11:16 Dose: 3 units Lactobacillus Acidophilus (Bacid -) 1 tab PO BID [facility] Last Admin: 10/08/16 09:42 Dose: Not Given Levetiracetam (Keppra Injection -) 500 mg IVPB BID [facility] Last Admin: 10/08/16 10:57 Dose: 500 mg Magnesium Oxide (Mag-Ox -) 800 mg PO BID [facility] Multivitamins/Minerals/Vitamin C (Tab-A-Vit -) 1 tab PO DAILY [facility] Last Admin: 10/08/16 09:42 Dose: Not Given Nystatin (Nystop Powder -) 1 applic TP DAILY [facility] Last Admin: 10/08/16 10:02 Dose: 1 applic Pantoprazole Sodium (Protonix 40mg Ivpb (Pre-Docked)) 40 mg IVPB DAILY [facility] Last Admin: 10/08/16 10:01 Dose: 40 mg Zinc Sulfate (Orazinc -) 220 mg PO DAILY [facility] Last Admin: 10/08/16 09:42 Dose: Not Given - Objective Vital Signs: Vital Signs Temperature 97.8 F 10/08/16 09:43 Pulse Rate 79 10/08/16 09:43 Respiratory Rate 20 10/08/16 09:43 Blood Pressure 125/55 10/08/16 09:43 O2 Sat by Pulse Oximetry (%) 98 10/07/16 21:00 Constitutional: Yes: No Distress Cardiovascular: Yes: Regular Rate and Rhythm, S1, S2 Respiratory: Yes: Regular. No: Rales Gastrointestinal: Yes: Normal Bowel Sounds, Soft Edema: No Neurological: Yes: Alert Labs: CBC, BMP 10/07/16 07:50 INR, PTT INR 1.23 (0.82-1.09) H 09/30/16 11:30 Problem List - Problems (1) Septic shock Assessment/Plan: IV abtx- per ID IVF Admitted to ICU, now on regular floor ID consult and f/u appreciated CCM consult appreciated Pt is off pressor. Code(s): A41.9 - SEPSIS, UNSPECIFIED ORGANISM R65.21 - SEVERE SEPSIS WITH SEPTIC SHOCK (2) UTI (urinary tract infection) Assessment/Plan: IV abtx per ID. Code(s): N39.0 - URINARY TRACT INFECTION, SITE NOT SPECIFIED Qualifiers: Urinary tract infection type: catheter-associated UTI Indwelling urinary catheter type: indwelling urethral catheter Encounter type: initial encounter Qualified Code(s): T83.511A - Infection and inflammatory reaction due to indwelling urethral catheter, initial encounter; N39.0 - Urinary tract infection, site not specified (3) Ulcer of sacral region, stage 4 Assessment/Plan: Chronic Hx/o OM Code(s): L89.154 - PRESSURE ULCER OF SACRAL REGION, STAGE 4 (4) Diabetes mellitus Assessment/Plan: BGM and Coverage only. BGM coverage was changed. Cannot tolerate PO- swallow eval. appreciated. Code(s): E11.9 - TYPE 2 DIABETES MELLITUS WITHOUT COMPLICATIONS Qualifiers: Diabetes mellitus type: other specified (including FERCHO) (5) Endocarditis Assessment/Plan: Hx/o endocarditis Code(s): I38 - ENDOCARDITIS, VALVE UNSPECIFIED (6) Seizure Assessment/Plan: on IV Keppra. Pt. is very anxious at baseline, with arm/ hand tremor at baseline Code(s): R56.9 - UNSPECIFIED CONVULSIONS Qualifiers: Convulsion type: unspecified Qualified Code(s): R56.9 - Unspecified convulsions (7) Elevated liver enzymes Assessment/Plan: Probable secondary to sepsis. Improving. To monitor LFTs Code(s): R74.8 - ABNORMAL LEVELS OF OTHER SERUM ENZYMES (8) Acute renal insufficiency Code(s): N28.9 - DISORDER OF KIDNEY AND URETER, UNSPECIFIED (9) Acute respiratory failure Assessment/Plan: Improving, off BIPAP To monitor Code(s): J96.00 - ACUTE RESPIRATORY FAILURE, UNSP W HYPOXIA OR HYPERCAPNIA (10) Hypokalemia Code(s): E87.6 - HYPOKALEMIA (11) Hypomagnesemia Assessment/Plan: To replete Mg ( IV) Code(s): E83.42 - HYPOMAGNESEMIA (12) Hypophosphatemia Assessment/Plan: To replete Ph; to monitor. Code(s): E83.39 - OTHER DISORDERS OF PHOSPHORUS METABOLISM Assessment/Plan AM labs. If pt. would not tolerate PO in near future, per HCP, might go on Hospice. Case was d/w Mr. Geronimo (pt.'s HCP); he wants Mrs. Clayton to evaluate for Hospice, but to continue current treatment until evaluation takes place.
[2016-10-08 11:47] LABS: CALCIUM 7.1 mg/dL (8.5-10.1); CREATININE 0.2 mg/dL (0.55-1.02); MAGNESIUM 1.4 mg/dL (1.8-2.4); PHOSPHOROUS 1.7 mg/dL (2.5-4.9)
[2016-10-08] MEDS ORDERED: MAGNESIUM SULF 50% (8.12 MEQ/2 ML-1 GM VIAL) IVPB ONE (13:15)
[2016-10-08] MEDS ORDERED: POTASSIUM PHOSPHATE 30 MM in DEXTROSE 5%-WATER - 500 ML IVPB ONE (13:30)
[2016-10-09] MEDS ORDERED: PT OWN MED DRAWER 7, Y5N ONE (01:33)
[2016-10-09] MEDS: DEXTROSE 5%-0.45% SALINE 1,000 ML IV SCH ×3 (01:57→22:25)
[2016-10-09] MEDS: INSULIN SLIDING SCALE (NOVOLOG) 1 VIAL SQ SCH ×4 (02:00→15:02)
[2016-10-09] MEDS: AMPICILLIN NA/SULBACTAM NA 100 ML IVPB SCH ×3 (02:09→16:03)
[2016-10-09 07:53] LABS: CALCIUM 7.3 mg/dL (8.5-10.1); CREATININE 0.2 mg/dL (0.55-1.02); MAGNESIUM 1.5 mg/dL (1.8-2.4); PHOSPHOROUS 2.3 mg/dL (2.5-4.9)
[2016-10-09] MEDS: levETIRAcetam 500 MG/5 ML INJECTION VIAL IVPB SCH ×2 (09:26→21:14)
[2016-10-09] MEDS: HEPARIN NA (PORCINE) 5,000 UNITS/ML 1ML VIAL SQ SCH (09:27)
[2016-10-09] MEDS ORDERED: MAGNESIUM SULF 50% (8.12 MEQ/2 ML-1 GM VIAL) IVPB ONE (09:30)
[2016-10-09] MEDS ORDERED: POTASSIUM PHOSPHATE 30 MM in SODIUM CHLORIDE 500 ML IVPB ONE (09:45)
[2016-10-09] MEDS: PANTOPRAZOLE SODIUM 40 MG/100 ML PRE-DOCKED IVPB SCH (10:29)
[2016-10-09] MEDS: NYSTATIN POWDER 100,000 UNITS/GM - 15 GM TOPICAL POWDER TP SCH (10:32)
--- NOTE | 2016-10-09 12:44 | PN ---
Progress Note (short form) - Note Progress Note: No significant change in overall condition. Remains afebrile. NAD on 3 L NC O2. Intake & Output 10/06/16 10/07/16 10/08/16 10/09/16 23:59 23:59 23:59 23:59 Intake Total 2450 1750 1450 600 Balance 2450 1750 1450 600 Weight 123 lb 9.6 oz 123 lb 2 oz 122 lb 1 oz 120 lb 3.2 oz Last Vital Signs Temp Pulse Resp BP Pulse Ox 96.8 F L 54 L 20 104/56 100 10/09/16 09:31 10/09/16 09:31 10/09/16 09:31 10/09/16 09:31 10/08/16 21:00 Active Medications Heparin Sodium (Porcine) (Heparin -) 5,000 unit SQ BID [facility] Last Admin: 10/09/16 09:27 Dose: 5,000 unit Dextrose/Sodium Chloride (D5-1/2ns -) 1,000 mls @ 50 mls/hr IV ASDIR [facility] Last Admin: 10/09/16 10:27 Dose: Not Given Ampicillin Sodium/Sulbactam Sodium (Unasyn 1.5 Gm (Pre-Docked)) 100 mls @ 200 mls/hr IVPB Q6H-IV [facility] Last Admin: 10/09/16 08:48 Dose: 200 mls/hr Potassium Phosphate 30 mm/ (Sodium Chloride) 510 mls @ 85 mls/hr IVPB ONCE ONE Stop: 10/09/16 15:44 Last Admin: 10/09/16 10:57 Dose: 85 mls/hr Insulin Aspart (Novolog Vial Sliding Scale -) 1 vial SQ Q4HPO [facility] PRN Reason: Protocol Last Admin: 10/09/16 11:03 Dose: Not Given Levetiracetam (Keppra Injection -) 500 mg IVPB BID [facility] Last Admin: 10/09/16 09:26 Dose: 500 mg Nystatin (Nystop Powder -) 1 applic TP DAILY [facility] Last Admin: 10/09/16 10:32 Dose: 1 applic Pantoprazole Sodium (Protonix 40mg Ivpb (Pre-Docked)) 40 mg IVPB DAILY [facility] Last Admin: 10/09/16 10:29 Dose: 40 mg Gen: Drowsy but arousable Heart: RRR Lung: scattered rhonchi Abd: soft, nontender Ext: trace edema Laboratory Results - last 24 hr 10/08/16 10/08/16 10/08/16 15:08 17:51 21:03 Sodium Potassium Chloride Carbon Dioxide Anion Gap BUN Creatinine POC Glucometer 102 128 165 Random Glucose Calcium Phosphorus Magnesium 10/09/16 10/09/16 10/09/16 01:49 05:41 06:20 Sodium 141 Potassium 4.0 Chloride 101 Carbon Dioxide 33 H Anion Gap 7 L BUN 2 L* D Creatinine 0.2 L POC Glucometer 184 190 Random Glucose 203 H Calcium 7.3 L Phosphorus 2.3 L D Magnesium 1.5 L 10/09/16 11:01 Sodium Potassium Chloride Carbon Dioxide Anion Gap BUN Creatinine POC Glucometer 177 Random Glucose Calcium Phosphorus Magnesium A/P UTI s/p Septic Shock Sacral Decubitus Ulcer s/p Acute Respiratory Failure Seizure Disorder DM - Aspiration precautions - wound care - morphine for comfort - DVT prophylaxis - DNR/DNI - Supportive measures Dr Naidu
[2016-10-09] MEDS ORDERED: morphine CARPU-JECT 2 MG/1 ML DISP.SYRIN IVPUSH PRN (15:46)
--- NOTE | 2016-10-09 18:21 | PN ---
Progress Note, Physician History of Present Illness: Pt. still not able to tolerate PO intake. Pt. cannot provide ROS , secondary of dementia. Pt was seen by and admitted to inpatient Hospice care. - Current Medication List Current Medications: Active Medications Dextrose/Sodium Chloride (D5-1/2ns -) 1,000 mls @ 50 mls/hr IV ASDIR [facility] Last Admin: 10/09/16 10:27 Dose: Not Given Levetiracetam (Keppra Injection -) 500 mg IVPB BID [facility] Last Admin: 10/09/16 09:26 Dose: 500 mg Morphine Sulfate (Morphine Injection -) 2 mg IVPUSH Q4H PRN PRN Reason: COMFORT Nystatin (Nystop Powder -) 1 applic TP DAILY [facility] Last Admin: 10/09/16 10:32 Dose: 1 applic - Objective Vital Signs: Vital Signs Temperature 99.3 F 10/09/16 17:30 Pulse Rate 80 10/09/16 17:30 Respiratory Rate 18 10/09/16 17:30 Blood Pressure 118/62 10/09/16 17:30 O2 Sat by Pulse Oximetry (%) 98 10/09/16 09:00 Constitutional: Yes: No Distress, Calm Cardiovascular: Yes: Regular Rate and Rhythm, S1, S2 Respiratory: Yes: Regular, CTA Bilaterally. No: Rales Gastrointestinal: Yes: Normal Bowel Sounds, Soft. No: Tenderness Edema: No Neurological: Yes: Alert Labs: CBC, BMP 10/07/16 07:50 10/09/16 06:20 INR, PTT INR 1.23 (0.82-1.09) H 09/30/16 11:30 Problem List - Problems (1) Hospice care patient Assessment/Plan: To keep pt. comfortable. To DC BGM, daily labs. Morphine PRN for comfort (2) Septic shock Assessment/Plan: IV abtx- per ID IVF Admitted to ICU, now on regular floor ID consult and f/u appreciated CCM consult appreciated Pt is off pressor. Code(s): A41.9 - SEPSIS, UNSPECIFIED ORGANISM R65.21 - SEVERE SEPSIS WITH SEPTIC SHOCK (3) UTI (urinary tract infection) Assessment/Plan: IV abtx per ID. Code(s): N39.0 - URINARY TRACT INFECTION, SITE NOT SPECIFIED Qualifiers: Urinary tract infection type: catheter-associated UTI Indwelling urinary catheter type: indwelling urethral catheter Encounter type: initial encounter Qualified Code(s): T83.511A - Infection and inflammatory reaction due to indwelling urethral catheter, initial encounter; N39.0 - Urinary tract infection, site not specified (4) Ulcer of sacral region, stage 4 Assessment/Plan: Chronic Hx/o OM Code(s): L89.154 - PRESSURE ULCER OF SACRAL REGION, STAGE 4 (5) Diabetes mellitus Assessment/Plan: Hospice care. BGM's were DC'ed Code(s): E11.9 - TYPE 2 DIABETES MELLITUS WITHOUT COMPLICATIONS Qualifiers: Diabetes mellitus type: other specified (including FERCHO) (6) Endocarditis Assessment/Plan: Hx/o endocarditis Code(s): I38 - ENDOCARDITIS, VALVE UNSPECIFIED (7) Seizure Assessment/Plan: on IV Keppra. Pt. is very anxious at baseline, with arm/ hand tremor at baseline Code(s): R56.9 - UNSPECIFIED CONVULSIONS Qualifiers: Convulsion type: unspecified Qualified Code(s): R56.9 - Unspecified convulsions (8) Elevated liver enzymes Assessment/Plan: Probable secondary to sepsis. Improving. Code(s): R74.8 - ABNORMAL LEVELS OF OTHER SERUM ENZYMES (9) Acute renal insufficiency Code(s): N28.9 - DISORDER OF KIDNEY AND URETER, UNSPECIFIED (10) Acute respiratory failure Assessment/Plan: Improved, off BIPAP To monitor Code(s): J96.00 - ACUTE RESPIRATORY FAILURE, UNSP W HYPOXIA OR HYPERCAPNIA (11) Hypokalemia Assessment/Plan: Corrected; to monitor. Code(s): E87.6 - HYPOKALEMIA (12) Hypomagnesemia Assessment/Plan: To replete Mg ( IV) Code(s): E83.42 - HYPOMAGNESEMIA (13) Hypophosphatemia Assessment/Plan: To replete Ph. Code(s): E83.39 - OTHER DISORDERS OF PHOSPHORUS METABOLISM
[2016-10-10] MEDS: NYSTATIN POWDER 100,000 UNITS/GM - 15 GM TOPICAL POWDER TP SCH (09:25)
[2016-10-10] MEDS: levETIRAcetam 500 MG/5 ML INJECTION VIAL IVPB SCH ×2 (09:25→23:30)
--- NOTE | 2016-10-10 10:15 | PN ---
Progress Note, Physician History of Present Illness: Pt. cannot provide ROS , secondary of dementia. Pt was seen by and admitted to inpatient Hospice care. Pt. is not able to tolerate PO intake. - Current Medication List Current Medications: Active Medications Dextrose/Sodium Chloride (D5-1/2ns -) 1,000 mls @ 50 mls/hr IV ASDIR [facility] Last Admin: 10/09/16 22:25 Dose: 50 mls/hr Levetiracetam (Keppra Injection -) 500 mg IVPB BID [facility] Last Admin: 10/10/16 09:25 Dose: 500 mg Morphine Sulfate (Morphine Injection -) 2 mg IVPUSH Q4H PRN PRN Reason: COMFORT Nystatin (Nystop Powder -) 1 applic TP DAILY [facility] Last Admin: 10/10/16 09:25 Dose: 1 applic - Objective Vital Signs: Vital Signs Temperature 97.6 F 10/10/16 06:25 Pulse Rate 70 10/10/16 06:25 Respiratory Rate 20 10/10/16 06:25 Blood Pressure 125/66 10/10/16 06:25 O2 Sat by Pulse Oximetry (%) 98 10/09/16 19:58 Constitutional: Yes: No Distress, Calm Cardiovascular: Yes: Regular Rate and Rhythm, S1, S2 Respiratory: Yes: Regular, CTA Bilaterally. No: Rales Gastrointestinal: Yes: Normal Bowel Sounds, Soft. No: Distention Edema: No Neurological: Yes: Alert Labs: CBC, BMP 10/07/16 07:50 10/09/16 06:20 INR, PTT INR 1.23 (0.82-1.09) H 09/30/16 11:30 Problem List - Problems (1) Hospice care patient Assessment/Plan: To keep pt. comfortable. IV Keppra Morphine PRN for comfort (2) Septic shock Assessment/Plan: Improved. Admitted to ICU, now on regular floor ID consult and f/u appreciated CCM consult appreciated Pt. now on Hospice care Code(s): A41.9 - SEPSIS, UNSPECIFIED ORGANISM R65.21 - SEVERE SEPSIS WITH SEPTIC SHOCK (3) UTI (urinary tract infection) Assessment/Plan: s/p IV abtx. Pt. now on Hospice care. Code(s): N39.0 - URINARY TRACT INFECTION, SITE NOT SPECIFIED Qualifiers: Urinary tract infection type: catheter-associated UTI Indwelling urinary catheter type: indwelling urethral catheter Encounter type: initial encounter Qualified Code(s): T83.511A - Infection and inflammatory reaction due to indwelling urethral catheter, initial encounter; N39.0 - Urinary tract infection, site not specified (4) Ulcer of sacral region, stage 4 Code(s): L89.154 - PRESSURE ULCER OF SACRAL REGION, STAGE 4 (5) Diabetes mellitus Assessment/Plan: Hospice care. BGM's were DC'ed Code(s): E11.9 - TYPE 2 DIABETES MELLITUS WITHOUT COMPLICATIONS Qualifiers: Diabetes mellitus type: other specified (including FERCHO) (6) Endocarditis Assessment/Plan: Hx/o endocarditis Code(s): I38 - ENDOCARDITIS, VALVE UNSPECIFIED (7) Seizure Assessment/Plan: on IV Keppra. Pt. now on Hospice care. Pt. is very anxious at baseline, with arm/ hand tremor at baseline Code(s): R56.9 - UNSPECIFIED CONVULSIONS Qualifiers: Convulsion type: unspecified Qualified Code(s): R56.9 - Unspecified convulsions (8) Elevated liver enzymes Code(s): R74.8 - ABNORMAL LEVELS OF OTHER SERUM ENZYMES (9) Acute renal insufficiency Code(s): N28.9 - DISORDER OF KIDNEY AND URETER, UNSPECIFIED (10) Acute respiratory failure Code(s): J96.00 - ACUTE RESPIRATORY FAILURE, UNSP W HYPOXIA OR HYPERCAPNIA (11) Hypokalemia Assessment/Plan: Pt. now on Hospice care (no labs are done anymore). Code(s): E87.6 - HYPOKALEMIA (12) Hypomagnesemia Assessment/Plan: Pt. now on Hospice care (no labs are done anymore). Code(s): E83.42 - HYPOMAGNESEMIA (13) Hypophosphatemia Assessment/Plan: Pt. now on Hospice care (no labs are done anymore). Code(s): E83.39 - OTHER DISORDERS OF PHOSPHORUS METABOLISM Assessment/Plan To keep pt. comfortable.
--- NOTE | 2016-10-10 12:50 | PN ---
Progress Note, [employer] - Note Progress Note: Admission emr note "History of Present Illness: Pt is a resident of [facility], with known PMHx significant for Stage 4 sacral ulcer, sacral OM, DM, Advanced Dementia noticed this AM to be unresponsive and have a low SBP ( 80's). Pt came to ER where was found to have Temp of 106, low SBP, tachypneic ( my evaluation 40 breaths/ min.), unresponsive." Pt now on in pt hospice. NPO. Last mbs 02/2016 with trace aspiration on nectar. More alert. Briefly established eye contact. Readily accepting applesauce on a tsp, sipping it from the spoon although unable to open mouth. Brisk swallow response without overt signs of aspiration. Rec; Thinned out puree (mixed with soup or ensure) Shiner thick liquid on a tsp only. HOB elevated. Feed slowly, 1/2 tsp at a time. Monitor tolerance
[2016-10-10] MEDS: DEXTROSE 5%-0.45% SALINE 1,000 ML IV SCH (18:16)
[2016-10-11] MEDS: levETIRAcetam 500 MG/5 ML INJECTION VIAL IVPB SCH ×2 (09:06→21:02)
[2016-10-11] MEDS: NYSTATIN POWDER 100,000 UNITS/GM - 15 GM TOPICAL POWDER TP SCH (09:06)
--- NOTE | 2016-10-11 11:04 | PN ---
Progress Note, Physician Chief Complaint: on 6s, awake alert NAD meds tests and consults reviewed - Current Medication List Current Medications: Active Medications Dextrose/Sodium Chloride (D5-1/2ns -) 1,000 mls @ 50 mls/hr IV ASDIR [facility] Last Admin: 10/10/16 18:16 Dose: 50 mls/hr Levetiracetam (Keppra Injection -) 500 mg IVPB BID [facility] Last Admin: 10/11/16 09:06 Dose: 500 mg Morphine Sulfate (Morphine Injection -) 2 mg IVPUSH Q4H PRN PRN Reason: COMFORT Nystatin (Nystop Powder -) 1 applic TP DAILY [facility] Last Admin: 10/11/16 09:06 Dose: 1 applic - Objective Vital Signs: Vital Signs Temperature 97.8 F 10/11/16 10:00 Pulse Rate 64 10/11/16 10:00 Respiratory Rate 15 10/11/16 10:00 Blood Pressure 110/65 10/11/16 10:00 O2 Sat by Pulse Oximetry (%) 98 10/09/16 19:58 Constitutional: Yes: No Distress, Calm Eyes: Yes: Conjunctiva Clear HENT: Yes: Atraumatic Neck: Yes: Supple Cardiovascular: Yes: Regular Rate and Rhythm Respiratory: Yes: Diminished Gastrointestinal: Yes: Soft. No: Distention Musculoskeletal: No: Joint Swelling Extremities: No: Cold, Cool Edema: No Integumentary: No: Rash, Venous Stasis Changes Wound/Incision: Yes: Other (sacral wound stage 3) Neurological: Yes: Alert. No: WNL (functional quadriplegia), Oriented Psychiatric: Yes: Alert. No: Oriented Labs: CBC, BMP 10/07/16 07:50 10/09/16 06:20 INR, PTT INR 1.23 (0.82-1.09) H 09/30/16 11:30 - ....Imaging Other: Report Reviewed Assessment/Plan s/p UTI, s/p Septic Shock Sacral Decubitus Ulcer s/p Acute Respiratory Failure Seizure Disorder DM, NHR, unresponsive ATB per ID; - Aspiration precautions - wound care - morphine for comfort - DVT prophylaxis - DNR/DNI poor prognosis - Supportive measures HOSPICE care and palliative eval in progress
--- NOTE | 2016-10-11 12:39 | PN ---
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 Pt is accepted small amounts breakfast time, as she waas sleepy, but waas reported to do well with lunch. Ensure compact may be accepted more readily. Mix puree/pudding with liquid to improve viscosity so that pt can sip it off the spoon.
--- NOTE | 2016-10-11 15:16 | PN ---
Progress Note, Physician History of Present Illness: pulmonary comfortable,nad,-dyspnea,-tachypnea - Current Medication List Current Medications: Active Medications Dextrose/Sodium Chloride (D5-1/2ns -) 1,000 mls @ 50 mls/hr IV ASDIR [facility] Last Admin: 10/10/16 18:16 Dose: 50 mls/hr Levetiracetam (Keppra Injection -) 500 mg IVPB BID [facility] Last Admin: 10/11/16 09:06 Dose: 500 mg Morphine Sulfate (Morphine Injection -) 2 mg IVPUSH Q4H PRN PRN Reason: COMFORT Nystatin (Nystop Powder -) 1 applic TP DAILY [facility] Last Admin: 10/11/16 09:06 Dose: 1 applic - Objective Vital Signs: Vital Signs Temperature 98.7 F 10/11/16 15:08 Pulse Rate 68 10/11/16 15:08 Respiratory Rate 17 10/11/16 15:08 Blood Pressure 110/65 10/11/16 10:00 O2 Sat by Pulse Oximetry (%) 98 10/09/16 19:58 Constitutional: Yes: Well Nourished, Calm Eyes: Yes: WNL HENT: Yes: WNL Neck: Yes: WNL Cardiovascular: Yes: Regular Rate and Rhythm, S1, S2 Respiratory: Yes: Diminished (poor inspiratory effort) Gastrointestinal: Yes: Normal Bowel Sounds, Soft Extremities: Yes: WNL Edema: No Labs: CBC, BMP 10/07/16 07:50 10/09/16 06:20 INR, PTT INR 1.23 (0.82-1.09) H 09/30/16 11:30 Problem List - Problems (1) Acute respiratory failure Code(s): J96.00 - ACUTE RESPIRATORY FAILURE, UNSP W HYPOXIA OR HYPERCAPNIA (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 - OTHER DISORDERS OF PHOSPHORUS METABOLISM (3) Hypophosphatemia Code(s): E83.39 - OTHER DISORDERS OF PHOSPHORUS METABOLISM (4) Septic shock Code(s): A41.9 - SEPSIS, UNSPECIFIED ORGANISM R65.21 - SEVERE SEPSIS WITH SEPTIC SHOCK (5) Decubital ulcer Code(s): L89.90 - PRESSURE ULCER OF UNSPECIFIED SITE, UNSPECIFIED STAGE Qualifiers: Pressure ulcer stage: stage IV Qualified Code(s): L89.94 - Pressure ulcer of unspecified site, stage 4 (6) Dementia Code(s): F03.90 - UNSPECIFIED DEMENTIA WITHOUT BEHAVIORAL DISTURBANCE Qualifiers: Dementia type: unspecified type Dementia behavioral disturbance: without behavioral disturbance Qualified Code(s): F03.90 - Unspecified dementia without behavioral disturbance (7) Seizure Code(s): R56.9 - UNSPECIFIED CONVULSIONS Qualifiers: Convulsion type: unspecified Qualified Code(s): R56.9 - Unspecified convulsions Assessment/Plan /P UTI s/p Septic Shock Sacral Decubitus Ulcer s/p Acute Respiratory Failure Seizure Disorder DM - wound care - morphine for comfort - DVT prophylaxis DR BUCHANAN
[2016-10-12] MEDS: NYSTATIN POWDER 100,000 UNITS/GM - 15 GM TOPICAL POWDER TP SCH (09:25)
[2016-10-12] MEDS: levETIRAcetam 500 MG/5 ML INJECTION VIAL IVPB SCH ×2 (09:25→21:47)
--- NOTE | 2016-10-12 09:34 | PN ---
Progress Note, Physician Chief Complaint: in bed was awake earlier per staff, ate a little (few sips) currently sleeping; not in distress - Current Medication List Current Medications: Active Medications Dextrose/Sodium Chloride (D5-1/2ns -) 1,000 mls @ 50 mls/hr IV ASDIR [facility] Last Admin: 10/10/16 18:16 Dose: 50 mls/hr Levetiracetam (Keppra Injection -) 500 mg IVPB BID [facility] Last Admin: 10/12/16 09:25 Dose: 500 mg Morphine Sulfate (Morphine Injection -) 2 mg IVPUSH Q4H PRN PRN Reason: COMFORT Nystatin (Nystop Powder -) 1 applic TP DAILY [facility] Last Admin: 10/12/16 09:25 Dose: 1 applic - Objective Vital Signs: Vital Signs Temperature 97.5 F L 10/12/16 05:36 Pulse Rate 62 10/12/16 05:36 Respiratory Rate 18 10/12/16 05:36 Blood Pressure 105/66 10/12/16 05:36 O2 Sat by Pulse Oximetry (%) 98 10/09/16 19:58 Constitutional: Yes: No Distress Eyes: Yes: Conjunctiva Clear HENT: Yes: Atraumatic Neck: Yes: Supple Cardiovascular: Yes: Regular Rate and Rhythm Respiratory: Yes: Diminished Gastrointestinal: Yes: Soft. No: Distention Genitourinary: No: Hematuria Musculoskeletal: No: Joint Stiffness Extremities: No: Cold, Cool Edema: No Integumentary: No: Rash, Venous Stasis Changes Neurological: No: WNL (functional quadriplegia), Alert, Oriented Psychiatric: No: Alert, Oriented, Agitated Labs: CBC, BMP 10/07/16 07:50 10/09/16 06:20 INR, PTT INR 1.23 (0.82-1.09) H 09/30/16 11:30 - ....Imaging Other: Report Reviewed Assessment/Plan s/p UTI, s/p Septic Shock Sacral Decubitus Ulcer s/p Acute Respiratory Failure Seizure Disorder DM, NHR, unresponsive ATB per ID; - Aspiration precautions - wound care - morphine for comfort - DVT prophylaxis - DNR/DNI poor prognosis - Supportive measures HOSPICE care and palliative eval in progress; per CM pt accepted for hospice on 10/09 and is inpt hospice since then
--- NOTE | 2016-10-12 11:35 | PN ---
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 Pt is on hospice, with po intake provided, as tolerated, for quality of life at endstage. No congestion.Comfort care.
--- NOTE | 2016-10-13 09:59 | PN ---
Progress Note, Physician History of Present Illness: Pt. cannot provide ROS , secondary of dementia. Pt is admitted to inpatient Hospice care. Pt. is not able to consistently tolerate PO intake (case was reviewed with pt.' s nurse- Maggy). - Current Medication List Current Medications: Active Medications Dextrose/Sodium Chloride (D5-1/2ns -) 1,000 mls @ 50 mls/hr IV ASDIR [facility] Last Admin: 10/10/16 18:16 Dose: 50 mls/hr Levetiracetam (Keppra Injection -) 500 mg IVPB BID [facility] Last Admin: 10/12/16 21:47 Dose: 500 mg Morphine Sulfate (Morphine Injection -) 2 mg IVPUSH Q4H PRN PRN Reason: COMFORT Nystatin (Nystop Powder -) 1 applic TP DAILY [facility] Last Admin: 10/12/16 09:25 Dose: 1 applic - Objective Vital Signs: Vital Signs Temperature 97.4 F L 10/13/16 09:38 Pulse Rate 83 10/13/16 09:38 Respiratory Rate 20 10/13/16 09:38 Blood Pressure 128/70 10/13/16 09:38 O2 Sat by Pulse Oximetry (%) 97 10/12/16 21:00 Constitutional: Yes: No Distress, Calm Cardiovascular: Yes: Regular Rate and Rhythm, S1, S2 Respiratory: Yes: Regular, Other (coarse at bases). No: Rales Gastrointestinal: Yes: Normal Bowel Sounds, Soft Edema: No Labs: CBC, BMP 10/07/16 07:50 10/09/16 06:20 INR, PTT INR 1.23 (0.82-1.09) H 09/30/16 11:30 Problem List - Problems (1) Hospice care patient Assessment/Plan: To keep pt. comfortable. IV Keppra Morphine PRN for comfort (2) Septic shock Assessment/Plan: Resolved- treated with IV abtx. Code(s): A41.9 - SEPSIS, UNSPECIFIED ORGANISM R65.21 - SEVERE SEPSIS WITH SEPTIC SHOCK (3) Acute respiratory failure Assessment/Plan: on O2 supplementation PRN Code(s): J96.00 - ACUTE RESPIRATORY FAILURE, UNSP W HYPOXIA OR HYPERCAPNIA (4) UTI (urinary tract infection) Assessment/Plan: treated with IV abtx. Code(s): N39.0 - URINARY TRACT INFECTION, SITE NOT SPECIFIED Qualifiers: Urinary tract infection type: catheter-associated UTI Indwelling urinary catheter type: indwelling urethral catheter Encounter type: initial encounter Qualified Code(s): T83.511A - Infection and inflammatory reaction due to indwelling urethral catheter, initial encounter; N39.0 - Urinary tract infection, site not specified (5) Ulcer of sacral region, stage 4 Assessment/Plan: Chronic Hx/o OM Code(s): L89.154 - PRESSURE ULCER OF SACRAL REGION, STAGE 4 (6) Diabetes mellitus Assessment/Plan: on HOspice care Code(s): E11.9 - TYPE 2 DIABETES MELLITUS WITHOUT COMPLICATIONS Qualifiers: Diabetes mellitus type: other specified (including FERCHO) (7) Endocarditis Assessment/Plan: HX/o endocarditis Code(s): I38 - ENDOCARDITIS, VALVE UNSPECIFIED (8) Seizure Assessment/Plan: on IV Keppra- cannot tolerate PO. Code(s): R56.9 - UNSPECIFIED CONVULSIONS Qualifiers: Convulsion type: unspecified Qualified Code(s): R56.9 - Unspecified convulsions
[2016-10-13] MEDS: DEXTROSE 5%-0.45% SALINE 1,000 ML IV SCH (10:14)
[2016-10-13] MEDS: levETIRAcetam 500 MG/5 ML INJECTION VIAL IVPB SCH ×2 (10:14→22:05)
[2016-10-13] MEDS: NYSTATIN POWDER 100,000 UNITS/GM - 15 GM TOPICAL POWDER TP SCH (10:14)
--- NOTE | 2016-10-13 12:49 | PN ---
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 Awake and accepting po intake intermittently, insufficient for nutritional needs. Toleratong :PO trials without signs of aspiration.
--- NOTE | 2016-10-13 13:06 | PN ---
Progress Note, Physician History of Present Illness: pulmonary alert,non-verbal,-resp distress - Current Medication List Current Medications: Active Medications Dextrose/Sodium Chloride (D5-1/2ns -) 1,000 mls @ 50 mls/hr IV ASDIR [facility] Last Admin: 10/13/16 10:14 Dose: 50 mls/hr Levetiracetam (Keppra Injection -) 500 mg IVPB BID [facility] Last Admin: 10/13/16 10:14 Dose: 500 mg Morphine Sulfate (Morphine Injection -) 2 mg IVPUSH Q4H PRN PRN Reason: COMFORT Nystatin (Nystop Powder -) 1 applic TP DAILY [facility] Last Admin: 10/13/16 10:14 Dose: 1 applic - Objective Vital Signs: Vital Signs Temperature 97.4 F L 10/13/16 09:38 Pulse Rate 77 10/13/16 11:48 Respiratory Rate 20 10/13/16 09:38 Blood Pressure 128/70 10/13/16 09:38 O2 Sat by Pulse Oximetry (%) 98 10/13/16 11:48 Constitutional: Yes: Calm, Thin, Other (non-verbal) Eyes: Yes: WNL HENT: Yes: WNL Neck: Yes: Supple Cardiovascular: Yes: Regular Rate and Rhythm, S1, S2 Respiratory: Yes: Diminished (poor inspiratory effort) Gastrointestinal: Yes: Normal Bowel Sounds, Soft Extremities: Yes: WNL Edema: No Labs: CBC, BMP 10/07/16 07:50 10/09/16 06:20 INR, PTT INR 1.23 (0.82-1.09) H 09/30/16 11:30 Problem List - Problems (1) Acute respiratory failure Code(s): J96.00 - ACUTE RESPIRATORY FAILURE, UNSP W HYPOXIA OR HYPERCAPNIA (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 - OTHER DISORDERS OF PHOSPHORUS METABOLISM (3) Hypophosphatemia Code(s): E83.39 - OTHER DISORDERS OF PHOSPHORUS METABOLISM (4) Septic shock Code(s): A41.9 - SEPSIS, UNSPECIFIED ORGANISM R65.21 - SEVERE SEPSIS WITH SEPTIC SHOCK (5) Decubital ulcer Code(s): L89.90 - PRESSURE ULCER OF UNSPECIFIED SITE, UNSPECIFIED STAGE Qualifiers: Pressure ulcer stage: stage IV Qualified Code(s): L89.94 - Pressure ulcer of unspecified site, stage 4 (6) Dementia Code(s): F03.90 - UNSPECIFIED DEMENTIA WITHOUT BEHAVIORAL DISTURBANCE Qualifiers: Dementia type: unspecified type Dementia behavioral disturbance: without behavioral disturbance Qualified Code(s): F03.90 - Unspecified dementia without behavioral disturbance (7) Seizure Code(s): R56.9 - UNSPECIFIED CONVULSIONS Qualifiers: Convulsion type: unspecified Qualified Code(s): R56.9 - Unspecified convulsions Assessment/Plan /P UTI s/p Septic Shock Sacral Decubitus Ulcer s/p Acute Respiratory Failure Seizure Disorder DM - wound care - morphine for comfort - DVT prophylaxis DR BUCHANAN
[2016-10-14] MEDS: DEXTROSE 5%-0.45% SALINE 1,000 ML IV SCH ×3 (05:47→10:58)
[2016-10-14] MEDS ORDERED: PT OWN MED DRAWER 7, Y5N ONE (10:53)
[2016-10-14] MEDS: levETIRAcetam 500 MG/5 ML INJECTION VIAL IVPB SCH ×2 (10:57→21:12)
[2016-10-14] MEDS: NYSTATIN POWDER 100,000 UNITS/GM - 15 GM TOPICAL POWDER TP SCH (10:59)
--- NOTE | 2016-10-14 11:26 | PN ---
Progress Note, Physician Chief Complaint: in bed awake alert NAD afebrile; eats poorly - Current Medication List Current Medications: Active Medications Dextrose/Sodium Chloride (D5-1/2ns -) 1,000 mls @ 50 mls/hr IV ASDIR [facility] Last Admin: 10/14/16 05:47 Dose: 50 mls/hr Levetiracetam (Keppra Injection -) 500 mg IVPB BID [facility] Last Admin: 10/13/16 22:05 Dose: 500 mg Morphine Sulfate (Morphine Injection -) 2 mg IVPUSH Q4H PRN PRN Reason: COMFORT Nystatin (Nystop Powder -) 1 applic TP DAILY [facility] Last Admin: 10/13/16 10:14 Dose: 1 applic - Objective Vital Signs: Vital Signs Temperature 97.3 F L 10/14/16 06:00 Pulse Rate 85 10/14/16 06:00 Respiratory Rate 16 10/14/16 06:00 Blood Pressure 132/68 10/14/16 06:00 O2 Sat by Pulse Oximetry (%) 98 10/13/16 21:00 Constitutional: Yes: No Distress, Calm Eyes: Yes: Conjunctiva Clear HENT: Yes: Atraumatic Neck: Yes: Supple Cardiovascular: Yes: Regular Rate and Rhythm Respiratory: Yes: Diminished Gastrointestinal: Yes: Soft. No: Distention Genitourinary: No: Hematuria Musculoskeletal: No: Joint Swelling Extremities: No: Cold, Cool Edema: No Integumentary: No: Rash, Venous Stasis Changes Neurological: Yes: WNL (functional quadriplegia), Alert. No: Oriented Psychiatric: Yes: Alert. No: Oriented, Agitated Labs: CBC, BMP 10/07/16 07:50 10/09/16 06:20 INR, PTT INR 1.23 (0.82-1.09) H 09/30/16 11:30 - ....Imaging Other: Report Reviewed Assessment/Plan s/p UTI, s/p Septic Shock Sacral Decubitus Ulcer s/p Acute Respiratory Failure Seizure Disorder DM, NHR, decreased po intake s/p ATB per ID; now off - Aspiration precautions - wound care - morphine for comfort - DVT prophylaxis - DNR/DNI poor prognosis - Supportive measures pt accepted for INPT hospice since 10/09
[2016-10-15] MEDS: DEXTROSE 5%-0.45% SALINE 1,000 ML IV SCH ×4 (03:15→21:07)
[2016-10-15] MEDS: NYSTATIN POWDER 100,000 UNITS/GM - 15 GM TOPICAL POWDER TP SCH (09:59)
[2016-10-15] MEDS: levETIRAcetam 500 MG/5 ML INJECTION VIAL IVPB SCH ×2 (09:59→21:07)
--- NOTE | 2016-10-15 10:42 | PN ---
Progress Note, Physician Chief Complaint: on 6s awake alert NAD afebrile, nonverbal; poor po intake; on IVF no labs x 1 week in inpt hospice care - Current Medication List Current Medications: Active Medications Dextrose/Sodium Chloride (D5-1/2ns -) 1,000 mls @ 50 mls/hr IV ASDIR [facility] Last Admin: 10/15/16 09:59 Dose: Not Given Levetiracetam (Keppra Injection -) 500 mg IVPB BID [facility] Last Admin: 10/15/16 09:59 Dose: 500 mg Morphine Sulfate (Morphine Injection -) 2 mg IVPUSH Q4H PRN PRN Reason: COMFORT Nystatin (Nystop Powder -) 1 applic TP DAILY [facility] Last Admin: 10/15/16 09:59 Dose: 1 applic - Objective Vital Signs: Vital Signs Temperature 97.6 F 10/15/16 06:00 Pulse Rate 62 10/15/16 06:00 Respiratory Rate 14 10/15/16 06:00 Blood Pressure 108/58 10/15/16 06:00 O2 Sat by Pulse Oximetry (%) 98 10/14/16 20:04 Constitutional: Yes: No Distress, Calm Eyes: Yes: Conjunctiva Clear HENT: Yes: Atraumatic Neck: Yes: Supple Cardiovascular: Yes: Regular Rate and Rhythm Respiratory: Yes: Diminished Gastrointestinal: Yes: Soft. No: Distention Genitourinary: No: Hematuria Musculoskeletal: No: Joint Stiffness, Joint Swelling Extremities: No: Cold, Cool Edema: No Integumentary: No: Rash Neurological: Yes: Alert. No: WNL (functional quadriplegia bedbound), Oriented Psychiatric: Yes: Alert. No: Oriented, Agitated Labs: CBC, BMP 10/07/16 07:50 10/09/16 06:20 INR, PTT INR 1.23 (0.82-1.09) H 09/30/16 11:30 - ....Imaging Other: Report Reviewed Assessment/Plan s/p UTI, s/p Septic Shock Sacral Decubitus Ulcer s/p Acute Respiratory Failure Seizure Disorder DM, NHR, decreased po intake s/p ATB per ID; now off - Aspiration precautions - wound care - morphine for comfort - DVT prophylaxis - DNR/DNI poor prognosis - Supportive measures [place] for [place] since 10/09
--- NOTE | 2016-10-16 08:42 | PN ---
Progress Note, Physician Chief Complaint: in bed awake alert NAD - Current Medication List Current Medications: Active Medications Dextrose/Sodium Chloride (D5-1/2ns -) 1,000 mls @ 50 mls/hr IV ASDIR [facility] Last Admin: 10/15/16 21:07 Dose: 50 mls/hr Levetiracetam (Keppra Injection -) 500 mg IVPB BID [facility] Last Admin: 10/15/16 21:07 Dose: 500 mg Morphine Sulfate (Morphine Injection -) 2 mg IVPUSH Q4H PRN PRN Reason: COMFORT Nystatin (Nystop Powder -) 1 applic TP DAILY [facility] Last Admin: 10/15/16 09:59 Dose: 1 applic - Objective Vital Signs: Vital Signs Temperature 97.7 F 10/16/16 06:00 Pulse Rate 95 H 10/16/16 06:00 Respiratory Rate 16 10/16/16 06:00 Blood Pressure 144/59 10/16/16 06:00 O2 Sat by Pulse Oximetry (%) 98 10/15/16 20:14 Constitutional: Yes: No Distress Eyes: Yes: Conjunctiva Clear HENT: Yes: Atraumatic Neck: Yes: Supple Cardiovascular: Yes: Regular Rate and Rhythm Respiratory: Yes: Diminished Gastrointestinal: Yes: Soft. No: Distention Genitourinary: No: Hematuria Musculoskeletal: No: Joint Swelling Extremities: No: Cold, Cool Edema: No Integumentary: No: Rash Neurological: Yes: Alert. No: Oriented Psychiatric: Yes: Alert. No: Oriented, Agitated Labs: CBC, BMP 10/07/16 07:50 10/09/16 06:20 INR, PTT INR 1.23 (0.82-1.09) H 09/30/16 11:30 - ....Imaging Other: Report Reviewed Assessment/Plan s/p UTI, s/p Septic Shock Sacral Decubitus Ulcer s/p Acute Respiratory Failure Seizure Disorder DM, NHR, decreased po intake - Aspiration precautions - wound care - morphine for comfort - DVT prophylaxis - DNR/DNI poor prognosis - Supportive measures pt accepted for INPT hospice since 10/09
[2016-10-16] MEDS: levETIRAcetam 500 MG/5 ML INJECTION VIAL IVPB SCH ×2 (09:56→22:43)
[2016-10-16] MEDS: NYSTATIN POWDER 100,000 UNITS/GM - 15 GM TOPICAL POWDER TP SCH (09:56)
--- NOTE | 2016-10-16 13:24 | PN ---
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 Nursing reports pt prefers vanilla over cyn and tolerates ensure at [place]. No reported congestion. Rec: trial of vanilla ensure, slowly, 1 sip at a time, seated upright. Monitor PO tolerance and pulmonary function.
--- NOTE | 2016-10-16 16:22 | PN ---
Progress Note, Physician History of Present Illness: pulmonary no change awake,non-verbal,--resp distress - Current Medication List Current Medications: Active Medications Dextrose/Sodium Chloride (D5-1/2ns -) 1,000 mls @ 50 mls/hr IV ASDIR [facility] Last Admin: 10/15/16 21:07 Dose: 50 mls/hr Levetiracetam (Keppra Injection -) 500 mg IVPB BID [facility] Last Admin: 10/16/16 09:56 Dose: 500 mg Morphine Sulfate (Morphine Injection -) 2 mg IVPUSH Q4H PRN PRN Reason: COMFORT Nystatin (Nystop Powder -) 1 applic TP DAILY [facility] Last Admin: 10/16/16 09:56 Dose: 1 applic - Objective Vital Signs: Vital Signs Temperature 97.8 F 10/16/16 14:02 Pulse Rate 80 10/16/16 14:02 Respiratory Rate 20 10/16/16 10:00 Blood Pressure 136/50 10/16/16 14:02 O2 Sat by Pulse Oximetry (%) 97 10/16/16 09:00 Constitutional: Yes: Well Nourished, Calm Eyes: Yes: WNL HENT: Yes: WNL Neck: Yes: WNL Cardiovascular: Yes: Regular Rate and Rhythm, S1, S2 Respiratory: Yes: Diminished (poor inspiratory effort) Gastrointestinal: Yes: Normal Bowel Sounds, Soft Extremities: Yes: WNL Edema: No Labs: CBC, BMP 10/07/16 07:50 10/09/16 06:20 INR, PTT INR 1.23 (0.82-1.09) H 09/30/16 11:30 Problem List - Problems (1) Acute respiratory failure Code(s): J96.00 - ACUTE RESPIRATORY FAILURE, UNSP W HYPOXIA OR HYPERCAPNIA (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 - OTHER DISORDERS OF PHOSPHORUS METABOLISM (3) Hypophosphatemia Code(s): E83.39 - OTHER DISORDERS OF PHOSPHORUS METABOLISM (4) Septic shock Code(s): A41.9 - SEPSIS, UNSPECIFIED ORGANISM R65.21 - SEVERE SEPSIS WITH SEPTIC SHOCK (5) Decubital ulcer Code(s): L89.90 - PRESSURE ULCER OF UNSPECIFIED SITE, UNSPECIFIED STAGE Qualifiers: Pressure ulcer stage: stage IV Qualified Code(s): L89.94 - Pressure ulcer of unspecified site, stage 4 (6) Dementia Code(s): F03.90 - UNSPECIFIED DEMENTIA WITHOUT BEHAVIORAL DISTURBANCE Qualifiers: Dementia type: unspecified type Dementia behavioral disturbance: without behavioral disturbance Qualified Code(s): F03.90 - Unspecified dementia without behavioral disturbance (7) Seizure Code(s): R56.9 - UNSPECIFIED CONVULSIONS Qualifiers: Convulsion type: unspecified Qualified Code(s): R56.9 - Unspecified convulsions Assessment/Plan /P UTI s/p Septic Shock Sacral Decubitus Ulcer s/p Acute Respiratory Failure Seizure Disorder DM - wound care - morphine for comfort - DVT prophylaxis DR BUCHANAN
[2016-10-16] MEDS: DEXTROSE 5%-0.45% SALINE 1,000 ML IV SCH (16:23)
--- NOTE | 2016-10-17 09:35 | PN ---
Progress Note, Physician Chief Complaint: alert awake NAD poor po intake - Current Medication List Current Medications: Active Medications Dextrose/Sodium Chloride (D5-1/2ns -) 1,000 mls @ 50 mls/hr IV ASDIR [facility] Last Admin: 10/16/16 16:23 Dose: 50 mls/hr Levetiracetam (Keppra Injection -) 500 mg IVPB BID [facility] Last Admin: 10/16/16 22:43 Dose: 500 mg Morphine Sulfate (Morphine Injection -) 2 mg IVPUSH Q4H PRN PRN Reason: COMFORT Nystatin (Nystop Powder -) 1 applic TP DAILY [facility] Last Admin: 10/16/16 09:56 Dose: 1 applic - Objective Vital Signs: Vital Signs Temperature 98.8 F 10/17/16 05:43 Pulse Rate 79 10/17/16 09:06 Respiratory Rate 20 10/17/16 09:06 Blood Pressure 95/68 10/17/16 09:06 O2 Sat by Pulse Oximetry (%) 98 10/16/16 21:00 Constitutional: Yes: No Distress, Calm Eyes: Yes: Conjunctiva Clear HENT: Yes: Atraumatic Neck: Yes: Supple Cardiovascular: Yes: Regular Rate and Rhythm Respiratory: Yes: Diminished Gastrointestinal: Yes: Soft. No: Distention Genitourinary: No: Hematuria Musculoskeletal: No: Joint Stiffness, Joint Swelling Extremities: No: Cold, Cool Edema: No Integumentary: No: Rash Neurological: Yes: Alert. No: Oriented Psychiatric: Yes: Alert. No: Oriented Labs: CBC, BMP 10/07/16 07:50 10/09/16 06:20 INR, PTT INR 1.23 (0.82-1.09) H 09/30/16 11:30 - ....Imaging Other: Report Reviewed Assessment/Plan s/p UTI, s/p Septic Shock Sacral Decubitus Ulcer s/p Acute Respiratory Failure Seizure Disorder DM, NHR, decreased po intake - Aspiration precautions - wound care - morphine for comfort - DVT prophylaxis - DNR/DNI poor prognosis - Supportive measures pt accepted for INPT hospice since 10/09
[2016-10-17] MEDS: levETIRAcetam 500 MG/5 ML INJECTION VIAL IVPB SCH ×2 (09:41→22:02)
[2016-10-17] MEDS: NYSTATIN POWDER 100,000 UNITS/GM - 15 GM TOPICAL POWDER TP SCH (09:41)
[2016-10-17] MEDS: DEXTROSE 5%-0.45% SALINE 1,000 ML IV SCH (09:42)
--- NOTE | 2016-10-17 13:05 | PN ---
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 Nursing reports pt prefers vanilla over cyn and tolerates ensure at [place]. No reported congestion. Performance unchanged. No SOB observed. trial of vanilla ensure ordered. feed slowly, 1 sip at a time, seated upright. Monitor PO tolerance and pulmonary function.
[2016-10-18] MEDS: DEXTROSE 5%-0.45% SALINE 1,000 ML IV SCH ×2 (06:09→11:49)
--- NOTE | 2016-10-18 08:30 | PN ---
Progress Note, Physician Chief Complaint: in bed NAD - Current Medication List Current Medications: Active Medications Dextrose/Sodium Chloride (D5-1/2ns -) 1,000 mls @ 50 mls/hr IV ASDIR [facility] Last Admin: 10/18/16 06:09 Dose: 50 mls/hr Levetiracetam (Keppra Injection -) 500 mg IVPB BID [facility] Last Admin: 10/17/16 22:02 Dose: 500 mg Morphine Sulfate (Morphine Injection -) 2 mg IVPUSH Q4H PRN PRN Reason: COMFORT Nystatin (Nystop Powder -) 1 applic TP DAILY [facility] Last Admin: 10/17/16 09:41 Dose: 1 applic - Objective Vital Signs: Vital Signs Temperature 98.6 F 10/18/16 06:00 Pulse Rate 83 10/18/16 06:00 Respiratory Rate 22 10/18/16 06:00 Blood Pressure 90/59 10/18/16 06:00 O2 Sat by Pulse Oximetry (%) 99 10/17/16 21:00 Constitutional: Yes: No Distress, Calm Eyes: Yes: Conjunctiva Clear HENT: Yes: Atraumatic Neck: Yes: Supple Cardiovascular: Yes: Regular Rate and Rhythm Gastrointestinal: Yes: Soft. No: Distention, Tenderness Genitourinary: No: CVA Tenderness - Left, CVA Tenderness - Right Musculoskeletal: No: Joint Stiffness, Joint Swelling Extremities: No: Cold, Cool Edema: No Peripheral Pulses WNL: Yes Neurological: No: Alert Psychiatric: No: Alert, Agitated Labs: CBC, BMP 10/07/16 07:50 10/09/16 06:20 INR, PTT INR 1.23 (0.82-1.09) H 09/30/16 11:30 - ....Imaging Other: Report Reviewed Assessment/Plan s/p UTI, s/p Septic Shock Sacral Decubitus Ulcer s/p Acute Respiratory Failure Seizure Disorder DM, NHR, decreased po intake - Aspiration precautions - wound care - morphine for comfort - DVT prophylaxis - DNR/DNI poor prognosis - Supportive measures pt accepted for INPT hospice since 10/09
[2016-10-18] MEDS: levETIRAcetam 500 MG/5 ML INJECTION VIAL IVPB SCH ×2 (09:12→22:15)
[2016-10-18] MEDS: NYSTATIN POWDER 100,000 UNITS/GM - 15 GM TOPICAL POWDER TP SCH (09:13)
[2016-10-19] MEDS: DEXTROSE 5%-0.45% SALINE 1,000 ML IV SCH ×2 (06:10→10:30)
--- NOTE | 2016-10-19 09:59 | PN ---
Progress Note, Physician History of Present Illness: Pt. cannot provide ROS , secondary of dementia. Pt is admitted to inpatient Hospice care. Pt. is able to tolerate PO intake (case was reviewed with pt.'s nurse). - Current Medication List Current Medications: Active Medications Dextrose/Sodium Chloride (D5-1/2ns -) 1,000 mls @ 50 mls/hr IV ASDIR [facility] Last Admin: 10/19/16 06:10 Dose: 50 mls/hr Levetiracetam (Keppra Injection -) 500 mg IVPB BID [facility] Last Admin: 10/18/16 22:15 Dose: 500 mg Morphine Sulfate (Morphine Injection -) 2 mg IVPUSH Q4H PRN PRN Reason: COMFORT Nystatin (Nystop Powder -) 1 applic TP DAILY [facility] Last Admin: 10/18/16 09:13 Dose: 1 applic - Objective Vital Signs: Vital Signs Temperature 98.1 F 10/19/16 06:00 Pulse Rate 79 10/19/16 06:00 Respiratory Rate 22 10/19/16 06:00 Blood Pressure 107/73 10/19/16 06:00 O2 Sat by Pulse Oximetry (%) 98 10/18/16 21:00 Constitutional: Yes: No Distress, Calm Cardiovascular: Yes: Regular Rate and Rhythm, S1, S2 Respiratory: Yes: Regular, CTA Bilaterally. No: Rales Gastrointestinal: Yes: Normal Bowel Sounds, Soft Edema: No Labs: CBC, BMP 10/07/16 07:50 10/09/16 06:20 INR, PTT INR 1.23 (0.82-1.09) H 09/30/16 11:30 Problem List - Problems (1) Hospice care patient Assessment/Plan: To keep pt. comfortable. Pt. is on IV Keppra Morphine PRN for comfort (2) Septic shock Assessment/Plan: Resolved- treated with IV abtx. Code(s): A41.9 - SEPSIS, UNSPECIFIED ORGANISM R65.21 - SEVERE SEPSIS WITH SEPTIC SHOCK (3) Acute respiratory failure Assessment/Plan: on O2 supplementation PRN Code(s): J96.00 - ACUTE RESPIRATORY FAILURE, UNSP W HYPOXIA OR HYPERCAPNIA (4) UTI (urinary tract infection) Assessment/Plan: Pt was treated with IV abtx. Code(s): N39.0 - URINARY TRACT INFECTION, SITE NOT SPECIFIED Qualifiers: Urinary tract infection type: catheter-associated UTI Indwelling urinary catheter type: indwelling urethral catheter Encounter type: initial encounter Qualified Code(s): T83.511A - Infection and inflammatory reaction due to indwelling urethral catheter, initial encounter; N39.0 - Urinary tract infection, site not specified (5) Ulcer of sacral region, stage 4 Assessment/Plan: Chronic Hx/o OM. Pt. with good urinary output; case was discussed yesterday with pt.'s nurse ( Maggy) who recommended Alfred for sacral decubitus wound management. Code(s): L89.154 - PRESSURE ULCER OF SACRAL REGION, STAGE 4 (6) Diabetes mellitus Assessment/Plan: Pt. on Hospice care, on BGM done at this time Code(s): E11.9 - TYPE 2 DIABETES MELLITUS WITHOUT COMPLICATIONS Qualifiers: Diabetes mellitus type: other specified (including FERCHO) (7) Endocarditis Assessment/Plan: HX/o endocarditis Code(s): I38 - ENDOCARDITIS, VALVE UNSPECIFIED (8) Seizure Assessment/Plan: on IV Keppra- cannot tolerate PO. Code(s): R56.9 - UNSPECIFIED CONVULSIONS Qualifiers: Convulsion type: unspecified Qualified Code(s): R56.9 - Unspecified convulsions Assessment/Plan Pt. with poor prognosis given overall status, current medical condition. Pt. is DNR, DNI. Pt. on Hospice care Case4 was d/w CM; consider to DC to [facility] on Hospice care.
[2016-10-19] MEDS: levETIRAcetam 500 MG/5 ML INJECTION VIAL IVPB SCH (10:29)
[2016-10-19] MEDS: NYSTATIN POWDER 100,000 UNITS/GM - 15 GM TOPICAL POWDER TP SCH (10:29)
[2016-10-19 11:06] VITALS: BP 107/62; PULSE 68; TEMP 98
--- NOTE | 2016-10-19 11:51 | PN ---
Progress Note (short form) - Note Progress Note: PULMONARY No fevers recorded. Lethargic. Last Vital Signs Temp Pulse Resp BP Pulse Ox 98.0 F 68 18 107/62 98 10/19/16 10:00 10/19/16 10:00 10/19/16 10:00 10/19/16 10:00 10/19/16 09:00 Gen: lethargic Heart: RRR Lung: scattered rhonchi Abd: soft, nontender Ext: trace edema CBC, BMP 10/07/16 07:50 10/09/16 06:20 Active Medications Dextrose/Sodium Chloride (D5-1/2ns -) 1,000 mls @ 50 mls/hr IV ASDIR [facility] Last Admin: 10/19/16 10:30 Dose: Not Given Levetiracetam (Keppra Injection -) 500 mg IVPB BID [facility] Last Admin: 10/19/16 10:29 Dose: 500 mg Morphine Sulfate (Morphine Injection -) 2 mg IVPUSH Q4H PRN PRN Reason: COMFORT Nystatin (Nystop Powder -) 1 applic TP DAILY [facility] Last Admin: 10/19/16 10:29 Dose: 1 applic A/P UTI s/p Septic Shock Sacral Decubitus Ulcer s/p Acute Respiratory Failure Seizure Disorder DM - s/p antibiotics - morphine for comfort - agree with hospice placement
--- NOTE | 2016-10-19 12:38 | DS ---
Physical Examination Vital Signs: Vital Signs Temperature 98.0 F 10/19/16 10:00 Pulse Rate 68 10/19/16 10:00 Respiratory Rate 18 10/19/16 10:00 Blood Pressure 107/62 10/19/16 10:00 O2 Sat by Pulse Oximetry (%) 98 10/19/16 09:00 Findings/Remarks: See today progress note for ROS, PE, PLAN Labs: CBC, BMP 10/07/16 07:50 10/09/16 06:20 Discharge Summary Reason For Visit: SEPSIS, SACRAL DECUBITUS Current Active Problems OZZIE (acute kidney injury) (Acute) Acute renal insufficiency (Acute) Acute respiratory failure (Acute) Elevated liver enzymes (Acute) Hospice care patient (Acute) Hypophosphatasia (Acute) Hypophosphatemia (Acute) Sacral decubitus ulcer (Acute) Sepsis (Acute) Septic shock (Acute) UTI (urinary tract infection) due to urinary indwelling catheter (Acute) Hospital Course: Pt. was transfered from [facility] for fevr, found to be in septic shock ( probable secondary to UTI), was admitted to ICU, treated with IV abtx. Pt.'s sepsis improved; pt with dysphagia, minimal improvement in clinical condition, has placed under Hospice care. Pt. would be transfered to [facility]. Condition: Guarded - Instructions Diet, Activity, Other Instructions: PO as tolerated Disposition: [facility] - Home Medications Comprehensive Discharge Medication List: Ambulatory Orders Acetaminophen [Extra Strength Non-Aspirin] 500 mg PO BID 09/30/16 Levetiracetam Injection [Keppra Injection -] 500 mg IVPB BID ml 10/19/16 Morphine Injection - [Morphine Injection 2 mg/1 mL -] 2 mg IVPUSH Q4H PRN #10 dose MDD 6 10/19/16 Nystatin Powder [Nystop Powder -] 1 applic TP DAILY applic 10/19/16
== END 2016-10-19 13:06 | disposition hospice, inpatient (51) | DRG 720 ==
LOC: JER 10:47 → JERBED 12:14 → JICU 20:18 → J6S 10-02 18:27
PROVIDERS: ADMIT Specialist; ATTEND Specialist
PROC: 5A09557 Assistance with Respiratory Ventilation, Greater than 96 Consecutive Hours, Continuous Positive Airway Pressure (ICD-10-PCS; principal; 2016-10-01)
DX: A41.9 Sepsis, unspecified organism (principal); R65.21 Severe sepsis with septic shock; L89.154 Pressure ulcer of sacral region, stage 4; N39.0 Urinary tract infection, site not specified; N17.9 Acute kidney failure, unspecified; J96.00 Acute respiratory failure, unspecified whether with hypoxia or hypercapnia; G40.909 Epilepsy, unspecified, not intractable, without status epilepticus; E11.9 Type 2 diabetes mellitus without complications; E83.39 Other disorders of phosphorus metabolism; F03.90 Unspecified dementia, unspecified severity, without behavioral disturbance, psychotic disturbance, mood disturbance, and anxiety; E87.6 Hypokalemia; E83.42 Hypomagnesemia; E87.0 Hyperosmolality and hypernatremia; R74.0 Nonspecific elevation of levels of transaminase and lactic acid dehydrogenase [LDH]; E87.5 Hyperkalemia; R13.10 Dysphagia, unspecified
CPT/HCPCS: 36415; 36600; 71010-TC; 76700-TC; 80048; 80053; 80076; 81003; 81015; 82550; 82803; 82977; 83605; 83735; 84100; 84443; 84484; 85025; 85027; 85610; 85730; 86850; 86900; 86901; 87040; 87070; 87086; 87186; 87205; 93005; 93010; 94660; 99285-25; J1644